=== PATIENT | male | born 1960 | race Caucasian/White ===

== ENCOUNTER 2019-01-01 11:44 | Emergency (ER) | payer MEDICAID, OTHER ==
[~2019-01-01] VITALS: Ht 185.4 cm; Wt 145.1 kg
[2019-01-01 12:43] LABS: Basophils # (auto) 0.1 uL; Basophils % (auto) 0.9 % (0.0-2.0); Eosinophils # (auto) 0.1 uL; Eosinophils % (auto) 0.7 % (0.0-7.0); Hematocrit 46.7 % (41.0-53.0); Hemoglobin 16.1 g/dL (13.5-17.5); Lymphocytes # (auto) 2.1 uL; Lymphocytes % (auto) 21.9 % (10.0-50.0); Mean Corpuscular Hemoglobin 29.6 pg (28.0-32.0); Mean Corpuscular Hgb Conc. 34.5 g/dL (32.0-36.0); Mean Corpuscular Volume 85.8 fL (80.0-100.0); Monocytes # (auto) 0.6 uL; Monocytes % (auto) 6.5 % (0.0-12.0); Neutrophils # (auto) 6.6 uL; Nucleated Red Blood Cells % 0.1 %; Platelet Count (auto) 176 10^3/uL (140-450); Red Blood Cells 5.44 10^6/uL (4.5-5.90); Red Cell Distribution Width 12.8 % (11.8-14.3); White Blood Cell 9.4 10^3/uL (4.4-10.8)
[2019-01-01 12:54] LABS: Albumin 3.4 g/dL (3.4-5.0); Calcium 8.9 mg/dL (8.5-10.1); Potassium 3.7 mmol/L (3.5-5.1)
[2019-01-01 12:59] LABS: BUN/Creatinine Ratio 18.2; Bilirubin, Total 1.1 mg/dL (0.2-1.0); Total Protein 7.5 g/dL (6.4-8.2)
[2019-01-01 15:00] VITALS: BP 119/75
== END 2019-01-01 15:38 | disposition home or self-care (01) ==
LOC: ER 11:44
DX: L03.116 Cellulitis of left lower limb (principal)
CPT/HCPCS: 36415; 80053; 85025; 87040; 93971

== ENCOUNTER 2019-01-05 07:14 | Inpatient (IN) | payer MEDICAID ==
[~2019-01-05] VITALS: Ht 185.4 cm; Wt 133.0 kg
[2019-01-05] MEDS ORDERED: SODIUM CHLORIDE 0.9% 1,000 ML IV ONE ×2 (07:55)
[2019-01-05] MEDS ORDERED: cefTRIAXone 1GM/50ML D5W 50 ML IV ONE (08:00)
[2019-01-05] MEDS ORDERED: PIPERACILLIN-TAZOB 3.375GM 100 ML IV ONE (08:00)
[2019-01-05] MEDS ORDERED: InsuLIN REG 1unit/0.01ml Soln (100units/ml) IV ONE (08:00)
[2019-01-05] MEDS ORDERED: CLINDAMYCIN 900MG IV 50 ML IV ONE (08:00)
[2019-01-05 08:11] LABS: Basophils # (auto) 0.1 uL; Basophils % (auto) 1.1 % (0.0-2.0); Eosinophils # (auto) 0.1 uL; Eosinophils % (auto) 1.5 % (0.0-7.0); Hematocrit 45.9 % (41.0-53.0); Hemoglobin 15.4 g/dL (13.5-17.5); Lymphocytes # (auto) 1.9 uL; Lymphocytes % (auto) 21.8 % (10.0-50.0); Mean Corpuscular Hemoglobin 29.1 pg (28.0-32.0); Mean Corpuscular Hgb Conc. 33.5 g/dL (32.0-36.0); Mean Corpuscular Volume 86.8 fL (80.0-100.0); Monocytes # (auto) 0.5 uL; Monocytes % (auto) 6.1 % (0.0-12.0); Neutrophils # (auto) 5.9 uL; Neutrophils % (auto) 69.5 % (37.0-80.0); Platelet Count (auto) 207 10^3/uL (140-450); Red Blood Cells 5.29 10^6/uL (4.5-5.90); Red Cell Distribution Width 12.8 % (11.8-14.3); White Blood Cell 8.5 10^3/uL (4.4-10.8)
[2019-01-05 08:23] LABS: Potassium 3.5 mmol/L (3.5-5.1)
[2019-01-05 08:24] LABS: Albumin 3.1 g/dL (3.4-5.0); BUN/Creatinine Ratio 20.2; Calcium 8.4 mg/dL (8.5-10.1)
[2019-01-05 08:25] LABS: INR 0.95 (0.9-1.15); Partial Thromboplastin Time 28.5 sec (23.64-32.05)
[2019-01-05 08:26] LABS: Bilirubin, Total 1.2 mg/dL (0.2-1.0); Total Protein 7.5 g/dL (6.4-8.2)
[2019-01-05 09:11] LABS: Urine WBC None Seen /hpf (0 - 3)
[2019-01-05 09:15] LABS: Urine Bacteria NONE SEEN /hpf (None Seen); Urine Blood Negative /uL (Negative); Urine Specific Gravity 1.036 (1.001-1.035)
[2019-01-05] MEDS ORDERED: IOHEXOL 350 MG/ML 100ML IJ ONE (10:29)
[2019-01-05] MEDS ORDERED: MORPHINE SULF INJ 2 MG/ML SYRINGE 1ML IV PRN ×2 (12:00)
[2019-01-05] MEDS ORDERED: ONDANSETRON HCL 4 MG/2 ML VIAL IV PRN (12:00)
[2019-01-05] MEDS ORDERED: HYDROcodone-ACET 5/325MG TAB PO PRN (12:00)
[2019-01-05] MEDS ORDERED: NITROGLYCERIN 0.4 MG SL TAB SL PRN (12:00)
[2019-01-05] MEDS ORDERED: DEXTROSE (50%) 50ML SYRG IV PRN (12:00)
[2019-01-05] MEDS ORDERED: ACETAMINOPHEN 500 MG TAB PO PRN (12:00)
[2019-01-05] MEDS ORDERED: CLINDAMYCIN 300MG IV 50 ML IV SCH (14:00)
[2019-01-05] MEDS: CLINDAMYCIN 300MG IV 50 ML IV SCH ×2 (16:30→23:54)
[2019-01-05 17:00] VITALS: BP 105/47
[2019-01-05] MEDS: InsuLIN REG 1unit/0.01ml Soln (100units/ml) SC SCH ×2 (18:13→23:53)
[2019-01-05] MEDS: ACCU-CHEK COMFORT CURVE STRIP VI SCH ×2 (18:13→23:54)
[2019-01-05 22:00] VITALS: BP 101/62
[2019-01-06 05:00] VITALS: BP_SYST 115; BP_SYST 122; BP_DIAS 69; BP_DIAS 75
[2019-01-06 06:26] LABS: Basophils # (auto) 0.1 uL; Basophils % (auto) 0.8 % (0.0-2.0); Eosinophils # (auto) 0.1 uL; Eosinophils % (auto) 2.1 % (0.0-7.0); Hematocrit 42.1 % (41.0-53.0); Hemoglobin 14.6 g/dL (13.5-17.5); Lymphocytes # (auto) 1.8 uL; Lymphocytes % (auto) 25.9 % (10.0-50.0); Mean Corpuscular Hemoglobin 29.8 pg (28.0-32.0); Mean Corpuscular Hgb Conc. 34.6 g/dL (32.0-36.0); Mean Corpuscular Volume 86.1 fL (80.0-100.0); Monocytes # (auto) 0.5 uL; Monocytes % (auto) 6.9 % (0.0-12.0); Neutrophils # (auto) 4.5 uL; Neutrophils % (auto) 64.3 % (37.0-80.0); Platelet Count (auto) 183 10^3/uL (140-450); Red Blood Cells 4.89 10^6/uL (4.5-5.90); Red Cell Distribution Width 12.9 % (11.8-14.3); White Blood Cell 7.1 10^3/uL (4.4-10.8)
[2019-01-06 06:27] LABS: Albumin 2.4 g/dL (3.4-5.0); Calcium 7.8 mg/dL (8.5-10.1); Potassium 3.9 mmol/L (3.5-5.1)
[2019-01-06 06:32] LABS: BUN/Creatinine Ratio 24.6; Bilirubin, Total 0.6 mg/dL (0.2-1.0); Total Protein 6.5 g/dL (6.4-8.2)
[2019-01-06] MEDS: InsuLIN REG 1unit/0.01ml Soln (100units/ml) SC SCH ×4 (06:38→21:45)
[2019-01-06] MEDS: ACCU-CHEK COMFORT CURVE STRIP VI SCH ×4 (06:38→21:39)
--- NOTE | 2019-01-06 08:00 | NUR ---
Opening Shift Note Assumed care of patient, awake and alert. No S/S of distress/SOB or pain. Instructed on POC and to call for assist PRN, will continue to monitor for changes Q1hr and PRN.
[2019-01-06 09:00] VITALS: BP 124/70
[2019-01-06] MEDS: CLINDAMYCIN 300MG IV 50 ML IV SCH ×2 (09:03→16:59)
[2019-01-06] MEDS: cefTRIAXone 1GM/50ML D5W 50 ML IV SCH (09:03)
[2019-01-06] MEDS: FAMOTIDINE 20 MG TAB PO SCH (09:39)
[2019-01-06 12:52] VITALS: BP 134/72
[2019-01-06 16:48] VITALS: BP 124/83
--- NOTE | 2019-01-06 19:15 | NUR ---
Opening Shift Note Assumed care of patient, awake and alert. No S/S of distress/SOB or pain. POC discussed and questions answered. Bed is locked in lowest position with side rails up x2 for safety. Call light is within reach and patient is encouraged to call if needs anything. Will continue to monitor for changes Q1hr and PRN.
[2019-01-06 22:27] VITALS: BP 109/67
[2019-01-07] MEDS: CLINDAMYCIN 300MG IV 50 ML IV SCH ×3 (00:20→17:50)
[2019-01-07 05:35] VITALS: BP 124/71
[2019-01-07] MEDS: ACCU-CHEK COMFORT CURVE STRIP VI SCH ×4 (06:29→22:35)
[2019-01-07] MEDS: InsuLIN REG 1unit/0.01ml Soln (100units/ml) SC SCH ×4 (06:38→22:40)
--- NOTE | 2019-01-07 08:10 | NUR ---
OPENING SHIFT NOTE ASSUMED CARE OF PATIENT. PATIENT AWAKE AND ALERT & ORIENTED X4. NO SOB OR SIGNS OF DISTRESS NOTED. INSTRUCTED ON POC AND TO CALL FOR ASSISTANCE PRN. BED IN LOWEST POSITION WITH SIDE RAILS UP X2. WILL CONTINUE TO MONITOR.
[2019-01-07 09:00] VITALS: BP 141/88
[2019-01-07] MEDS: FAMOTIDINE 20 MG TAB PO SCH (09:12)
--- NOTE | 2019-01-07 12:37 | NUR ---
Nutrition Assessment Notes please see attached link for complete assessment Est. Needs ABW [id number] kcal (20-23 kcal/kgBW), 108-118 gms pro (1.0-1.1 gms/kgBW). Will continue to monitor pertinent labs and reassess nutrient need prn Addendum: 01/07/19 at [address] Amended: Links added.
[2019-01-07 13:00] VITALS: BP 109/69
[2019-01-07] MEDS: cefTRIAXone 1GM/50ML D5W 50 ML IV SCH (13:09)
[2019-01-07] MEDS: INSULIN LANTUS (GLARGINE) 1 /0.01ml (100units/ml) SC SCH ×2 (13:10→22:40)
--- NOTE | 2019-01-07 13:20 | NUR ---
DR VIERA AT BEDSIDE.
[2019-01-07 16:58] VITALS: BP 134/89
[2019-01-07 22:00] VITALS: BP 119/71
[2019-01-08] MEDS: CLINDAMYCIN 300MG IV 50 ML IV SCH ×2 (00:28→08:08)
[2019-01-08 05:00] VITALS: BP 114/75
[2019-01-08] MEDS: ACCU-CHEK COMFORT CURVE STRIP VI SCH ×2 (06:31→13:21)
[2019-01-08] MEDS: InsuLIN REG 1unit/0.01ml Soln (100units/ml) SC SCH ×2 (06:36→11:30)
--- NOTE | 2019-01-08 08:53 | NUR ---
Opening Shift Note Assumed care of patient, awake and alert, oriented x 4 and verbally responsive. No S/S of distress/SOB or pain. Skin is warm and dry to touch, no s/s of hyperglycemia or hypoglycemia noted. Instructed on POC and to call for assist PRN, will continue to monitor for changes Q1hr and PRN.
[2019-01-08 09:00] VITALS: BP 113/67
[2019-01-08] MEDS: cefTRIAXone 1GM/50ML D5W 50 ML IV SCH (09:09)
[2019-01-08] MEDS: FAMOTIDINE 20 MG TAB PO SCH (09:55)
[2019-01-08] MEDS: INSULIN LANTUS (GLARGINE) 1 /0.01ml (100units/ml) SC SCH (09:55)
--- NOTE | 2019-01-08 11:45 | NUR ---
WOUND CARE NOTE: IN TO PROVIDE DRESSING CHANGE TO WOUND PER DR. VIERA ORDER. PATIENT TO BE DISCHARGED SHORTLY. DISCHARGE PHOTO TAKEN OF WOUND TO LEFT MEDIAL CALF PER PROTOCOL. PATIENT EDUCATED IN WOUND CARE AT THIS TIME. PATIENT VERBALIZED UNDERSTANDING. PATIENT TO FOLLOW UP WITH DR. VIERA FOR OUT PATIENT WOUND CARE. PATIENT TO FOLLOW UP FOR HIS NEWLY DIAGNOSED DIABETES MELLITUS WITH OUTPATIENT PAPER MACHINE TENDER. PATIENT VERBALIZED UNDERSTANDING ON HIS FOLLOW UP INSTRUCTIONS. WOUND CLEANSED, DRESSED PER MD ORDER. PATIENT TOLERATED DRESSING CHANGE WELL, NOTING NO PAIN BY PATIENT.
--- NOTE | 2019-01-08 12:08 | NUR ---
Wound nurse at bedside , dressing change.
--- NOTE | 2019-01-08 13:22 | NUR ---
Order placed for RN diabetic referral, patient notified.
--- NOTE | 2019-01-08 13:33 | NUR ---
Discharge instructions given as ordered. Encourage to follow up with PMD (DISCHARGE HOME. FOLLOW UP WITH DR CHARLA TORRE ON 01/15/19 @ 10:00AM, , [id number] [facility], [facility] [address], [place]. LIGHT ACTIVITY. DIABETIC DIET. SEE PODIATRY/DR SCOTT IN ONE WEEK. RX- TAKE DIRECTED. DIABETIC EDUCATION INFORMATION GIVEN FOR CLASSES.) as instructed. All questions and concerns addressed. Patient verbalized understanding. Medication reconciliation form completed and copy given to patient. IV removed with catheter intact, pressure dressing applied. Patient taken to vehicle via wheelchair with all personal belongings, accompanied by staff and family member. No distress noted at time of departure.
== END 2019-01-08 13:34 | disposition home or self-care (01) | DRG 383 ==
LOC: ER 07:14 → OVERFLOW 07:15 → ER 11:49 → OVERFLOW 12:52 → WEST WING 13:23
PROVIDERS: ADMIT Nurse Practitioner Acute Care; ATTEND Internal Medicine Nephrology
DX: L03.116 Cellulitis of left lower limb (principal); E44.1 Mild protein-calorie malnutrition; E66.01 Morbid (severe) obesity due to excess calories; M19.90 Unspecified osteoarthritis, unspecified site; E11.9 Type 2 diabetes mellitus without complications; Z68.38 Body mass index [BMI] 38.0-38.9, adult; Z80.1 Family history of malignant neoplasm of trachea, bronchus and lung; Z82.3 Family history of stroke
CPT/HCPCS: 36415; 71045; 71275; 73700; 80053; 80061; 81001; 82962; 83036; 83605; 84484; 85025; 85379; 85610; 85730; 87040; 87081; 93005; 93926; G0378; J0696; J1815; J2543; J3490

== ENCOUNTER 2019-09-01 21:31 | Inpatient (IN) | payer MEDICAID ==
[~2019-09-01] VITALS: Ht 185.4 cm; Wt 141.2 kg
[2019-09-01] MEDS ORDERED: ACCU-CHEK COMFORT CURVE STRIP VI ONE (22:15)
[2019-09-01 23:09] LABS: Hematocrit 48.8 % (41.0-53.0); Hemoglobin 16.8 g/dL (13.5-17.5); Mean Corpuscular Hemoglobin 29.5 pg (28.0-32.0); Mean Corpuscular Hgb Conc. 34.3 g/dL (32.0-36.0); Mean Corpuscular Volume 85.9 fL (80.0-100.0); Platelet Count (auto) 154 10^3/uL (140-450); Red Blood Cells 5.69 10^6/uL (4.5-5.90); Red Cell Distribution Width 13.7 % (11.8-14.3); White Blood Cell 20.7 10^3/uL (4.4-10.8)
[2019-09-01 23:14] LABS: Blast Cells 0; Eosinophils % (manual) 0 (0-7); Myelocytes % 0; Promyelocytes % 0; Reactive Lymphocytes 0
[2019-09-01 23:23] LABS: Band Neutrophils % (manual) 8; Basophils % (manual) 1 (0.0-2.0); Lymphocytes % (manual) 2 (10.0-50.0); Metamyelocytes % 1; Monocytes % (manual) 2 (0-12)
[2019-09-01 23:27] LABS: Chloride 98 mmol/L (98-107); Lactic Acid w/Reflex 2.5 mmol/L (0.4-2.0); Potassium 3.5 mmol/L (3.5-5.1); Sodium 131 mmol/L (136-145)
[2019-09-01 23:32] LABS: Alanine Aminotransferase 66 U/L (16-61); Anion Gap 7 (5-15); Aspartate Aminotransferase 57 U/L (15-37); BUN/Creatinine Ratio 12.4; Blood Urea Nitrogen 13 mg/dL (7-18); Carbon Dioxide 26 mmol/L (21-32); GFR African American 94 mL/min; GFR Non-African American 77 mL/min; Glucose 202 mg/dL (74-106); Total Protein 7.2 g/dL (6.4-8.2)
[2019-09-01 23:37] LABS: Alkaline Phosphatase 105 U/L (45-117); Bilirubin, Total 2.5 mg/dL (0.2-1.0)
[2019-09-02] MEDS ORDERED: VANCOMYCIN PER PHARMACY 1,000 MG IV SCH
[2019-09-02] MEDS ORDERED: VANCOMYCIN 1GM/250ML 250 ML IV ONE ×2 (00:15)
[2019-09-02] MEDS ORDERED: SODIUM CHLORIDE 0.9% 3,000 ML IV ONE (00:15)
[2019-09-02] MEDS: PIPERACILLIN-TAZOB 3.375GM 100 ML IV SCH ×2 (00:27→06:01)
[2019-09-02 00:37] LABS: INR 1.23 (0.9-1.15); Partial Thromboplastin Time 31.4 sec (23.64-32.05)
[2019-09-02 01:01] LABS: Urine Bacteria FEW /hpf (None Seen); Urine Blood Negative /uL (Negative); Urine Mucus FEW (None Seen); Urine Specific Gravity 1.016 (1.001-1.035); Urine WBC <1 /hpf (0 - 3)
[2019-09-02] MEDS ORDERED: ACETAMINOPHEN 650 MG RECT SUPP PR ONE (01:45)
[2019-09-02] MEDS ORDERED: IOHEXOL 350 MG/ML 100ML IJ ONE ×2 (02:36)
[2019-09-02] MEDS ORDERED: SODIUM CHLORIDE 0.9% 500 ML IV ONE (04:45)
[2019-09-02] MEDS ORDERED: HYDROcodone-ACET 5/325MG TAB PO PRN (04:45)
[2019-09-02] MEDS ORDERED: MORPHINE SULF INJ 2 MG/ML SYRINGE 1ML IV PRN (04:45)
[2019-09-02] MEDS ORDERED: ONDANSETRON HCL 4 MG/2 ML VIAL IV PRN (04:45)
[2019-09-02] MEDS ORDERED: NITROGLYCERIN 0.4 MG SL TAB SL PRN (04:45)
[2019-09-02] MEDS ORDERED: TEMAZEPAM 15 MG CAP PO PRN (04:45)
[2019-09-02] MEDS ORDERED: DEXTROSE (50%) 50ML SYRG IV PRN (04:45)
[2019-09-02] MEDS: ACCU-CHEK COMFORT CURVE STRIP VI SCH ×4 (05:48→23:51)
[2019-09-02] MEDS: InsuLIN REG 1unit/0.01ml Soln (100units/ml) SC SCH ×4 (05:58→23:51)
[2019-09-02] MEDS ORDERED: CLINDAMYCIN 600MG IV 50 ML IV SCH (06:00)
[2019-09-02] MEDS ORDERED: metroNIDAZOLE 500MG/100ML 100 ML IV SCH (06:00)
[2019-09-02] MEDS: SODIUM CHLORIDE 0.9% 1,000 ML IV SCH ×2 (06:12→16:31)
[2019-09-02] MEDS: ACETAMINOPHEN 325 MG TAB PO PRN ×2 (07:38→21:31)
[2019-09-02] MEDS ORDERED: cefTRIAXone 1GM/50ML D5W 50 ML IV SCH (09:00)
[2019-09-02 09:30] VITALS: BP 115/64
--- NOTE | 2019-09-02 09:30 | NUR ---
Telemetry admit from ER JACQUELYNCHASTITY admitted to Telemetry unit after SBAR received. Patient oriented to MIKEY gardner RN, unit, room, bed, and unit policies regarding patient care and visiting hours. Patient now on continuous telemetry monitoring, tele box # 8 and telemetry reading on arrival to unit is NSRv at 92 bpm. Patient placed on bedside oxygen 2L via nasal cannula, weighed by bedscale and encouraged to call if they need something. All questions and concerns addressed, patient verbalized understanding.
[2019-09-02] MEDS: PANTOPRAZOLE 40 MG TAB PO SCH (11:38)
[2019-09-02] MEDS: VANCOMYCIN 1GM/250ML 250 ML IV SCH ×2 (11:39→18:07)
[2019-09-02 12:00] VITALS: BP 115/77
--- NOTE | 2019-09-02 14:00 | NUR ---
physician rounding Dr. Ken at bedside. Updated her on patient status. New orders received, I will follow through.
[2019-09-02 14:04] VITALS: BP 115/77
[2019-09-02 14:46] VITALS: BP 136/74
[2019-09-02] MEDS ORDERED: PIPERACILLIN-TAZOB 3.375GM 100 ML IV SCH (15:00)
[2019-09-02 15:23] LABS: Alcohol, Urine < 3.0 mg/dL (0-10); Amphetamine Screen, Urine POSITIVE (NEGATIVE); Barbiturate Scree,Urine NEGATIVE (NEGATIVE); Benzodiazephine Screen, Urine NEGATIVE (NEGATIVE); Cannabinoid Screen, Urine NEGATIVE (NEGATIVE); Cocaine Screen, Urine NEGATIVE (NEGATIVE); Opiate Scree,Urine NEGATIVE (NEGATIVE); Phencyclidine Screen, Urine NEGATIVE (NEGATIVE)
--- NOTE | 2019-09-02 15:30 | NUR ---
Spoke with family Spoke with patients daughter, updated her on plan of care, she verbalized understanding.
[2019-09-02] MEDS: PIPERACILLIN-TAZO 4.5GM 100 ML IV SCH ×2 (15:46→21:31)
[2019-09-02 17:00] VITALS: BP 123/75
--- NOTE | 2019-09-02 17:50 | NUR ---
Cooling Measures applied. Patient currently has temp of 99.0 , cooling measures in place.
--- NOTE | 2019-09-02 18:50 | NUR ---
Temperature reassessment After cooling measures were implemented, patients temperature decreased to 97.3. No signs and symptoms of distress noted. I will continue to monitor q1hr and PRN.
--- NOTE | 2019-09-02 19:16 | NUR ---
end of shift note endorsed care to noc brian encarnacion. no s/s of distress noted at this time.
--- NOTE | 2019-09-02 19:31 | NUR ---
Opening Shift Note Assumed care of patient, awake and alert x 4. No S/S of distress/SOB. Bed is in lowest position and locked. Call light within reach. Board updated. Tele box number matches monitor and leads are in correct placement. NS infusing at 100 mls/hr. Instructed on POC and to call for assist PRN, will continue to monitor for changes Q1hr and PRN.
[2019-09-02 22:00] VITALS: BP 119/67
--- NOTE | 2019-09-03 00:12 | NUR ---
Temperature reassessment: 99.2 degrees. Will continue to assess.
[2019-09-03] MEDS: VANCOMYCIN 1GM/250ML 250 ML IV SCH ×2 (02:05→10:36)
--- NOTE | 2019-09-03 02:15 | NUR ---
Temp reassessment: 99.2. Will continue to monitor.
[2019-09-03] MEDS: SODIUM CHLORIDE 0.9% 1,000 ML IV SCH ×2 (04:44→13:30)
[2019-09-03] MEDS: ACCU-CHEK COMFORT CURVE STRIP VI SCH ×3 (05:23→18:16)
[2019-09-03] MEDS: PIPERACILLIN-TAZO 4.5GM 100 ML IV SCH (05:23)
[2019-09-03] MEDS: InsuLIN REG 1unit/0.01ml Soln (100units/ml) SC SCH ×3 (05:38→18:12)
[2019-09-03 05:46] VITALS: BP 128/62
[2019-09-03 06:22] LABS: Basophils # (auto) 0 10 ^3/uL (0-0.2); Basophils % (auto) 0.4 % (0.0-2.0); Eosinophils # (auto) 0 10 ^3/uL (0-0.8); Eosinophils % (auto) 0.2 % (0.0-7.0); Hematocrit 42.5 % (41.0-53.0); Hemoglobin 14.6 g/dL (13.5-17.5); Lymphocytes # (auto) 0.7 10 ^3/uL (0.4-5.4); Lymphocytes % (auto) 8.6 % (10.0-50.0); Mean Corpuscular Hemoglobin 29.4 pg (28.0-32.0); Mean Corpuscular Hgb Conc. 34.4 g/dL (32.0-36.0); Mean Corpuscular Volume 85.4 fL (80.0-100.0); Monocytes # (auto) 0.6 10 ^3/uL (0-1.3); Monocytes % (auto) 6.9 % (0.0-12.0); Neutrophils # (auto) 7.3 10 ^3/uL (1.6-8.6); Neutrophils % (auto) 83.9 % (37.0-80.0); Nucleated Red Blood Cells % 0.3 %; Platelet Count (auto) 114 10^3/uL (140-450); Red Blood Cells 4.98 10^6/uL (4.5-5.90); Red Cell Distribution Width 13.4 % (11.8-14.3); White Blood Cell 8.7 10^3/uL (4.4-10.8)
[2019-09-03 06:39] LABS: Albumin 2.5 g/dL (3.4-5.0); Calcium 7.8 mg/dL (8.5-10.1); Potassium 3.1 mmol/L (3.5-5.1)
[2019-09-03 06:44] LABS: BUN/Creatinine Ratio 11.8; Bilirubin, Total 2.7 mg/dL (0.2-1.0); Total Protein 6.3 g/dL (6.4-8.2)
[2019-09-03 06:54] LABS: Magnesium 2.2 mg/dL (1.6-2.6)
--- NOTE | 2019-09-03 07:30 | NUR ---
Opening Shift Note Assumed care of patient, awake and alert. No S/S of distress/SOB or pain. Instructed on POC and to call for assist PRN, will continue to monitor for changes Q1hr and PRN.
[2019-09-03 09:00] VITALS: BP 149/75
[2019-09-03 09:37] LABS: Hepatitis B Surface Antibody Negative
--- NOTE | 2019-09-03 09:49 | NUR ---
Patient's belongings: shoes, shorts, belt, slippers, underwear, wallet sent home with family member Eddie Trino.
[2019-09-03 10:08] LABS: Hepatitis A Total Antibody Negative
[2019-09-03] MEDS: PANTOPRAZOLE 40 MG TAB PO SCH (10:36)
[2019-09-03] MEDS: ENOXAPARIN SOD 40 MG/0.4 ML SYRINGE SC SCH ×2 (10:36→21:44)
[2019-09-03 11:06] LABS: Hepatitis B Core Total AB Negative; Hepatitis B Surface Antigen Negative (Negative); Hepatitis C Antibody Negative (Negative)
[2019-09-03 13:00] VITALS: BP 113/72
[2019-09-03] MEDS ORDERED: POTASSIUM CHL 20 Meq TABLET PO ONE (13:30)
[2019-09-03] MEDS ORDERED: cefTRIAXone 1GM/50ML D5W 50 ML IV ONE (13:30)
[2019-09-03] MEDS: CLINDAMYCIN HCL 150 MG CAP PO SCH ×2 (13:34→21:42)
[2019-09-03] MEDS: metroNIDAZOLE 500MG/100ML 100 ML IV SCH ×2 (14:57→21:44)
[2019-09-03 16:59] VITALS: BP 113/71
[2019-09-03 22:21] VITALS: BP 124/75
[2019-09-04] MEDS: ACCU-CHEK COMFORT CURVE STRIP VI SCH ×3 (01:03→12:00)
[2019-09-04] MEDS: InsuLIN REG 1unit/0.01ml Soln (100units/ml) SC SCH ×3 (01:08→12:31)
[2019-09-04 05:23] VITALS: BP 112/73
[2019-09-04] MEDS: CLINDAMYCIN HCL 150 MG CAP PO SCH ×2 (05:26→14:43)
[2019-09-04] MEDS: metroNIDAZOLE 500MG/100ML 100 ML IV SCH ×2 (05:26→14:43)
[2019-09-04] MEDS: SODIUM CHLORIDE 0.9% 1,000 ML IV SCH (06:10)
[2019-09-04 06:40] LABS: Basophils # (auto) 0 10 ^3/uL (0-0.2); Basophils % (auto) 0.6 % (0.0-2.0); Eosinophils # (auto) 0.1 10 ^3/uL (0-0.8); Eosinophils % (auto) 0.7 % (0.0-7.0); Hematocrit 41.4 % (41.0-53.0); Hemoglobin 14.2 g/dL (13.5-17.5); Lymphocytes % (auto) 13.6 % (10.0-50.0); Mean Corpuscular Hemoglobin 29.3 pg (28.0-32.0); Mean Corpuscular Hgb Conc. 34.2 g/dL (32.0-36.0); Mean Corpuscular Volume 85.5 fL (80.0-100.0); Monocytes # (auto) 0.6 10 ^3/uL (0-1.3); Monocytes % (auto) 8.5 % (0.0-12.0); Neutrophils # (auto) 5.6 10 ^3/uL (1.6-8.6); Neutrophils % (auto) 76.6 % (37.0-80.0); Nucleated Red Blood Cells % 0.1 %; Platelet Count (auto) 133 10^3/uL (140-450); Red Blood Cells 4.84 10^6/uL (4.5-5.90); Red Cell Distribution Width 13.4 % (11.8-14.3); White Blood Cell 7.3 10^3/uL (4.4-10.8)
[2019-09-04 07:11] LABS: Albumin 2.4 g/dL (3.4-5.0); BUN/Creatinine Ratio 19.3; Bilirubin, Total 1.4 mg/dL (0.2-1.0); Calcium 7.6 mg/dL (8.5-10.1); Total Protein 6.4 g/dL (6.4-8.2)
--- NOTE | 2019-09-04 07:27 | NUR ---
Report given to Austin Gee, patient is resting no distress.
[2019-09-04 09:00] VITALS: BP 125/75
[2019-09-04] MEDS ORDERED: cefTRIAXone 1GM/50ML D5W 50 ML IV SCH (09:00)
[2019-09-04] MEDS: PANTOPRAZOLE 40 MG TAB PO SCH (09:57)
[2019-09-04] MEDS: ENOXAPARIN SOD 40 MG/0.4 ML SYRINGE SC SCH (09:58)
--- NOTE | 2019-09-04 11:30 | NUR ---
Hospitalist at [address] MD Rodríguez at bedside, aware of patient status. New orders for potassium replacement received. Per MD, patient may be discharged, after 1400 dose of IV antibiotics is given to patient. Will carry out new orders and cont to monitor patient.
[2019-09-04] MEDS ORDERED: POTASSIUM EFFERVESENT TAB 25 MEQ PO ONE (11:45)
[2019-09-04] MEDS ORDERED: POTASSIUM CHL 20 Meq TABLET PO ONE (11:45)
[2019-09-04 13:00] VITALS: BP 117/83
[2019-09-04] MEDS ORDERED: METR500T PO (13:36)
[2019-09-04] MEDS ORDERED: LEVO500T21 PO (13:36)
[2019-09-04] MEDS ORDERED: AMOX500T86 PO (13:42)
[2019-09-04 16:04] VITALS: BP 117/83
--- NOTE | 2019-09-04 17:10 | NUR ---
Discharge instructions given as ordered. Encourage to follow up with PMD as instructed. All questions and concerns addressed. Patient verbalized understanding. Medication reconciliation form completed and copy given to patient. IV removed with catheter intact, pressure dressing applied. Telemetry unit returned to ICU. Patient ambulated to vehicle with all personal belongings. No distress noted at time of departure.
== END 2019-09-04 17:00 | disposition home or self-care (01) | DRG 720 ==
LOC: ER 21:31 → TELE 21:32 → TELE-EAST 09-02 09:13
PROVIDERS: ADMIT Nurse Practitioner; ATTEND Internal Medicine Nephrology
DX: A41.9 Sepsis, unspecified organism (principal); E66.01 Morbid (severe) obesity due to excess calories; I11.9 Hypertensive heart disease without heart failure; K76.0 Fatty (change of) liver, not elsewhere classified; A04.9 Bacterial intestinal infection, unspecified; L03.116 Cellulitis of left lower limb; E11.9 Type 2 diabetes mellitus without complications; E78.5 Hyperlipidemia, unspecified; E87.6 Hypokalemia; R74.0 Nonspecific elevation of levels of transaminase and lactic acid dehydrogenase [LDH]; F15.10 Other stimulant abuse, uncomplicated; I87.2 Venous insufficiency (chronic) (peripheral); K57.30 Diverticulosis of large intestine without perforation or abscess without bleeding; Z80.1 Family history of malignant neoplasm of trachea, bronchus and lung; Z91.19 Patient's noncompliance with other medical treatment and regimen; Z82.3 Family history of stroke; Z68.41 Body mass index [BMI] 40.0-44.9, adult
CPT/HCPCS: 36415; 36600; 70450; 71045; 71275; 74177; 76705; 80053; 80061; 80307; 81001; 82550; 82728; 82805; 82962; 83036; 83605; 83735; 83880; 84443; 84484; 85007; 85025; 85027; 85379; 85610; 85730; 86704; 86706; 86708; 86803; 86850; 86900; 86901; 87040; 87086; 87340; 93005; 93306; 93971; G0378; J0696; J1815; J2543; J3490

== ENCOUNTER 2019-09-05 06:28 | Inpatient (IN) | payer MEDICAID ==
[~2019-09-05] VITALS: Ht 185.4 cm; Wt 134.8 kg
[~2019-09-05 06:28] MED LIST: AMOX500T86 PO; LEVO500T21 PO; METR500T PO
[2019-09-05 08:06] LABS: Albumin 2.5 g/dL (3.4-5.0); BUN/Creatinine Ratio 24.6; Calcium 7.7 mg/dL (8.5-10.1); Potassium 3.3 mmol/L (3.5-5.1)
[2019-09-05 08:08] LABS: Bilirubin, Total 1.2 mg/dL (0.2-1.0); Total Protein 6.7 g/dL (6.4-8.2)
[2019-09-05] MEDS ORDERED: SODIUM CHLORIDE 0.9% 1,000 ML IV ONE (08:14)
[2019-09-05] MEDS ORDERED: SODIUM CHLORIDE 0.9% 1,000 ML IVB ONE (08:14)
[2019-09-05] MEDS ORDERED: cefTRIAXone 1GM/50ML D5W 50 ML IV ONE (08:15)
[2019-09-05 08:28] LABS: Basophils # (auto) 0 10 ^3/uL (0-0.2); Basophils % (auto) 0.5 % (0.0-2.0); Eosinophils # (auto) 0.1 10 ^3/uL (0-0.8); Eosinophils % (auto) 1.1 % (0.0-7.0); Hematocrit 42.7 % (41.0-53.0); Hemoglobin 14.9 g/dL (13.5-17.5); Lymphocytes # (auto) 1.1 10 ^3/uL (0.4-5.4); Lymphocytes % (auto) 14.8 % (10.0-50.0); Mean Corpuscular Hemoglobin 29.8 pg (28.0-32.0); Mean Corpuscular Hgb Conc. 34.9 g/dL (32.0-36.0); Mean Corpuscular Volume 85.3 fL (80.0-100.0); Monocytes # (auto) 0.8 10 ^3/uL (0-1.3); Monocytes % (auto) 11.1 % (0.0-12.0); Neutrophils # (auto) 5.5 10 ^3/uL (1.6-8.6); Neutrophils % (auto) 72.5 % (37.0-80.0); Nucleated Red Blood Cells % 0.2 %; Platelet Count (auto) 150 10^3/uL (140-450); Red Blood Cells 5.01 10^6/uL (4.5-5.90); Red Cell Distribution Width 13.1 % (11.8-14.3); White Blood Cell 7.6 10^3/uL (4.4-10.8)
[2019-09-05 09:26] LABS: Urine Bacteria NONE SEEN /hpf (None Seen); Urine Blood Negative /uL (Negative); Urine Mucus FEW (None Seen); Urine Specific Gravity 1.019 (1.001-1.035); Urine WBC 1 /hpf (0 - 3)
[2019-09-05] MEDS ORDERED: IOHEXOL 350 MG/ML 100ML IJ ONE (11:11)
[2019-09-05] MEDS ORDERED: POTASSIUM EFFERVESENT TAB 25 MEQ PO ONE (11:15)
[2019-09-05] MEDS ORDERED: LACTULOSE 20Gm/30ML SOLN PO PRN (12:00)
[2019-09-05] MEDS ORDERED: ACETAMINOPHEN 500 MG TAB PO PRN (12:00)
[2019-09-05] MEDS ORDERED: TEMAZEPAM 15 MG CAP PO PRN (12:00)
[2019-09-05] MEDS ORDERED: DEXTROSE (50%) 50ML SYRG IV PRN (12:00)
[2019-09-05] MEDS ORDERED: PROMETHAZINE HCL 25 MG/ML 1ML IV PRN (12:00)
[2019-09-05] MEDS ORDERED: levoFLOXacin 500MG 100 ML IV ONE (12:45)
[2019-09-05 12:50] VITALS: BP 124/76
[2019-09-05 13:00] VITALS: BP 124/76
[2019-09-05] MEDS: SODIUM CHLORIDE 0.9% 1,000 ML IV SCH (13:53)
[2019-09-05] MEDS: CLINDAMYCIN 600MG IV 50 ML IV SCH ×2 (15:17→22:54)
[2019-09-05] MEDS: InsuLIN REG 1unit/0.01ml Soln (100units/ml) SC SCH ×2 (16:51→21:34)
[2019-09-05] MEDS: ACCU-CHEK COMFORT CURVE STRIP VI SCH ×2 (16:52→21:26)
[2019-09-05 17:00] VITALS: BP 115/54
[2019-09-05] MEDS: traMADol HCL 50 MG TAB PO PRN (21:07)
[2019-09-05] MEDS: FAMOTIDINE 20 MG TAB PO SCH (21:24)
[2019-09-05 22:04] VITALS: BP 134/79
[2019-09-06] MEDS: SODIUM CHLORIDE 0.9% 1,000 ML IV SCH ×2 (00:32→08:26)
[2019-09-06 05:00] VITALS: BP 111/69
[2019-09-06] MEDS: CLINDAMYCIN 600MG IV 50 ML IV SCH ×3 (06:45→22:42)
[2019-09-06] MEDS: ACCU-CHEK COMFORT CURVE STRIP VI SCH ×4 (06:55→22:00)
[2019-09-06] MEDS: InsuLIN REG 1unit/0.01ml Soln (100units/ml) SC SCH ×4 (06:59→22:44)
[2019-09-06 08:41] VITALS: BP 120/79
[2019-09-06] MEDS: FAMOTIDINE 20 MG TAB PO SCH (10:00)
[2019-09-06] MEDS ORDERED: levoFLOXacin 500MG 100 ML IV SCH (10:00)
[2019-09-06] MEDS: ENOXAPARIN SOD 40 MG/0.4 ML SYRINGE SC SCH (10:16)
[2019-09-06 13:00] VITALS: BP_SYST 121; BP_SYST 146; BP_DIAS 64; BP_DIAS 73
[2019-09-06 17:00] VITALS: BP 123/74
[2019-09-06] MEDS: traMADol HCL 50 MG TAB PO PRN (17:18)
[2019-09-06 22:00] VITALS: BP 122/71
[2019-09-06] MEDS: CLOTRIMAZOLE 1 % CREAM 15GM TOP SCH (22:42)
[2019-09-07 05:00] VITALS: BP 126/74
[2019-09-07] MEDS: CLINDAMYCIN 600MG IV 50 ML IV SCH ×3 (06:04→22:27)
[2019-09-07] MEDS: ACCU-CHEK COMFORT CURVE STRIP VI SCH ×4 (06:23→22:27)
[2019-09-07] MEDS: InsuLIN REG 1unit/0.01ml Soln (100units/ml) SC SCH ×4 (06:24→22:27)
[2019-09-07] MEDS ORDERED: LIDOCAINE VISCOUS 2% 15ML UD MT ONE (08:45)
[2019-09-07] MEDS ORDERED: LIDOCAINE VISCOUS 2% 15ML UD MT PRN (08:45)
[2019-09-07 09:00] VITALS: BP 126/74
[2019-09-07] MEDS: levoFLOXacin 750MG 150 ML IV SCH (10:00)
[2019-09-07] MEDS: PANTOPRAZOLE 40 MG TAB PO SCH (10:38)
[2019-09-07] MEDS: CLOTRIMAZOLE 1 % CREAM 15GM TOP SCH ×2 (10:38→22:26)
[2019-09-07] MEDS: ENOXAPARIN SOD 40 MG/0.4 ML SYRINGE SC SCH (10:39)
[2019-09-07 13:00] VITALS: BP 110/73
[2019-09-07] MEDS ORDERED: metFORMIN HYDROCHLORIDE 500 MG TAB PO SCH (18:00)
[2019-09-07 22:00] VITALS: BP 123/69
[2019-09-08 05:00] VITALS: BP 106/58
[2019-09-08] MEDS: CLINDAMYCIN 600MG IV 50 ML IV SCH ×3 (06:13→22:20)
[2019-09-08] MEDS: ACCU-CHEK COMFORT CURVE STRIP VI SCH ×4 (06:13→22:20)
[2019-09-08] MEDS: InsuLIN REG 1unit/0.01ml Soln (100units/ml) SC SCH ×4 (06:14→22:22)
[2019-09-08 09:00] VITALS: BP 117/85
[2019-09-08] MEDS: levoFLOXacin 750MG 150 ML IV SCH (10:41)
[2019-09-08] MEDS: PANTOPRAZOLE 40 MG TAB PO SCH (10:42)
[2019-09-08] MEDS: ENOXAPARIN SOD 40 MG/0.4 ML SYRINGE SC SCH (10:43)
[2019-09-08] MEDS: CLOTRIMAZOLE 1 % CREAM 15GM TOP SCH ×2 (10:43→22:21)
[2019-09-08 13:00] VITALS: BP 111/76
[2019-09-08 16:51] VITALS: BP 122/66
[2019-09-08 16:52] VITALS: BP 126/66
[2019-09-08 21:37] VITALS: BP 106/65
[2019-09-08] MEDS: INSULIN LANTUS (GLARGINE) 1 /0.01ml (100units/ml) SC SCH (22:21)
[2019-09-09 04:47] VITALS: BP 127/73
[2019-09-09] MEDS: CLINDAMYCIN 600MG IV 50 ML IV SCH ×3 (06:19→21:59)
[2019-09-09] MEDS: InsuLIN REG 1unit/0.01ml Soln (100units/ml) SC SCH ×4 (06:33→22:13)
[2019-09-09] MEDS: ACCU-CHEK COMFORT CURVE STRIP VI SCH ×4 (06:33→22:00)
[2019-09-09 06:37] LABS: Basophils # (auto) 0.1 10 ^3/uL (0-0.2); Eosinophils # (auto) 0.1 10 ^3/uL (0-0.8); Hematocrit 45.2 % (41.0-53.0); Hemoglobin 15.3 g/dL (13.5-17.5); Lymphocytes # (auto) 1.7 10 ^3/uL (0.4-5.4); Lymphocytes % (auto) 21.5 % (10.0-50.0); Mean Corpuscular Hgb Conc. 33.9 g/dL (32.0-36.0); Mean Corpuscular Volume 85.5 fL (80.0-100.0); Monocytes # (auto) 0.8 10 ^3/uL (0-1.3); Monocytes % (auto) 9.8 % (0.0-12.0); Neutrophils # (auto) 5.1 10 ^3/uL (1.6-8.6); Neutrophils % (auto) 66.7 % (37.0-80.0); Nucleated Red Blood Cells % 0.1 %; Platelet Count (auto) 264 10^3/uL (140-450); Red Blood Cells 5.29 10^6/uL (4.5-5.90); Red Cell Distribution Width 13.7 % (11.8-14.3); White Blood Cell 7.7 10^3/uL (4.4-10.8)
[2019-09-09 07:02] LABS: BUN/Creatinine Ratio 24.1; Calcium 8.3 mg/dL (8.5-10.1); Potassium 3.8 mmol/L (3.5-5.1)
[2019-09-09 09:00] VITALS: BP 111/67
[2019-09-09] MEDS: PANTOPRAZOLE 40 MG TAB PO SCH (10:00)
[2019-09-09] MEDS: ENOXAPARIN SOD 40 MG/0.4 ML SYRINGE SC SCH (10:01)
[2019-09-09] MEDS: levoFLOXacin 750MG 150 ML IV SCH (10:03)
[2019-09-09] MEDS: CLOTRIMAZOLE 1 % CREAM 15GM TOP SCH ×2 (10:04→22:09)
[2019-09-09 13:00] VITALS: BP 115/76
[2019-09-09 17:00] VITALS: BP 113/69
[2019-09-09 21:45] VITALS: BP 118/79
[2019-09-09] MEDS: INSULIN LANTUS (GLARGINE) 1 /0.01ml (100units/ml) SC SCH (22:13)
[2019-09-10 04:38] VITALS: BP 123/87
[2019-09-10] MEDS: CLINDAMYCIN 600MG IV 50 ML IV SCH ×2 (06:13→14:00)
[2019-09-10] MEDS: ACCU-CHEK COMFORT CURVE STRIP VI SCH ×2 (06:14→11:53)
[2019-09-10] MEDS: InsuLIN REG 1unit/0.01ml Soln (100units/ml) SC SCH ×2 (06:15→11:53)
[2019-09-10 09:00] VITALS: BP 118/69
[2019-09-10] MEDS: levoFLOXacin 750MG 150 ML IV SCH (09:49)
[2019-09-10] MEDS: ENOXAPARIN SOD 40 MG/0.4 ML SYRINGE SC SCH (09:50)
[2019-09-10] MEDS: PANTOPRAZOLE 40 MG TAB PO SCH (09:50)
[2019-09-10] MEDS: CLOTRIMAZOLE 1 % CREAM 15GM TOP SCH (09:58)
[2019-09-10] MEDS ORDERED: METF-370 PO (12:14)
[2019-09-10] MEDS ORDERED: ATO40T PO (12:14)
[2019-09-10] MEDS ORDERED: LEVO500T21 PO (12:15)
[2019-09-10] MEDS ORDERED: AMOX500T86 PO (12:15)
[2019-09-10 12:39] VITALS: BP 128/81
[2019-09-10 12:47] VITALS: BP 128/81
== END 2019-09-10 13:47 | disposition home or self-care (01) | DRG 383 ==
LOC: ER 06:28 → OVERFLOW 06:29 → EAST 12:40
PROVIDERS: ADMIT Internal Medicine; ATTEND Internal Medicine Nephrology
DX: L03.116 Cellulitis of left lower limb (principal); E11.65 Type 2 diabetes mellitus with hyperglycemia; E66.01 Morbid (severe) obesity due to excess calories; F15.10 Other stimulant abuse, uncomplicated; I52 Other heart disorders in diseases classified elsewhere; E87.6 Hypokalemia; Z80.1 Family history of malignant neoplasm of trachea, bronchus and lung; Z82.3 Family history of stroke; Z91.19 Patient's noncompliance with other medical treatment and regimen; Z68.41 Body mass index [BMI] 40.0-44.9, adult
CPT/HCPCS: 36415; 71045; 71275; 73700; 80048; 80053; 81001; 82962; 83605; 83735; 84443; 85025; 85379; 85652; 87040; 87081; 93005; 93971; 96361; 96365; G0378; J0696; J1815; J1956; J3490

== ENCOUNTER 2021-02-04 10:05 | Emergency (ER) | payer MEDICAID ==
[~2021-02-04] VITALS: Ht 185.4 cm; Wt 145.1 kg
[~2021-02-04 10:05] MED LIST changes: +ATO40T PO; -LEVO500T21 PO; +LEVO500T31 PO; +METF-370 PO; -METR500T PO
[2021-02-04 10:54] VITALS: BP 153/94
== END 2021-02-04 12:59 | disposition home or self-care (01) ==
LOC: ER 10:05
DX: S86.911A Strain of unspecified muscle(s) and tendon(s) at lower leg level, right leg, initial encounter (principal); M54.31 Sciatica, right side; E11.9 Type 2 diabetes mellitus without complications; Z79.2 Long term (current) use of antibiotics; Z79.899 Other long term (current) drug therapy; X50.1XXA Overexertion from prolonged static or awkward postures, initial encounter; Y93.89 Activity, other specified; Y92.89 Other specified places as the place of occurrence of the external cause; Y99.8 Other external cause status
CPT/HCPCS: 93971

== ENCOUNTER 2021-10-20 14:56 | Emergency (ER) | payer MEDICAID ==
[~2021-10-20] VITALS: Ht 185.4 cm; Wt 282.0 kg
[2021-10-20 15:18] VITALS: BP 163/94
[2021-10-20] MEDS ORDERED: SODIUM CHLORIDE 0.9% 1,000 ML IV ONE ×2 (16:00→20:00)
[2021-10-20] MEDS ORDERED: ONDANSETRON HCL 4 MG/2 ML VIAL IV ONE (16:00)
[2021-10-20 17:11] LABS: Basophils # (auto) 0.1 10 ^3/uL (0-0.2); Basophils % (auto) 0.6 % (0.0-2.0); Eosinophils # (auto) 0.1 10 ^3/uL (0-0.8); Eosinophils % (auto) 0.6 % (0.0-7.0); Hematocrit 47.5 % (41.0-53.0); Lymphocytes # (auto) 1.7 10 ^3/uL (0.4-5.4); Lymphocytes % (auto) 16.6 % (10.0-50.0); Mean Corpuscular Hemoglobin 28.2 pg (28.0-32.0); Mean Corpuscular Hgb Conc. 33.6 g/dL (32.0-36.0); Monocytes # (auto) 0.5 10 ^3/uL (0-1.3); Monocytes % (auto) 4.8 % (0.0-12.0); Neutrophils # (auto) 8.1 10 ^3/uL (1.6-8.6); Neutrophils % (auto) 77.4 % (37.0-80.0); Nucleated Red Blood Cells % 0.2 %; Red Blood Cells 5.66 10^6/uL (4.5-5.90); Red Cell Distribution Width 12.7 % (11.8-14.3); White Blood Cell 10.4 10^3/uL (4.4-10.8)
[2021-10-20 17:29] LABS: Albumin 3.6 g/dL (3.4-5.0); Calcium 8.9 mg/dL (8.5-10.1); Potassium 3.1 mmol/L (3.5-5.1)
[2021-10-20 17:37] LABS: BUN/Creatinine Ratio 9.7; Total Protein 7.7 g/dL (6.4-8.2)
[2021-10-20] MEDS ORDERED: POTASSIUM CHL 20 Meq TABLET PO ONE (20:00)
== END 2021-10-20 22:46 | disposition left against medical advice (07) ==
LOC: ER 14:56
DX: E11.65 Type 2 diabetes mellitus with hyperglycemia (principal); R07.89 Other chest pain; Z79.2 Long term (current) use of antibiotics; Z79.899 Other long term (current) drug therapy; Z79.84 Long term (current) use of oral hypoglycemic drugs
CPT/HCPCS: 36415; 71045; 80053; 84484; 85025; 99284; J7030

== ENCOUNTER 2021-10-21 09:21 | Inpatient (IN) | payer MEDICAID ==
[~2021-10-21] VITALS: Ht 185.4 cm; Wt 124.9 kg
[2021-10-21] MEDS ORDERED: SODIUM CHLORIDE 0.9% 2,000 ML IV ONE (10:15)
[2021-10-21] MEDS ORDERED: SODIUM CHLORIDE 0.9% 1,000 ML IVB ONE (10:30)
[2021-10-21 10:53] LABS: Basophils # (auto) 0.1 10 ^3/uL (0-0.2); Eosinophils # (auto) 0.1 10 ^3/uL (0-0.8); Eosinophils % (auto) 0.8 % (0.0-7.0); Hematocrit 44.2 % (41.0-53.0); Hemoglobin 15.1 g/dL (13.5-17.5); Lymphocytes # (auto) 2.1 10 ^3/uL (0.4-5.4); Lymphocytes % (auto) 21.4 % (10.0-50.0); Mean Corpuscular Hemoglobin 28.2 pg (28.0-32.0); Mean Corpuscular Volume 82.9 fL (80.0-100.0); Monocytes # (auto) 0.6 10 ^3/uL (0-1.3); Monocytes % (auto) 5.8 % (0.0-12.0); Nucleated Red Blood Cells % 0.1 %; Red Blood Cells 5.33 10^6/uL (4.5-5.90); Red Cell Distribution Width 12.8 % (11.8-14.3); White Blood Cell 9.9 10^3/uL (4.4-10.8)
[2021-10-21 10:59] LABS: Magnesium 2.4 mg/dL (1.6-2.6)
[2021-10-21 11:02] LABS: Albumin 3.2 g/dL (3.4-5.0); Calcium 8.1 mg/dL (8.5-10.1); Potassium 3.4 mmol/L (3.5-5.1)
[2021-10-21 11:04] LABS: Urine Bacteria NONE SEEN /hpf (None Seen); Urine Blood 2+ /uL (Negative); Urine Specific Gravity 1.007 (1.001-1.035); Urine WBC 9 /hpf (0 - 3)
[2021-10-21 11:09] LABS: BUN/Creatinine Ratio 13.2
[2021-10-21 11:11] LABS: Bilirubin, Total 0.9 mg/dL (0.2-1.0); Total Protein 6.7 g/dL (6.4-8.2)
[2021-10-21] MEDS ORDERED: POTASSIUM EFFERVESENT TAB 25 MEQ PO ONE (12:15)
[2021-10-21] MEDS ORDERED: InsuLIN REG 1unit/0.01ml Soln (100units/ml) SC ONE (12:15)
[2021-10-21] MEDS ORDERED: SODIUM CHLORIDE 0.9% 1,000 ML IV ONE (12:15)
[2021-10-21] MEDS ORDERED: InsuLIN REG 1unit/0.01ml Soln (100units/ml) IV ONE (16:00)
[2021-10-21] MEDS ORDERED: DEXTROSE (50%) 50ML SYRG IV PRN (16:15)
[2021-10-21] MEDS: SODIUM CHLORIDE 0.9% 1,000 ML IV SCH (17:39)
[2021-10-21] MEDS: ACCU-CHEK COMFORT CURVE STRIP VI SCH (17:39)
[2021-10-21] MEDS: InsuLIN REG 1unit/0.01ml Soln (100units/ml) SC SCH (17:50)
[2021-10-21 21:38] VITALS: BP 142/74
[2021-10-21] MEDS: INSULIN LANTUS (GLARGINE) 1 /0.01ml (100units/ml) SC SCH (23:06)
[2021-10-22] MEDS: ACCU-CHEK COMFORT CURVE STRIP VI SCH ×4 (00:42→18:13)
[2021-10-22] MEDS: InsuLIN REG 1unit/0.01ml Soln (100units/ml) SC SCH ×4 (00:49→18:15)
[2021-10-22] MEDS: SODIUM CHLORIDE 0.9% 1,000 ML IV SCH ×3 (04:07→18:13)
[2021-10-22 05:00] VITALS: BP_SYST 125; BP_SYST 159; BP_DIAS 105; BP_DIAS 49
[2021-10-22 08:32] LABS: Basophils # (auto) 0.1 10 ^3/uL (0-0.2); Basophils % (auto) 0.5 % (0.0-2.0); Eosinophils # (auto) 0.1 10 ^3/uL (0-0.8); Eosinophils % (auto) 1.2 % (0.0-7.0); Hematocrit 47.3 % (41.0-53.0); Hemoglobin 16.3 g/dL (13.5-17.5); Lymphocytes # (auto) 1.7 10 ^3/uL (0.4-5.4); Lymphocytes % (auto) 16.9 % (10.0-50.0); Mean Corpuscular Hgb Conc. 34.5 g/dL (32.0-36.0); Mean Corpuscular Volume 84.1 fL (80.0-100.0); Monocytes # (auto) 0.5 10 ^3/uL (0-1.3); Monocytes % (auto) 4.8 % (0.0-12.0); Neutrophils # (auto) 7.6 10 ^3/uL (1.6-8.6); Neutrophils % (auto) 76.6 % (37.0-80.0); Nucleated Red Blood Cells % 0.3 %; Red Blood Cells 5.63 10^6/uL (4.5-5.90); Red Cell Distribution Width 12.8 % (11.8-14.3); White Blood Cell 9.9 10^3/uL (4.4-10.8)
[2021-10-22 08:44] LABS: Potassium 3.6 mmol/L (3.5-5.1)
[2021-10-22 09:00] VITALS: BP 132/90
[2021-10-22 09:05] LABS: Albumin 3.3 g/dL (3.4-5.0); BUN/Creatinine Ratio 13.2; Bilirubin, Total 0.7 mg/dL (0.2-1.0); Calcium 8.5 mg/dL (8.5-10.1); Total Protein 6.5 g/dL (6.4-8.2)
[2021-10-22] MEDS: ENOXAPARIN SOD 40 MG/0.4 ML SYRINGE SC SCH (10:41)
[2021-10-22 13:00] VITALS: BP 147/86
[2021-10-22] MEDS ORDERED: LANC-347 XX (14:09)
[2021-10-22] MEDS ORDERED: SYRI25MI4 XX (14:09)
[2021-10-22] MEDS ORDERED: BLOO1KIT60 XX (14:09)
[2021-10-22 17:00] VITALS: BP 147/83
[2021-10-22 22:00] VITALS: BP 149/81
[2021-10-22] MEDS: INSULIN LANTUS (GLARGINE) 1 /0.01ml (100units/ml) SC SCH (22:03)
[2021-10-23] MEDS: ACCU-CHEK COMFORT CURVE STRIP VI SCH ×4 (00:24→17:19)
[2021-10-23] MEDS: InsuLIN REG 1unit/0.01ml Soln (100units/ml) SC SCH ×4 (00:24→17:29)
[2021-10-23] MEDS: SODIUM CHLORIDE 0.9% 1,000 ML IV SCH ×3 (02:30→16:15)
[2021-10-23 04:55] LABS: Calcium 8.1 mg/dL (8.5-10.1); Potassium 3.3 mmol/L (3.5-5.1)
[2021-10-23 04:59] LABS: BUN/Creatinine Ratio 11.3
[2021-10-23 05:00] VITALS: BP 158/94
[2021-10-23 09:00] VITALS: BP 166/89
[2021-10-23] MEDS: ENOXAPARIN SOD 40 MG/0.4 ML SYRINGE SC SCH (10:01)
[2021-10-23] MEDS ORDERED: LISINOPRIL 20 MG TAB PO ONE (10:45)
[2021-10-23 12:50] VITALS: BP 169/97
[2021-10-23 17:00] VITALS: BP 161/98
[2021-10-23] MEDS ORDERED: METF-370 PO (17:46)
[2021-10-23] MEDS ORDERED: INSLANTI SC (17:46)
[2021-10-23] MEDS ORDERED: INSREGI SC (17:46)
[2021-10-23] MEDS ORDERED: LISI-285 PO (17:46)
[2021-10-23 17:55] VITALS: BP 169/88
[2021-10-24] MEDS ORDERED: LISINOPRIL 20 MG TAB PO SCH (10:00)
== END 2021-10-23 19:45 | disposition home or self-care (01) | DRG 420 ==
LOC: ER 09:21 → OVERFLOW 16:15 → WEST WING 21:08
PROVIDERS: ADMIT Registered Nurse; ATTEND Hospitalist
DX: E11.65 Type 2 diabetes mellitus with hyperglycemia (principal); E44.1 Mild protein-calorie malnutrition; E11.21 Type 2 diabetes mellitus with diabetic nephropathy; L03.116 Cellulitis of left lower limb; E66.01 Morbid (severe) obesity due to excess calories; E87.6 Hypokalemia; I10 Essential (primary) hypertension; Z91.14 Patient's other noncompliance with medication regimen; Z82.3 Family history of stroke; Z68.36 Body mass index [BMI] 36.0-36.9, adult
CPT/HCPCS: 36415; 71046; 80048; 80053; 80061; 81001; 82010; 82962; 83036; 83690; 83735; 84443; 85025; 93005; 93971; 96361; 96372; 96374; G0378; J1815

== ENCOUNTER 2021-11-22 08:22 | Inpatient (IN) | payer MEDICAID ==
[~2021-11-22] VITALS: Ht 185.4 cm; Wt 114.5 kg
[~2021-11-22 08:22] MED LIST changes: +BLOO1KIT60 XX; +INSLANTI SC; +INSREGI SC; +LANC-347 XX; +LISI-285 PO; +SYRI25MI4 XX
[2021-11-22] MEDS ORDERED: SODIUM CHLORIDE 0.9% 500 ML IV ONE (09:00)
[2021-11-22] MEDS ORDERED: SODIUM CHLORIDE 0.9% 1,000 ML IV ONE (09:00)
[2021-11-22 09:21] LABS: Urine Bacteria NONE SEEN /hpf (None Seen); Urine Blood 3+ /uL (Negative); Urine Mucus FEW (None Seen); Urine Specific Gravity 1.008 (1.001-1.035); Urine WBC 21 /hpf (0 - 3); Urine WBC Clumps PRESENT /hpf (None Seen)
[2021-11-22 09:33] LABS: Basophils # (auto) 0.1 10 ^3/uL (0-0.2); Basophils % (auto) 1.1 % (0.0-2.0); Eosinophils # (auto) 0.1 10 ^3/uL (0-0.8); Eosinophils % (auto) 1.2 % (0.0-7.0); Hematocrit 36.9 % (41.0-53.0); Hemoglobin 12.6 g/dL (13.5-17.5); Lymphocytes # (auto) 2.4 10 ^3/uL (0.4-5.4); Lymphocytes % (auto) 20.7 % (10.0-50.0); Mean Corpuscular Hemoglobin 28.3 pg (28.0-32.0); Mean Corpuscular Hgb Conc. 34.3 g/dL (32.0-36.0); Mean Corpuscular Volume 82.7 fL (80.0-100.0); Monocytes # (auto) 0.6 10 ^3/uL (0-1.3); Monocytes % (auto) 4.9 % (0.0-12.0); Neutrophils # (auto) 8.4 10 ^3/uL (1.6-8.6); Neutrophils % (auto) 72.1 % (37.0-80.0); Red Blood Cells 4.46 10^6/uL (4.5-5.90); Red Cell Distribution Width 13.6 % (11.8-14.3); White Blood Cell 11.6 10^3/uL (4.4-10.8)
[2021-11-22 09:53] LABS: Albumin 3.5 g/dL (3.4-5.0); Calcium 8.8 mg/dL (8.5-10.1); Potassium 4.5 mmol/L (3.5-5.1)
[2021-11-22 09:56] LABS: BUN/Creatinine Ratio 19.5; Bilirubin, Total 0.8 mg/dL (0.2-1.0); Total Protein 7.4 g/dL (6.4-8.2)
[2021-11-22 10:05] LABS: INR 0.97 (0.9-1.15); Partial Thromboplastin Time 25.6 sec (24.6-33.4)
[2021-11-22] MEDS ORDERED: cefTRIAXone 1GM/50ML D5W 50 ML IV ONE (11:15)
[2021-11-22] MEDS ORDERED: INSULIN LISPRO (HUMAN) 100 UNITS/ML ML SC ONE (11:15)
[2021-11-22] MEDS ORDERED: OLME40TA26 PO (13:26)
[2021-11-22] MEDS ORDERED: CIPR-173 PO (13:26)
[2021-11-22] MEDS ORDERED: ONDANSETRON HCL 4 MG/2 ML VIAL IV PRN (14:30)
[2021-11-22] MEDS ORDERED: DEXTROSE (50%) 50ML SYRG IV PRN (14:30)
[2021-11-22] MEDS ORDERED: DOCUSATE SOD 100 MG CAP PO PRN (14:30)
[2021-11-22] MEDS ORDERED: ACETAMINOPHEN 325 MG TAB PO PRN (14:30)
[2021-11-22] MEDS ORDERED: HYDROcodone-ACET 5/325MG TAB PO PRN (14:30)
[2021-11-22] MEDS ORDERED: MORPHINE SULFATE INJ 2 MG/ml SYRG IV PRN (14:30)
[2021-11-22] MEDS: SODIUM CHLORIDE 0.9% 1,000 ML IV SCH (14:39)
[2021-11-22] MEDS ORDERED: LIDOCAINE 2% JELLY 11ml (GLYDO) UR ONE (16:30)
[2021-11-22] MEDS: ACCU-CHEK COMFORT CURVE STRIP VI SCH ×2 (17:18→21:22)
[2021-11-22] MEDS: InsuLIN REG 1unit/0.01ml Soln (100units/ml) SC SCH ×2 (17:19→21:23)
[2021-11-22 20:40] VITALS: BP 151/101
[2021-11-22 21:50] VITALS: BP 151/101
[2021-11-22] MEDS ORDERED: LABETALOL HCL 5 MG/ML 4ML SYRINGE IV ONE (22:30)
[2021-11-23] MEDS: SODIUM CHLORIDE 0.9% 1,000 ML IV SCH ×2 (00:53→10:30)
[2021-11-23 04:54] VITALS: BP 145/102
[2021-11-23] MEDS: INSULIN LANTUS (GLARGINE) 1 /0.01ml (100units/ml) SC SCH (06:09)
[2021-11-23] MEDS: ACCU-CHEK COMFORT CURVE STRIP VI SCH ×3 (06:10→21:56)
[2021-11-23] MEDS: InsuLIN REG 1unit/0.01ml Soln (100units/ml) SC SCH ×3 (06:17→21:53)
[2021-11-23 06:49] LABS: Basophils # (auto) 0.1 10 ^3/uL (0-0.2); Basophils % (auto) 0.9 % (0.0-2.0); Eosinophils # (auto) 0.2 10 ^3/uL (0-0.8); Eosinophils % (auto) 1.3 % (0.0-7.0); Hemoglobin 14.2 g/dL (13.5-17.5); Lymphocytes % (auto) 15.1 % (10.0-50.0); Mean Corpuscular Hemoglobin 28.3 pg (28.0-32.0); Mean Corpuscular Hgb Conc. 33.8 g/dL (32.0-36.0); Mean Corpuscular Volume 83.7 fL (80.0-100.0); Monocytes # (auto) 0.7 10 ^3/uL (0-1.3); Monocytes % (auto) 5.4 % (0.0-12.0); Neutrophils # (auto) 10.2 10 ^3/uL (1.6-8.6); Neutrophils % (auto) 77.3 % (37.0-80.0); Nucleated Red Blood Cells % 0.1 %; Red Blood Cells 5.02 10^6/uL (4.5-5.90); Red Cell Distribution Width 13.6 % (11.8-14.3); White Blood Cell 13.2 10^3/uL (4.4-10.8)
[2021-11-23 07:02] LABS: Albumin 3.6 g/dL (3.4-5.0); Calcium 9.6 mg/dL (8.5-10.1); Potassium 4.4 mmol/L (3.5-5.1)
[2021-11-23 07:05] LABS: BUN/Creatinine Ratio 16.6; Bilirubin, Total 0.9 mg/dL (0.2-1.0)
[2021-11-23 09:00] VITALS: BP 139/99
[2021-11-23] MEDS: cefTRIAXone 1GM/50ML D5W 50 ML IV SCH ×2 (09:26→11:00)
[2021-11-23 12:38] VITALS: BP 140/101
[2021-11-23] MEDS ORDERED: ceFAZolin 1GM/50ML 100 ML IV ONE (15:45)
[2021-11-23] MEDS ORDERED: MIDAZOLAM HCL 2MG/2ML 2ml VIAL (1mg/ml) ONE (17:02)
[2021-11-23] MEDS ORDERED: fentaNYL CITRATE 5 ML ONE (17:02)
[2021-11-23] MEDS ORDERED: ONDANSETRON HCL 4 MG/2 ML VIAL IV PRN (17:15)
[2021-11-23] MEDS ORDERED: HYDROmorphone HCL 2 MG/ML VL/or syr IV PRN (17:15)
[2021-11-23] MEDS ORDERED: PROPOFOL 10 MG/ML 20 ML IV ONE ×2 (17:23→18:42)
[2021-11-23] MEDS ORDERED: ONDANSETRON HCL 4 MG/2 ML VIAL ONE (17:23)
[2021-11-23] MEDS ORDERED: LIDOCAINE 2% (LOCAL ANESTH.) PF 5ml SDV ONE (17:23)
[2021-11-23] MEDS ORDERED: SUGAMMADEX 200mg/2ml Vial (100MG/ML) IV ONE (18:30)
[2021-11-23] MEDS ORDERED: LABETALOL HCL 5 MG/ML ML 20ML VIAL IV ONE (18:39)
[2021-11-23] MEDS ORDERED: BELLADONNA ALKAL/OPIUM (16.2/30MG) RECT SUPP PR ONE (18:45)
[2021-11-23 21:43] VITALS: BP 146/104
[2021-11-24] MEDS: SODIUM CHLORIDE 0.9% 1,000 ML IV SCH ×2 (01:58→02:58)
[2021-11-24 04:36] VITALS: BP 147/80
[2021-11-24 05:29] LABS: Basophils # (auto) 0.1 10 ^3/uL (0-0.2); Basophils % (auto) 0.8 % (0.0-2.0); Eosinophils # (auto) 0.4 10 ^3/uL (0-0.8); Eosinophils % (auto) 2.5 % (0.0-7.0); Hematocrit 42.3 % (41.0-53.0); Hemoglobin 14.1 g/dL (13.5-17.5); Lymphocytes % (auto) 18.5 % (10.0-50.0); Mean Corpuscular Hemoglobin 28.2 pg (28.0-32.0); Mean Corpuscular Hgb Conc. 33.3 g/dL (32.0-36.0); Mean Corpuscular Volume 84.7 fL (80.0-100.0); Monocytes # (auto) 1.1 10 ^3/uL (0-1.3); Monocytes % (auto) 6.6 % (0.0-12.0); Neutrophils # (auto) 11.5 10 ^3/uL (1.6-8.6); Neutrophils % (auto) 71.6 % (37.0-80.0); Red Blood Cells 4.99 10^6/uL (4.5-5.90); Red Cell Distribution Width 13.6 % (11.8-14.3); White Blood Cell 16.1 10^3/uL (4.4-10.8)
[2021-11-24 05:40] LABS: BUN/Creatinine Ratio 17.5; Calcium 8.8 mg/dL (8.5-10.1); Potassium 3.9 mmol/L (3.5-5.1)
[2021-11-24] MEDS: INSULIN LANTUS (GLARGINE) 1 /0.01ml (100units/ml) SC SCH (06:45)
[2021-11-24] MEDS: InsuLIN REG 1unit/0.01ml Soln (100units/ml) SC SCH ×2 (06:45→12:19)
[2021-11-24] MEDS: ACCU-CHEK COMFORT CURVE STRIP VI SCH ×2 (06:46→12:17)
[2021-11-24 09:00] VITALS: BP 142/94
[2021-11-24] MEDS ORDERED: LISI20TA28 PO (12:20)
[2021-11-24] MEDS ORDERED: CIPR-173 PO (12:20)
[2021-11-24] MEDS ORDERED: METF-370 PO (12:20)
[2021-11-24] MEDS ORDERED: INSLANTI SC (12:20)
[2021-11-24] MEDS ORDERED: ATOR20TA50 PO (12:21)
[2021-11-24] MEDS ORDERED: AMLO-496 PO (12:22)
[2021-11-24 13:00] VITALS: BP 161/96
[2021-11-24] MEDS ORDERED: METO25TA93 PO (13:02)
[2021-11-24] MEDS ORDERED: cloNIDine HCL 0.1 MG TAB PO ONE (13:15)
[2021-11-24 15:11] VITALS: BP 148/92
[2021-11-24 16:00] VITALS: BP 159/90
== END 2021-11-24 16:00 | disposition home or self-care (01) | DRG 710 ==
LOC: ER 08:22 → OVERFLOW 14:26 → WEST WING 20:39
PROVIDERS: ADMIT Internal Medicine; ATTEND Internal Medicine Nephrology
PROC: 0TBB8ZX Excision of Bladder, Via Natural or Artificial Opening Endoscopic, Diagnostic (ICD-10-PCS; principal; 2021-11-23 17:22)
PROC: 0T5B8ZZ Destruction of Bladder, Via Natural or Artificial Opening Endoscopic (ICD-10-PCS; 2021-11-23 17:22)
DX: A41.9 Sepsis, unspecified organism (principal); N17.9 Acute kidney failure, unspecified; E44.1 Mild protein-calorie malnutrition; N13.6 Pyonephrosis; E11.22 Type 2 diabetes mellitus with diabetic chronic kidney disease; E11.65 Type 2 diabetes mellitus with hyperglycemia; E66.9 Obesity, unspecified; E87.6 Hypokalemia; E78.5 Hyperlipidemia, unspecified; N18.31 Chronic kidney disease, stage 3a; E11.21 Type 2 diabetes mellitus with diabetic nephropathy; Z20.822 Contact with and (suspected) exposure to COVID-19; I12.9 Hypertensive chronic kidney disease with stage 1 through stage 4 chronic kidney disease, or unspecified chronic kidney disease; M54.31 Sciatica, right side; Z68.33 Body mass index [BMI] 33.0-33.9, adult; Z80.1 Family history of malignant neoplasm of trachea, bronchus and lung; Z82.3 Family history of stroke; Z91.19 Patient's noncompliance with other medical treatment and regimen
CPT/HCPCS: 36415; 51702; 71045; 74176; 80048; 80053; 81001; 82962; 84154; 85025; 85610; 85730; 86850; 86900; 86901; 87086; 93005; 96361; 96365; 96372; G0378; J0690; J0696; J1815; J2001; J2250; J2405; J2704

== ENCOUNTER 2022-03-01 09:34 | Inpatient (IN) | payer MEDICAID ==
[~2022-03-01] VITALS: Ht 190.5 cm; Wt 129.9 kg
[~2022-03-01 09:34] MED LIST changes: +AMLO-496 PO; -AMOX500T86 PO; +ATOR20TA50 PO; +CIPR-173 PO; -LEVO500T31 PO; -LISI-285 PO; +LISI20TA28 PO; +METO25TA93 PO
[2022-03-01 10:00] LABS: Urine Bacteria FEW /hpf (None Seen); Urine Blood TRACE /uL (Negative); Urine Specific Gravity 1.005 (1.001-1.035); Urine WBC 4 /hpf (0 - 3)
[2022-03-01] MEDS ORDERED: amLODIPine BESYLATE 5 MG TAB PO ONE (10:00)
[2022-03-01 10:15] LABS: Basophils # (auto) 0.1 10 ^3/uL (0-0.2); Basophils % (auto) 0.9 % (0.0-2.0); Eosinophils # (auto) 0.1 10 ^3/uL (0-0.8); Eosinophils % (auto) 1.2 % (0.0-7.0); Hematocrit 26.6 % (41.0-53.0); Hemoglobin 9.1 g/dL (13.5-17.5); Lymphocytes # (auto) 1.2 10 ^3/uL (0.4-5.4); Lymphocytes % (auto) 12.8 % (10.0-50.0); Mean Corpuscular Hemoglobin 30.3 pg (28.0-32.0); Mean Corpuscular Hgb Conc. 34.3 g/dL (32.0-36.0); Mean Corpuscular Volume 88.4 fL (80.0-100.0); Monocytes # (auto) 0.6 10 ^3/uL (0-1.3); Monocytes % (auto) 6.1 % (0.0-12.0); Neutrophils # (auto) 7.5 10 ^3/uL (1.6-8.6); Red Blood Cells 3.01 10^6/uL (4.5-5.90); Red Cell Distribution Width 12.5 % (11.8-14.3); White Blood Cell 9.4 10^3/uL (4.4-10.8)
[2022-03-01 10:50] LABS: Albumin 3.4 g/dL (3.4-5.0); BUN/Creatinine Ratio 12.2; Bilirubin, Total 0.4 mg/dL (0.2-1.0); Calcium 8.6 mg/dL (8.5-10.1)
[2022-03-01 10:51] LABS: Potassium 6.2 mmol/L (3.5-5.1)
[2022-03-01] MEDS ORDERED: CALCIUM GLUC 1,000mg/50ml-NS 50 ML IV ONE ×2 (11:00→13:30)
[2022-03-01] MEDS ORDERED: SODIUM BICARBONATE 8.4 % INJ 50ML VIAL IV ONE (11:00)
[2022-03-01] MEDS ORDERED: cefTRIAXone 1GM/50ML D5W 50 ML IV ONE (11:00)
[2022-03-01] MEDS ORDERED: DEXTROSE (50%) 50ML SYRG IV ONE (11:00)
[2022-03-01] MEDS ORDERED: InsuLIN REG 1unit/0.01ml Soln (100units/ml) IV ONE (11:00)
[2022-03-01] MEDS ORDERED: MORPHINE SULFATE INJ 2 MG/ml SYRG IV PRN ×2 (12:45)
[2022-03-01] MEDS ORDERED: ONDANSETRON HCL 4 MG/2 ML VIAL IV PRN (12:45)
[2022-03-01] MEDS ORDERED: DEXTROSE (50%) 50ML SYRG IV PRN (12:45)
[2022-03-01] MEDS ORDERED: SODIUM ZIRCONIUM CYCL 10 GM PAK PO ONE (12:45)
[2022-03-01] MEDS ORDERED: SODIUM CHLORIDE 0.9% 1,000 ML IV SCH (12:45)
[2022-03-01] MEDS ORDERED: NITROGLYCERIN 0.4 MG SL TAB SL PRN (12:45)
[2022-03-01] MEDS ORDERED: DOCUSATE SOD 100 MG CAP PO PRN (12:45)
[2022-03-01] MEDS ORDERED: ALBUTEROL SULF 2.5 MG/0.5ML(0.5%) NEB SOLN NEB ONE (13:30)
[2022-03-01] MEDS ORDERED: TAMSULOSIN HYDROCHLORIDE 0.4 MG CAP PO ONE (13:30)
[2022-03-01] MEDS: SODIUM ZIRCONIUM CYCL 10 GM PAK PO SCH (14:00)
[2022-03-01 16:38] LABS: BUN/Creatinine Ratio 11.6; Calcium 8.7 mg/dL (8.5-10.1); Potassium 5.4 mmol/L (3.5-5.1)
[2022-03-01] MEDS: InsuLIN REG 1unit/0.01ml Soln (100units/ml) SC SCH (22:00)
[2022-03-01] MEDS: ACCU-CHEK COMFORT CURVE STRIP VI SCH (22:00)
[2022-03-02] MEDS: SODIUM BICARBONATE 50ML VIAL 150 ML in D5W 5% 1,000 ML IV SCH ×3 (00:45→12:15)
[2022-03-02] MEDS: ACCU-CHEK COMFORT CURVE STRIP VI SCH ×5 (01:01→22:35)
[2022-03-02] MEDS: SODIUM ZIRCONIUM CYCL 10 GM PAK PO SCH ×4 (01:09→18:48)
[2022-03-02] MEDS: InsuLIN REG 1unit/0.01ml Soln (100units/ml) SC SCH ×5 (01:11→22:35)
[2022-03-02 04:19] LABS: Basophils # (auto) 0.1 10 ^3/uL (0-0.2); Basophils % (auto) 0.7 % (0.0-2.0); Eosinophils # (auto) 0.1 10 ^3/uL (0-0.8); Hematocrit 25.8 % (41.0-53.0); Hemoglobin 8.7 g/dL (13.5-17.5); Lymphocytes # (auto) 1.1 10 ^3/uL (0.4-5.4); Lymphocytes % (auto) 14.8 % (10.0-50.0); Mean Corpuscular Hemoglobin 29.5 pg (28.0-32.0); Mean Corpuscular Hgb Conc. 33.6 g/dL (32.0-36.0); Mean Corpuscular Volume 87.9 fL (80.0-100.0); Monocytes # (auto) 0.5 10 ^3/uL (0-1.3); Neutrophils # (auto) 5.9 10 ^3/uL (1.6-8.6); Neutrophils % (auto) 77.5 % (37.0-80.0); Red Blood Cells 2.93 10^6/uL (4.5-5.90); Red Cell Distribution Width 12.4 % (11.8-14.3); White Blood Cell 7.6 10^3/uL (4.4-10.8)
[2022-03-02 04:27] LABS: BUN/Creatinine Ratio 12.5; Calcium 8.9 mg/dL (8.5-10.1); Potassium 4.9 mmol/L (3.5-5.1)
[2022-03-02 04:30] LABS: Bilirubin, Total 0.3 mg/dL (0.2-1.0); Total Protein 7.3 g/dL (6.4-8.2)
[2022-03-02] MEDS: cefTRIAXone 1GM/50ML D5W 50 ML IV SCH (09:00)
[2022-03-03] MEDS: SODIUM BICARBONATE 50ML VIAL 150 ML in D5W 5% 1,000 ML IV SCH (03:56)
[2022-03-03] MEDS: SODIUM ZIRCONIUM CYCL 10 GM PAK PO SCH (05:45)
[2022-03-03 06:44] LABS: Basophils # (auto) 0.1 10 ^3/uL (0-0.2); Basophils % (auto) 1.1 % (0.0-2.0); Eosinophils # (auto) 0.1 10 ^3/uL (0-0.8); Eosinophils % (auto) 1.2 % (0.0-7.0); Hematocrit 32.2 % (41.0-53.0); Hemoglobin 10.8 g/dL (13.5-17.5); Lymphocytes # (auto) 1.5 10 ^3/uL (0.4-5.4); Lymphocytes % (auto) 15.7 % (10.0-50.0); Mean Corpuscular Hemoglobin 29.5 pg (28.0-32.0); Mean Corpuscular Hgb Conc. 33.4 g/dL (32.0-36.0); Mean Corpuscular Volume 88.3 fL (80.0-100.0); Monocytes # (auto) 0.5 10 ^3/uL (0-1.3); Monocytes % (auto) 5.4 % (0.0-12.0); Neutrophils # (auto) 7.2 10 ^3/uL (1.6-8.6); Neutrophils % (auto) 76.6 % (37.0-80.0); Nucleated Red Blood Cells % 0.1 %; Red Blood Cells 3.65 10^6/uL (4.5-5.90); Red Cell Distribution Width 12.5 % (11.8-14.3); White Blood Cell 9.4 10^3/uL (4.4-10.8)
[2022-03-03 06:57] LABS: Calcium 8.6 mg/dL (8.5-10.1); Potassium 4.4 mmol/L (3.5-5.1)
[2022-03-03 06:59] LABS: BUN/Creatinine Ratio 12.4
[2022-03-03] MEDS: ACCU-CHEK COMFORT CURVE STRIP VI SCH ×4 (07:09→22:30)
[2022-03-03] MEDS: InsuLIN REG 1unit/0.01ml Soln (100units/ml) SC SCH ×4 (07:09→22:33)
[2022-03-03] MEDS: cefTRIAXone 1GM/50ML D5W 50 ML IV SCH (10:07)
[2022-03-03] MEDS: SOD CHL 0.45% 1,000 ML IV SCH ×3 (11:01→22:29)
[2022-03-03 22:00] VITALS: BP 142/97
[2022-03-04 05:00] VITALS: BP 128/84
[2022-03-04] MEDS: ACCU-CHEK COMFORT CURVE STRIP VI SCH ×4 (06:35→22:37)
[2022-03-04] MEDS: InsuLIN REG 1unit/0.01ml Soln (100units/ml) SC SCH ×4 (06:40→22:39)
[2022-03-04] MEDS: SOD CHL 0.45% 1,000 ML IV SCH ×3 (06:57→22:39)
[2022-03-04] MEDS ORDERED: INFLUENZA QUAD 2022-2023 0.5 ML SYRG IM ONE (07:15)
[2022-03-04] MEDS ORDERED: PNEUMOCOCCAL VACC POLYS 25 MCG/0.5 ML VIAL IM ONE (07:15)
[2022-03-04 08:59] LABS: BUN/Creatinine Ratio 11.6; Calcium 8.7 mg/dL (8.5-10.1)
[2022-03-04 09:00] VITALS: BP 130/75
[2022-03-04] MEDS: cefTRIAXone 1GM/50ML D5W 50 ML IV SCH (10:37)
[2022-03-04 13:00] VITALS: BP 123/54
[2022-03-04 17:00] VITALS: BP 133/65
[2022-03-04 22:00] VITALS: BP 137/88
[2022-03-05 05:00] VITALS: BP 107/66
[2022-03-05] MEDS: ACCU-CHEK COMFORT CURVE STRIP VI SCH ×4 (06:04→21:13)
[2022-03-05] MEDS: InsuLIN REG 1unit/0.01ml Soln (100units/ml) SC SCH ×4 (06:10→21:15)
[2022-03-05] MEDS ORDERED: FUROSEMIDE 40 MG/4 ML VIAL IV ONE (08:45)
[2022-03-05 09:00] VITALS: BP 139/86
[2022-03-05] MEDS: cefTRIAXone 1GM/50ML D5W 50 ML IV SCH (09:20)
[2022-03-05] MEDS: SOD CHL 0.45% 1,000 ML IV SCH ×2 (10:50→18:29)
[2022-03-05 13:00] VITALS: BP 150/70
[2022-03-05 16:24] VITALS: BP 145/90
[2022-03-05 20:00] VITALS: BP 139/66
[2022-03-05 22:00] VITALS: BP 119/68
[2022-03-06] MEDS: SOD CHL 0.45% 1,000 ML IV SCH ×3 (03:48→20:51)
[2022-03-06 05:19] VITALS: BP 119/71
[2022-03-06] MEDS: ACCU-CHEK COMFORT CURVE STRIP VI SCH ×4 (06:15→21:20)
[2022-03-06] MEDS: InsuLIN REG 1unit/0.01ml Soln (100units/ml) SC SCH ×4 (06:16→21:17)
[2022-03-06 08:38] VITALS: BP 129/69
[2022-03-06 08:47] LABS: BUN/Creatinine Ratio 12.3; Calcium 8.4 mg/dL (8.5-10.1); Potassium 3.8 mmol/L (3.5-5.1)
[2022-03-06] MEDS: cefTRIAXone 1GM/50ML D5W 50 ML IV SCH (09:17)
[2022-03-06 09:30] LABS: Protein, Urine 42.3 mg/dL (0.0-11.9)
[2022-03-06 09:46] LABS: Creatinine, Urine 19 mg/dL (30.0-125.0); Sodium Urine 29 mmol/L (40-220)
[2022-03-06 10:24] LABS: Basophils # (auto) 0.1 10 ^3/uL (0-0.2); Basophils % (auto) 0.7 % (0.0-2.0); Eosinophils # (auto) 0.3 10 ^3/uL (0-0.8); Eosinophils % (auto) 3.4 % (0.0-7.0); Hematocrit 30.1 % (41.0-53.0); Hemoglobin 10.1 g/dL (13.5-17.5); Lymphocytes # (auto) 1.9 10 ^3/uL (0.4-5.4); Lymphocytes % (auto) 18.1 % (10.0-50.0); Mean Corpuscular Hemoglobin 29.5 pg (28.0-32.0); Mean Corpuscular Hgb Conc. 33.6 g/dL (32.0-36.0); Mean Corpuscular Volume 87.8 fL (80.0-100.0); Monocytes # (auto) 0.5 10 ^3/uL (0-1.3); Monocytes % (auto) 5.2 % (0.0-12.0); Neutrophils # (auto) 7.4 10 ^3/uL (1.6-8.6); Neutrophils % (auto) 72.6 % (37.0-80.0); Nucleated Red Blood Cells % 0.2 %; Red Blood Cells 3.42 10^6/uL (4.5-5.90); Red Cell Distribution Width 12.5 % (11.8-14.3); White Blood Cell 10.2 10^3/uL (4.4-10.8)
[2022-03-06] MEDS ORDERED: FUROSEMIDE 40 MG/4 ML VIAL IV ONE (11:15)
[2022-03-06 12:39] VITALS: BP 142/61
[2022-03-06 16:42] VITALS: BP 132/91
[2022-03-06 23:49] VITALS: BP_SYST 110; BP_SYST 141; BP_DIAS 67; BP_DIAS 75
[2022-03-07] MEDS: SOD CHL 0.45% 1,000 ML IV SCH ×3 (03:45→19:15)
[2022-03-07 05:30] VITALS: BP 128/65
[2022-03-07] MEDS: ACCU-CHEK COMFORT CURVE STRIP VI SCH ×4 (06:24→22:00)
[2022-03-07] MEDS: InsuLIN REG 1unit/0.01ml Soln (100units/ml) SC SCH ×4 (06:27→22:01)
[2022-03-07] MEDS: cefTRIAXone 1GM/50ML D5W 50 ML IV SCH (09:42)
[2022-03-07 10:37] LABS: INR 1.03 (0.9-1.15); Partial Thromboplastin Time < 20.0 sec (24.6-33.4)
[2022-03-07] MEDS: CALCIUM ACETATE 667 MG CAP PO SCH ×2 (12:00→18:27)
[2022-03-07] MEDS ORDERED: PHENYLEPHRINE HCL 10 MG/ML VL IV ONE (12:13)
[2022-03-07 13:00] VITALS: BP 133/88
[2022-03-07] MEDS ORDERED: PROPOFOL 10 MG/ML 20 ML IV ONE (13:40)
[2022-03-07] MEDS ORDERED: MIDAZOLAM HCL 2MG/2ML 2ml VIAL (1mg/ml) ONE (13:40)
[2022-03-07] MEDS ORDERED: fentaNYL CITRATE 100 MCG/2 ML VL ONE (13:40)
[2022-03-07] MEDS ORDERED: DexAMETHasone SOD PHOS 10MG/1ML VIAL INJ ONE (13:40)
[2022-03-07] MEDS ORDERED: CIPROFLOXACIN 400MG/200ML 200 ML IV ONE (13:58)
[2022-03-07] MEDS ORDERED: IOHEXOL 300 MG/ML 100ML BOTTLE IJ ONE (14:06)
[2022-03-07 17:00] VITALS: BP 151/90
[2022-03-07 22:00] VITALS: BP 123/78
[2022-03-08] MEDS: SOD CHL 0.45% 1,000 ML IV SCH (02:45)
[2022-03-08 05:00] VITALS: BP 109/56
[2022-03-08] MEDS: InsuLIN REG 1unit/0.01ml Soln (100units/ml) SC SCH (06:37)
[2022-03-08] MEDS: ACCU-CHEK COMFORT CURVE STRIP VI SCH (06:38)
[2022-03-08 09:00] VITALS: BP 132/62
[2022-03-08 10:02] LABS: BUN/Creatinine Ratio 13.4; Calcium 8.4 mg/dL (8.5-10.1); Potassium 3.6 mmol/L (3.5-5.1)
[2022-03-08] MEDS ORDERED: HYDR-4902 PO (10:07)
[2022-03-08] MEDS ORDERED: CEFD300C2 PO (10:07)
[2022-03-08 10:44] VITALS: BP 129/69
== END 2022-03-08 12:14 | disposition home or self-care (01) | DRG 463 ==
LOC: ER 09:38 → TELE 12:39 → TELE-WESTW 03-03 18:46
PROVIDERS: ADMIT Nurse Practitioner Family; ATTEND Internal Medicine
PROC: BT141ZZ Fluoroscopy of Kidneys, Ureters and Bladder using Low Osmolar Contrast (ICD-10-PCS; 2022-03-07)
PROC: 0T788DZ Dilation of Bilateral Ureters with Intraluminal Device, Via Natural or Artificial Opening Endoscopic (ICD-10-PCS; principal; 2022-03-07 14:05)
DX: N13.6 Pyonephrosis (principal); N17.1 Acute kidney failure with acute cortical necrosis; D62 Acute posthemorrhagic anemia; E87.20 Acidosis, unspecified; D63.1 Anemia in chronic kidney disease; E11.21 Type 2 diabetes mellitus with diabetic nephropathy; E11.22 Type 2 diabetes mellitus with diabetic chronic kidney disease; N32.0 Bladder-neck obstruction; I16.1 Hypertensive emergency; E11.65 Type 2 diabetes mellitus with hyperglycemia; E78.5 Hyperlipidemia, unspecified; Z20.822 Contact with and (suspected) exposure to COVID-19; E87.5 Hyperkalemia; I12.9 Hypertensive chronic kidney disease with stage 1 through stage 4 chronic kidney disease, or unspecified chronic kidney disease; N18.32 Chronic kidney disease, stage 3b; M54.50 Low back pain, unspecified; R74.01 Elevation of levels of liver transaminase levels; N40.0 Benign prostatic hyperplasia without lower urinary tract symptoms; E66.01 Morbid (severe) obesity due to excess calories; Z68.33 Body mass index [BMI] 33.0-33.9, adult; Z80.1 Family history of malignant neoplasm of trachea, bronchus and lung; Z82.3 Family history of stroke
CPT/HCPCS: 36415; 71046; 72131; 74018; 74176; 76000; 76775; 78707; 80048; 80053; 81001; 82306; 82570; 82962; 83036; 83970; 84100; 84154; 84156; 84300; 84484; 85025; 85610; 85730; 86850; 86900; 86901; 87086; 87426; 93005; 94640; 96374; 96375; 99291; G0378; J0696; J1100; J1815; J2250; J2405; J2704

== ENCOUNTER 2022-03-31 15:29 | Emergency (ER) | payer MEDICAID ==
[~2022-03-31] VITALS: Ht 185.4 cm; Wt 127.9 kg
[~2022-03-31 15:29] MED LIST changes: +CEFD300C2 PO; -CIPR-173 PO; -LISI20TA28 PO
[2022-03-31 16:30] VITALS: BP 155/87
[2022-03-31 17:31] LABS: Urine Bacteria NONE SEEN /hpf (None Seen); Urine Blood Negative /uL (Negative); Urine Specific Gravity 1.006 (1.001-1.035); Urine WBC 25 /hpf (0 - 3)
== END 2022-03-31 21:31 | disposition left against medical advice (07) ==
LOC: ER 15:29
DX: R10.9 Unspecified abdominal pain (principal); E11.9 Type 2 diabetes mellitus without complications; E78.5 Hyperlipidemia, unspecified; I10 Essential (primary) hypertension; Z88.6 Allergy status to analgesic agent
CPT/HCPCS: 81001

== ENCOUNTER 2022-04-28 13:04 | Emergency (ER) | payer MEDICAID ==
[~2022-04-28] VITALS: Ht 185.4 cm; Wt 122.4 kg
[2022-04-28 13:39] LABS: Basophils # (auto) 0.1 10 ^3/uL (0-0.2); Basophils % (auto) 0.7 % (0.0-2.0); Eosinophils # (auto) 0.1 10 ^3/uL (0-0.8); Eosinophils % (auto) 0.6 % (0.0-7.0); Hemoglobin 9.5 g/dL (13.5-17.5); Lymphocytes # (auto) 1.5 10 ^3/uL (0.4-5.4); Lymphocytes % (auto) 8.6 % (10.0-50.0); Mean Corpuscular Hemoglobin 28.8 pg (28.0-32.0); Mean Corpuscular Hgb Conc. 32.8 g/dL (32.0-36.0); Monocytes % (auto) 5.6 % (0.0-12.0); Neutrophils # (auto) 15.2 10 ^3/uL (1.6-8.6); Neutrophils % (auto) 84.5 % (37.0-80.0); Nucleated Red Blood Cells % 0.1 %; Red Cell Distribution Width 12.8 % (11.8-14.3); White Blood Cell 17.9 10^3/uL (4.4-10.8)
[2022-04-28 15:04] LABS: Potassium 4.9 mmol/L (3.5-5.1); Sodium 132 mmol/L (136-145)
[2022-04-28 15:05] LABS: Anion Gap 18 (5-15); Chloride 105 mmol/L (98-107); Glucose 190 mg/dL (74-106)
[2022-04-28 15:06] LABS: Alkaline Phosphatase 124 U/L (45-117); Aspartate Aminotransferase 9 U/L (15-37); BUN/Creatinine Ratio 15.3; GFR African American 8 mL/min; GFR Non-African American 7 mL/min
[2022-04-28 15:09] LABS: Alanine Aminotransferase 15 U/L (16-61)
[2022-04-28 15:10] LABS: Albumin 3.2 g/dL (3.4-5.0); Bilirubin, Total 0.3 mg/dL (0.2-1.0); Total Protein 6.9 g/dL (6.4-8.2)
[2022-04-28 15:12] LABS: Blood Urea Nitrogen 132 mg/dL (7-18); Carbon Dioxide 9 mmol/L (21-32)
[2022-04-28] MEDS ORDERED: SODIUM CHLORIDE 0.9% 1,000 ML IV ONE ×2 (15:45)
[2022-04-28] MEDS ORDERED: InsuLIN R (HUMAN) 100 UNITS in SODIUM CHL 0.9% 99 ML IV SCH (15:45)
[2022-04-28] MEDS ORDERED: DEXTROSE (50%) 50ML SYRG IV PRN ×2 (15:45→21:30)
[2022-04-28] MEDS ORDERED: ACCU-CHEK COMFORT CURVE STRIP VI SCH ×2 (16:30→22:00)
[2022-04-28 19:58] LABS: Calcium 7.1 mg/dL (8.5-10.1); Potassium 4.6 mmol/L (3.5-5.1)
[2022-04-28 21:01] VITALS: BP 139/79
[2022-04-28] MEDS ORDERED: D5W/SOD CHLO 0.9% 1,000 ML IV ONE (21:30)
[2022-04-28] MEDS ORDERED: InsuLIN REG 1unit/0.01ml Soln (100units/ml) SC SCH (22:00)
== END 2022-04-28 21:29 | disposition home or self-care (01) ==
LOC: ER 13:04
DX: E11.10 Type 2 diabetes mellitus with ketoacidosis without coma (principal); N17.0 Acute kidney failure with tubular necrosis; I11.0 Hypertensive heart disease with heart failure; I50.9 Heart failure, unspecified; E78.5 Hyperlipidemia, unspecified; Z20.822 Contact with and (suspected) exposure to COVID-19
CPT/HCPCS: 36415; 36600; 71045; 80048; 80053; 82010; 82805; 82962; 83605; 83880; 84484; 85025; 85379; 87426; 87804; 93005; 96360; 96361; 99285; J1815; J7030

== ENCOUNTER 2022-05-07 18:39 | Inpatient (IN) | payer MEDICAID ==
[~2022-05-07] VITALS: Ht 185.4 cm; Wt 126.1 kg
[2022-05-07] MEDS ORDERED: VANCOMYCIN 1GM/250ML 250 ML IV ONE (19:30)
[2022-05-07] MEDS ORDERED: PIPERACILLIN-TAZOB 3.375GM 100 ML IV ONE (19:30)
[2022-05-07 19:52] LABS: Basophils # (auto) 0 10 ^3/uL (0-0.2); Eosinophils # (auto) 0.1 10 ^3/uL (0-0.8); Eosinophils % (auto) 0.5 % (0.0-7.0); Mean Corpuscular Volume 84.8 fL (80.0-100.0); Monocytes # (auto) 0.9 10 ^3/uL (0-1.3)
[2022-05-07 19:54] LABS: Basophils % (auto) 0.3 % (0.0-2.0); Hematocrit 27.2 % (41.0-53.0); Hemoglobin 9.3 g/dL (13.5-17.5); Lymphocytes % (auto) 6.6 % (10.0-50.0); Mean Corpuscular Hemoglobin 29.1 pg (28.0-32.0); Mean Corpuscular Hgb Conc. 34.3 g/dL (32.0-36.0); Monocytes % (auto) 5.9 % (0.0-12.0); Neutrophils % (auto) 86.7 % (37.0-80.0); Red Blood Cells 3.21 10^6/uL (4.5-5.90); Red Cell Distribution Width 12.6 % (11.8-14.3)
[2022-05-07 19:55] LABS: Albumin 2.9 g/dL (3.4-5.0); BUN/Creatinine Ratio 16.1; Calcium 6.7 mg/dL (8.5-10.1); Potassium 4.2 mmol/L (3.5-5.1)
[2022-05-07 19:58] LABS: Bilirubin, Total 0.3 mg/dL (0.2-1.0); Total Protein 6.8 g/dL (6.4-8.2)
[2022-05-07 20:26] LABS: INR 1.04 (0.9-1.15)
[2022-05-07 20:42] LABS: Blood Alcohol < 3.0 mg/dL (0-5); Lipase 490 U/L (73-393)
[2022-05-07] MEDS ORDERED: HEPARIN SODIUM (PORCINE) 5000 UNITS/ML 1ML VIAL IV ONE (22:30)
[2022-05-07] MEDS ORDERED: HEPARIN DRIP/D5W 100UNITS/ML 250 ML IV SCH (22:30)
[2022-05-07 22:43] LABS: Basophils # (auto) 0 10 ^3/uL (0-0.2); Basophils % (auto) 0.2 % (0.0-2.0); Eosinophils # (auto) 0.1 10 ^3/uL (0-0.8); Eosinophils % (auto) 0.5 % (0.0-7.0); Hematocrit 26.6 % (41.0-53.0); Hemoglobin 9.2 g/dL (13.5-17.5); Lymphocytes % (auto) 6.9 % (10.0-50.0); Mean Corpuscular Hemoglobin 29.3 pg (28.0-32.0); Mean Corpuscular Hgb Conc. 34.6 g/dL (32.0-36.0); Mean Corpuscular Volume 84.6 fL (80.0-100.0); Monocytes # (auto) 0.9 10 ^3/uL (0-1.3); Monocytes % (auto) 6.2 % (0.0-12.0); Neutrophils # (auto) 12.5 10 ^3/uL (1.6-8.6); Neutrophils % (auto) 86.2 % (37.0-80.0); Red Blood Cells 3.14 10^6/uL (4.5-5.90); Red Cell Distribution Width 12.5 % (11.8-14.3); White Blood Cell 14.5 10^3/uL (4.4-10.8)
[2022-05-07 22:59] LABS: INR 1.03 (0.9-1.15)
[2022-05-08] MEDS ORDERED: LACTATED RINGER'S 1,000 ML IV ONE (01:00)
[2022-05-08] MEDS ORDERED: MORPHINE SULFATE INJ 2 MG/ml SYRG IV PRN (07:00)
[2022-05-08] MEDS ORDERED: HYDROcodone-ACET 5/325MG TAB PO PRN (07:00)
[2022-05-08] MEDS ORDERED: DEXTROSE (50%) 50ML SYRG IV PRN (07:00)
[2022-05-08] MEDS ORDERED: ONDANSETRON HCL 4 MG/2 ML VIAL IV PRN (07:00)
[2022-05-08] MEDS ORDERED: NITROGLYCERIN 0.4 MG SL TAB SL PRN (07:00)
[2022-05-08] MEDS ORDERED: ACETAMINOPHEN 325 MG TAB PO PRN (07:00)
[2022-05-08] MEDS: cefTRIAXone 1GM/50ML D5W 50 ML IV SCH (09:40)
[2022-05-08] MEDS: amLODIPine BESYLATE 5 MG TAB PO SCH (10:32)
[2022-05-08] MEDS: SODIUM BICARBONATE 50ML VIAL 50 ML in SOD CHL 0.45% 1,000 ML IV SCH ×2 (10:32→19:45)
[2022-05-08] MEDS: METOPROLOL SUCCINATE XL 50 MG TAB PO SCH (10:33)
[2022-05-08] MEDS: PANTOPRAZOLE 40 MG TAB PO SCH (10:33)
[2022-05-08 11:11] LABS: INR 1.04 (0.9-1.15); Partial Thromboplastin Time 35.5 sec (24.6-33.4)
[2022-05-08] MEDS: InsuLIN REG 1unit/0.01ml Soln (100units/ml) SC SCH ×2 (12:26→18:00)
[2022-05-08] MEDS: ACCU-CHEK COMFORT CURVE STRIP VI SCH ×2 (12:27→18:20)
[2022-05-08 13:37] LABS: Urine Bacteria NONE SEEN /hpf (None Seen); Urine Blood 1+ /uL (Negative); Urine Specific Gravity 1.006 (1.001-1.035); Urine WBC 54 /hpf (0 - 3)
[2022-05-08 13:48] LABS: Alcohol, Urine < 3.0 mg/dL (0-10); Amphetamine Screen, Urine POSITIVE (NEGATIVE); Barbiturate Scree,Urine NEGATIVE (NEGATIVE); Benzodiazephine Screen, Urine NEGATIVE (NEGATIVE); Cannabinoid Screen, Urine NEGATIVE (NEGATIVE); Cocaine Screen, Urine NEGATIVE (NEGATIVE); Protein, Urine 35.4 mg/dL (0.0-11.9)
[2022-05-08 13:55] LABS: Opiate Scree,Urine NEGATIVE (NEGATIVE); Phencyclidine Screen, Urine NEGATIVE (NEGATIVE)
[2022-05-08] MEDS: CLINDAMYCIN 600MG IV 50 ML IV SCH ×2 (14:26→22:21)
[2022-05-08] MEDS ORDERED: HEPARIN DRIP/D5W 100UNITS/ML 250 ML IV SCH (16:00)
[2022-05-08 22:08] LABS: INR 1.04 (0.9-1.15); Partial Thromboplastin Time 37.6 sec (24.6-33.4)
[2022-05-08] MEDS: ATORVASTATIN 20 MG TAB PO SCH (22:22)
[2022-05-08] MEDS: HEPARIN DRIP/D5W 100UNITS/ML 250 ML IV SCH (22:36)
[2022-05-09] MEDS: HEPARIN DRIP/D5W 100UNITS/ML 250 ML IV SCH (00:39)
[2022-05-09] MEDS: InsuLIN REG 1unit/0.01ml Soln (100units/ml) SC SCH ×4 (01:40→18:55)
[2022-05-09 05:07] LABS: Basophils # (auto) 0 10 ^3/uL (0-0.2); Basophils % (auto) 0.3 % (0.0-2.0); Eosinophils # (auto) 0.1 10 ^3/uL (0-0.8); Eosinophils % (auto) 1.1 % (0.0-7.0); Hematocrit 21.8 % (41.0-53.0); Hemoglobin 7.3 g/dL (13.5-17.5); Lymphocytes # (auto) 1.2 10 ^3/uL (0.4-5.4); Lymphocytes % (auto) 10.8 % (10.0-50.0); Mean Corpuscular Hemoglobin 28.5 pg (28.0-32.0); Mean Corpuscular Hgb Conc. 33.7 g/dL (32.0-36.0); Mean Corpuscular Volume 84.8 fL (80.0-100.0); Monocytes # (auto) 0.6 10 ^3/uL (0-1.3); Neutrophils # (auto) 9.5 10 ^3/uL (1.6-8.6); Neutrophils % (auto) 82.8 % (37.0-80.0); Red Blood Cells 2.57 10^6/uL (4.5-5.90); Red Cell Distribution Width 12.4 % (11.8-14.3); White Blood Cell 11.5 10^3/uL (4.4-10.8)
[2022-05-09 05:21] LABS: INR 1.02 (0.9-1.15); Partial Thromboplastin Time 39.6 sec (24.6-33.4)
[2022-05-09 05:26] LABS: Potassium 3.3 mmol/L (3.5-5.1)
[2022-05-09 05:31] LABS: Albumin 2.2 g/dL (3.4-5.0); BUN/Creatinine Ratio 15.7; Calcium 6.3 mg/dL (8.5-10.1)
[2022-05-09 05:33] LABS: Bilirubin, Total 0.2 mg/dL (0.2-1.0)
[2022-05-09] MEDS: CLINDAMYCIN 600MG IV 50 ML IV SCH ×3 (06:00→22:19)
[2022-05-09] MEDS: ACCU-CHEK COMFORT CURVE STRIP VI SCH ×4 (06:00→18:48)
[2022-05-09] MEDS ORDERED: HEPARIN DRIP/D5W 100UNITS/ML 250 ML IV SCH ×2 (06:00→14:30)
[2022-05-09] MEDS: SODIUM BICARBONATE 50ML VIAL 50 ML in SOD CHL 0.45% 1,000 ML IV SCH ×3 (06:28→17:33)
[2022-05-09] MEDS: amLODIPine BESYLATE 5 MG TAB PO SCH (10:09)
[2022-05-09] MEDS: METOPROLOL SUCCINATE XL 50 MG TAB PO SCH (10:09)
[2022-05-09] MEDS: PANTOPRAZOLE 40 MG TAB PO SCH (10:12)
[2022-05-09] MEDS: cefTRIAXone 1GM/50ML D5W 50 ML IV SCH (10:12)
[2022-05-09 13:09] LABS: INR 0.99 (0.9-1.15); Partial Thromboplastin Time 40.7 sec (24.6-33.4)
[2022-05-09 22:00] VITALS: BP 104/66
[2022-05-09] MEDS: ATORVASTATIN 20 MG TAB PO SCH (22:19)
[2022-05-09 22:56] VITALS: BP 107/66
[2022-05-10] MEDS: ACCU-CHEK COMFORT CURVE STRIP VI SCH ×4 (00:15→17:17)
[2022-05-10] MEDS: InsuLIN REG 1unit/0.01ml Soln (100units/ml) SC SCH ×4 (00:37→17:30)
[2022-05-10 00:54] LABS: Urine Bacteria FEW /hpf (None Seen); Urine Blood 3+ /uL (Negative); Urine Hyaline Cast MOD /lpf (0 - 2); Urine Mucus FEW (None Seen); Urine Specific Gravity 1.011 (1.001-1.035); Urine WBC 467 /hpf (0 - 3); Urine WBC Clumps PRESENT /hpf (None Seen)
[2022-05-10] MEDS: SODIUM BICARBONATE 50ML VIAL 50 ML in SOD CHL 0.45% 1,000 ML IV SCH ×3 (02:43→15:24)
[2022-05-10 05:00] VITALS: BP 121/58
[2022-05-10] MEDS: CLINDAMYCIN 600MG IV 50 ML IV SCH ×3 (05:01→21:52)
[2022-05-10 08:00] VITALS: BP 126/75
[2022-05-10 09:00] VITALS: BP 126/75
[2022-05-10] MEDS: amLODIPine BESYLATE 5 MG TAB PO SCH (10:00)
[2022-05-10] MEDS: PANTOPRAZOLE 40 MG TAB PO SCH (10:00)
[2022-05-10] MEDS: METOPROLOL SUCCINATE XL 50 MG TAB PO SCH (10:00)
[2022-05-10] MEDS: cefTRIAXone 1GM/50ML D5W 50 ML IV SCH (10:18)
[2022-05-10 13:00] VITALS: BP 138/78
[2022-05-10 17:00] VITALS: BP 153/87
[2022-05-10 17:31] LABS: Calcium 6.3 mg/dL (8.5-10.1)
[2022-05-10] MEDS ORDERED: POTASSIUM EFFERVESENT TAB 25 MEQ PO ONE (17:45)
[2022-05-10] MEDS: ATORVASTATIN 20 MG TAB PO SCH (21:51)
[2022-05-10 22:00] VITALS: BP 132/78
[2022-05-11] MEDS: SODIUM BICARBONATE 50ML VIAL 50 ML in SOD CHL 0.45% 1,000 ML IV SCH ×3 (00:49→17:41)
[2022-05-11 04:53] VITALS: BP 115/73
[2022-05-11] MEDS: CLINDAMYCIN 600MG IV 50 ML IV SCH ×3 (05:19→22:17)
[2022-05-11] MEDS: ACCU-CHEK COMFORT CURVE STRIP VI SCH ×5 (05:35→23:53)
[2022-05-11] MEDS: InsuLIN REG 1unit/0.01ml Soln (100units/ml) SC SCH ×5 (05:36→23:54)
[2022-05-11 06:29] LABS: Potassium 3.3 mmol/L (3.5-5.1)
[2022-05-11 06:35] LABS: Albumin 2.1 g/dL (3.4-5.0); BUN/Creatinine Ratio 16.2; Calcium 6.2 mg/dL (8.5-10.1)
[2022-05-11 06:37] LABS: Bilirubin, Total 0.3 mg/dL (0.2-1.0); Total Protein 5.3 g/dL (6.4-8.2)
[2022-05-11 09:00] VITALS: BP 119/53
[2022-05-11] MEDS: amLODIPine BESYLATE 5 MG TAB PO SCH (09:20)
[2022-05-11] MEDS: METOPROLOL SUCCINATE XL 50 MG TAB PO SCH (09:21)
[2022-05-11] MEDS: cefTRIAXone 1GM/50ML D5W 50 ML IV SCH (09:21)
[2022-05-11] MEDS ORDERED: POTASSIUM EFFERVESENT TAB 25 MEQ PO ONE (12:30)
[2022-05-11 13:00] VITALS: BP 124/60
[2022-05-11 16:31] VITALS: BP 114/71
[2022-05-11 22:00] VITALS: BP 115/67
[2022-05-11] MEDS: ATORVASTATIN 20 MG TAB PO SCH (22:16)
[2022-05-11] MEDS: MUPIROCIN 2% OINT 15gm or 22gm FOR MRSA NARES TOP SCH (22:17)
[2022-05-12] MEDS: SODIUM BICARBONATE 50ML VIAL 50 ML in SOD CHL 0.45% 1,000 ML IV SCH ×3 (00:53→15:30)
[2022-05-12 05:00] VITALS: BP 102/58
[2022-05-12] MEDS: CLINDAMYCIN 600MG IV 50 ML IV SCH ×3 (05:15→22:07)
[2022-05-12] MEDS: InsuLIN REG 1unit/0.01ml Soln (100units/ml) SC SCH ×3 (05:29→18:14)
[2022-05-12] MEDS: ACCU-CHEK COMFORT CURVE STRIP VI SCH ×3 (05:29→18:05)
[2022-05-12 06:23] LABS: Albumin 2.1 g/dL (3.4-5.0); Potassium 3.4 mmol/L (3.5-5.1)
[2022-05-12 06:28] LABS: BUN/Creatinine Ratio 16.3; Bilirubin, Total 0.3 mg/dL (0.2-1.0); Total Protein 5.8 g/dL (6.4-8.2)
[2022-05-12 06:35] LABS: Calcium 5.8 mg/dL (8.5-10.1)
[2022-05-12 09:00] VITALS: BP 112/68
[2022-05-12] MEDS: cefTRIAXone 1GM/50ML D5W 50 ML IV SCH (09:55)
[2022-05-12] MEDS: amLODIPine BESYLATE 5 MG TAB PO SCH (09:56)
[2022-05-12] MEDS: METOPROLOL SUCCINATE XL 50 MG TAB PO SCH (09:56)
[2022-05-12] MEDS: MUPIROCIN 2% OINT 15gm or 22gm FOR MRSA NARES TOP SCH ×2 (09:58→21:27)
[2022-05-12] MEDS ORDERED: POTASSIUM EFFERVESENT TAB 25 MEQ PO ONE (10:45)
[2022-05-12 13:00] VITALS: BP 96/68
[2022-05-12 17:00] VITALS: BP 104/63
[2022-05-12] MEDS: ATORVASTATIN 20 MG TAB PO SCH (21:27)
[2022-05-12 22:00] VITALS: BP 104/64
[2022-05-13] MEDS: ACCU-CHEK COMFORT CURVE STRIP VI SCH ×3 (00:07→12:04)
[2022-05-13] MEDS: SODIUM BICARBONATE 50ML VIAL 50 ML in SOD CHL 0.45% 1,000 ML IV SCH ×3 (00:07→12:30)
[2022-05-13] MEDS: InsuLIN REG 1unit/0.01ml Soln (100units/ml) SC SCH ×3 (00:09→12:44)
[2022-05-13 05:00] VITALS: BP 99/62
[2022-05-13] MEDS: CLINDAMYCIN 600MG IV 50 ML IV SCH ×2 (05:28→14:34)
[2022-05-13 06:31] LABS: Albumin 2.1 g/dL (3.4-5.0); Potassium 3.2 mmol/L (3.5-5.1)
[2022-05-13 06:39] LABS: BUN/Creatinine Ratio 15.1; Bilirubin, Total 0.2 mg/dL (0.2-1.0); Total Protein 5.7 g/dL (6.4-8.2)
[2022-05-13 06:40] LABS: Calcium 5.8 mg/dL (8.5-10.1)
[2022-05-13 08:00] VITALS: BP 100/64
[2022-05-13 09:00] VITALS: BP 100/64
[2022-05-13] MEDS: amLODIPine BESYLATE 5 MG TAB PO SCH (10:21)
[2022-05-13] MEDS: METOPROLOL SUCCINATE XL 50 MG TAB PO SCH (10:21)
[2022-05-13] MEDS: cefTRIAXone 1GM/50ML D5W 50 ML IV SCH (10:21)
[2022-05-13] MEDS: MUPIROCIN 2% OINT 15gm or 22gm FOR MRSA NARES TOP SCH (10:22)
[2022-05-13] MEDS ORDERED: POTASSIUM CHL 20 Meq TABLET PO ONE (12:30)
[2022-05-13 13:00] VITALS: BP 90/54
[2022-05-13] MEDS ORDERED: CEPH-510 PO (13:27)
[2022-05-13 14:48] VITALS: BP 90/54
[2022-05-14] MEDS ORDERED: POTASSIUM EFFERVESENT TAB 25 MEQ PO SCH (10:00)
== END 2022-05-13 15:29 | disposition home or self-care (01) | DRG 133 ==
LOC: ER 18:39 → TELE 05-08 07:02 → TELE-WESTW 05-09 22:01
PROVIDERS: ADMIT Nurse Practitioner; ATTEND Internal Medicine
DX: J96.01 Acute respiratory failure with hypoxia (principal); N17.0 Acute kidney failure with tubular necrosis; U07.1 COVID-19; N13.6 Pyonephrosis; E87.20 Acidosis, unspecified; N13.8 Other obstructive and reflux uropathy; I50.9 Heart failure, unspecified; I13.0 Hypertensive heart and chronic kidney disease with heart failure and stage 1 through stage 4 chronic kidney disease, or unspecified chronic kidney disease; L03.113 Cellulitis of right upper limb; E11.22 Type 2 diabetes mellitus with diabetic chronic kidney disease; B95.1 Streptococcus, group B, as the cause of diseases classified elsewhere; E66.01 Morbid (severe) obesity due to excess calories; N32.0 Bladder-neck obstruction; R79.89 Other specified abnormal findings of blood chemistry; E11.65 Type 2 diabetes mellitus with hyperglycemia; E87.6 Hypokalemia; S51.801A Unspecified open wound of right forearm, initial encounter; X58.XXXA Exposure to other specified factors, initial encounter; D64.9 Anemia, unspecified; E78.5 Hyperlipidemia, unspecified; I48.91 Unspecified atrial fibrillation; N40.1 Benign prostatic hyperplasia with lower urinary tract symptoms; Z80.1 Family history of malignant neoplasm of trachea, bronchus and lung; Z79.4 Long term (current) use of insulin; Z82.3 Family history of stroke; Y93.89 Activity, other specified; Y92.89 Other specified places as the place of occurrence of the external cause; Y99.8 Other external cause status; N18.32 Chronic kidney disease, stage 3b
CPT/HCPCS: 36415; 36600; 71045; 73206; 76775; 76881; 78582; 80048; 80053; 80307; 80320; 81001; 82010; 82306; 82553; 82570; 82805; 82962; 83690; 83880; 83930; 83970; 84100; 84156; 84300; 84484; 85025; 85379; 85610; 85652; 85730; 86141; 87077; 87081; 87086; 87186; 87205; 87426; 93005; 96365; 96366; 96367; 96375; 99291; G0378; J0696; J1815; J2543; J3490

== ENCOUNTER 2022-07-07 15:33 | Inpatient (IN) | payer MEDICAID ==
[~2022-07-07] VITALS: Ht 182.9 cm; Wt 115.3 kg
[~2022-07-07 15:33] MED LIST changes: -CEFD300C2 PO; +CEPH-510 PO
[2022-07-07 17:10] LABS: Urine Amorphous Crystal FEW /hpf (None Seen); Urine Bacteria FEW /hpf (None Seen); Urine Blood 1+ /uL (Negative); Urine Specific Gravity 1.008 (1.001-1.035); Urine WBC 441 /hpf (0 - 3); Urine WBC Clumps PRESENT /hpf (None Seen)
[2022-07-07 17:12] LABS: Basophils # (auto) 0.1 10 ^3/uL (0-0.2); Basophils % (auto) 0.4 % (0.0-2.0); Eosinophils # (auto) 0 10 ^3/uL (0-0.8); Eosinophils % (auto) 0.2 % (0.0-7.0); Hematocrit 28.6 % (41.0-53.0); Hemoglobin 9.6 g/dL (13.5-17.5); Lymphocytes % (auto) 5.2 % (10.0-50.0); Mean Corpuscular Hemoglobin 27.9 pg (28.0-32.0); Mean Corpuscular Hgb Conc. 33.6 g/dL (32.0-36.0); Monocytes # (auto) 1.2 10 ^3/uL (0-1.3); Monocytes % (auto) 6.5 % (0.0-12.0); Neutrophils # (auto) 16.2 10 ^3/uL (1.6-8.6); Neutrophils % (auto) 87.7 % (37.0-80.0); Red Blood Cells 3.45 10^6/uL (4.5-5.90); Red Cell Distribution Width 13.9 % (11.8-14.3); White Blood Cell 18.4 10^3/uL (4.4-10.8)
[2022-07-07 17:21] LABS: INR 1.14 (0.9-1.15); Partial Thromboplastin Time 24.2 sec (24.6-33.4)
[2022-07-07 17:38] LABS: Albumin 2.2 g/dL (3.4-5.0); Potassium 3.9 mmol/L (3.5-5.1)
[2022-07-07 17:40] LABS: BUN/Creatinine Ratio 14.2 (10.0-20.0); Bilirubin, Total 0.5 mg/dL (0.2-1.0); Total Protein 6.3 g/dL (6.4-8.2)
[2022-07-07] MEDS ORDERED: cefTRIAXone 1GM/50ML D5W 50 ML IV ONE (17:45)
[2022-07-07] MEDS ORDERED: DEXTROSE (50%) 50ML SYRG IV PRN (21:15)
[2022-07-07] MEDS ORDERED: ACETAMINOPHEN 325 MG TAB PO PRN (21:15)
[2022-07-07] MEDS ORDERED: ONDANSETRON HCL 4 MG/2 ML VIAL IV PRN (21:15)
[2022-07-07] MEDS: HYDROcodone-ACET 5/325MG TAB PO PRN (22:23)
[2022-07-07] MEDS: ATORVASTATIN 20 MG TAB PO SCH (22:24)
[2022-07-07] MEDS: ACCU-CHEK COMFORT CURVE STRIP VI SCH (22:24)
[2022-07-07] MEDS: InsuLIN REG 1unit/0.01ml Soln (100units/ml) SC SCH (22:33)
[2022-07-07] MEDS ORDERED: MORPHINE SULFATE INJ 2 MG/ml SYRG IV PRN (23:45)
[2022-07-07] MEDS ORDERED: NITROGLYCERIN 0.4 MG SL TAB SL PRN (23:45)
[2022-07-08] MEDS: HYDROcodone-ACET 5/325MG TAB PO PRN ×3 (02:37→22:46)
[2022-07-08 06:09] LABS: Basophils # (auto) 0.1 10 ^3/uL (0-0.2); Basophils % (auto) 0.3 % (0.0-2.0); Eosinophils # (auto) 0 10 ^3/uL (0-0.8); Eosinophils % (auto) 0.1 % (0.0-7.0); Hemoglobin 9.8 g/dL (13.5-17.5); Lymphocytes # (auto) 1.1 10 ^3/uL (0.4-5.4); Lymphocytes % (auto) 5.8 % (10.0-50.0); Mean Corpuscular Hemoglobin 28.1 pg (28.0-32.0); Mean Corpuscular Hgb Conc. 33.9 g/dL (32.0-36.0); Mean Corpuscular Volume 83.1 fL (80.0-100.0); Monocytes # (auto) 1.1 10 ^3/uL (0-1.3); Monocytes % (auto) 5.9 % (0.0-12.0); Neutrophils # (auto) 16.9 10 ^3/uL (1.6-8.6); Neutrophils % (auto) 87.9 % (37.0-80.0); Nucleated Red Blood Cells % 0.2 %; Red Blood Cells 3.49 10^6/uL (4.5-5.90); Red Cell Distribution Width 13.7 % (11.8-14.3); White Blood Cell 19.2 10^3/uL (4.4-10.8)
[2022-07-08 06:34] LABS: Potassium 3.9 mmol/L (3.5-5.1)
[2022-07-08] MEDS: ACCU-CHEK COMFORT CURVE STRIP VI SCH ×4 (06:38→22:00)
[2022-07-08 06:40] LABS: Albumin 2.1 g/dL (3.4-5.0); BUN/Creatinine Ratio 15.3 (10.0-20.0); Bilirubin, Total 0.4 mg/dL (0.2-1.0); Calcium 8.4 mg/dL (8.5-10.1); Total Protein 6.3 g/dL (6.4-8.2)
[2022-07-08] MEDS: InsuLIN REG 1unit/0.01ml Soln (100units/ml) SC SCH ×4 (06:46→23:22)
[2022-07-08] MEDS ORDERED: POTASSIUM EFFERVESENT TAB 25 MEQ PO ONE (11:00)
[2022-07-08] MEDS: B-COMPLEX W/ C & FOLIC ACID(NEPHROVITE TAB) PO SCH (12:05)
[2022-07-08] MEDS: FAMOTIDINE (10MG/ML) 2ML VL IV SCH (12:05)
[2022-07-08] MEDS: LINEZOLID 600MG/300ML 300 ML IV SCH ×2 (12:06→22:45)
[2022-07-08] MEDS: ASPirin 81 mg TAB PO SCH (12:06)
[2022-07-08] MEDS: SODIUM BICARBONATE 50ML VIAL 100 ML in SOD CHL 0.45% 1,000 ML IV SCH (14:00)
[2022-07-08] MEDS: cefTRIAXone 1GM/50ML D5W 50 ML IV SCH (21:29)
[2022-07-08 22:32] VITALS: BP 109/77
[2022-07-08] MEDS ORDERED: SODIUM BICARBONATE 8.4 % INJ 50ML VIAL IV ONE ×2 (22:34→22:48)
[2022-07-08] MEDS: ATORVASTATIN 20 MG TAB PO SCH (22:45)
[2022-07-09] MEDS: SODIUM BICARBONATE 50ML VIAL 100 ML in SOD CHL 0.45% 1,000 ML IV SCH (00:51)
[2022-07-09 04:24] LABS: Protein, Urine 127.7 mg/dL (0.0-11.9)
[2022-07-09 05:00] VITALS: BP 95/62
[2022-07-09] MEDS: InsuLIN REG 1unit/0.01ml Soln (100units/ml) SC SCH ×4 (06:10→21:18)
[2022-07-09] MEDS: ACCU-CHEK COMFORT CURVE STRIP VI SCH ×4 (06:24→21:19)
[2022-07-09 06:28] LABS: Albumin 1.7 g/dL (3.4-5.0); Calcium 8.3 mg/dL (8.5-10.1); Potassium 3.7 mmol/L (3.5-5.1)
[2022-07-09 06:31] LABS: BUN/Creatinine Ratio 14.8 (10.0-20.0); Bilirubin, Total 0.4 mg/dL (0.2-1.0); Total Protein 6.6 g/dL (6.4-8.2)
[2022-07-09 06:33] LABS: Basophils # (auto) 0 10 ^3/uL (0-0.2); Basophils % (auto) 0.1 % (0.0-2.0); Eosinophils # (auto) 0 10 ^3/uL (0-0.8); Eosinophils % (auto) 0.1 % (0.0-7.0); Hematocrit 27.2 % (41.0-53.0); Hemoglobin 9.4 g/dL (13.5-17.5); Lymphocytes # (auto) 0.9 10 ^3/uL (0.4-5.4); Lymphocytes % (auto) 4.1 % (10.0-50.0); Mean Corpuscular Hemoglobin 28.9 pg (28.0-32.0); Mean Corpuscular Hgb Conc. 34.5 g/dL (32.0-36.0); Mean Corpuscular Volume 83.7 fL (80.0-100.0); Monocytes % (auto) 4.5 % (0.0-12.0); Neutrophils # (auto) 20.3 10 ^3/uL (1.6-8.6); Neutrophils % (auto) 91.2 % (37.0-80.0); Red Blood Cells 3.25 10^6/uL (4.5-5.90); Red Cell Distribution Width 13.9 % (11.8-14.3); White Blood Cell 22.2 10^3/uL (4.4-10.8)
[2022-07-09 09:00] VITALS: BP 115/58
[2022-07-09] MEDS: LINEZOLID 600MG/300ML 300 ML IV SCH (09:58)
[2022-07-09] MEDS: B-COMPLEX W/ C & FOLIC ACID(NEPHROVITE TAB) PO SCH (09:58)
[2022-07-09] MEDS: HYDROcodone-ACET 5/325MG TAB PO PRN ×2 (09:59→21:32)
[2022-07-09] MEDS: FAMOTIDINE (10MG/ML) 2ML VL IV SCH (09:59)
[2022-07-09] MEDS: ASPirin 81 mg TAB PO SCH (10:03)
[2022-07-09] MEDS ORDERED: SODIUM BICARBONATE 8.4 % INJ 50ML VIAL IV ONE (12:00)
[2022-07-09 13:00] VITALS: BP 102/64
[2022-07-09 16:52] VITALS: BP 107/71
[2022-07-09] MEDS: DAPTOmycin 500 MG in SODIUM CHL 0.9% 50 ML IV SCH (17:07)
[2022-07-09] MEDS: cefTRIAXone 1GM/50ML D5W 50 ML IV SCH (21:16)
[2022-07-09] MEDS: ATORVASTATIN 20 MG TAB PO SCH (21:17)
[2022-07-09] MEDS: SODIUM BICARBONATE 650 MG TAB PO SCH (21:17)
[2022-07-09 22:00] VITALS: BP 109/75
[2022-07-10 05:00] VITALS: BP 100/65
[2022-07-10] MEDS: ACCU-CHEK COMFORT CURVE STRIP VI SCH ×4 (06:39→21:07)
[2022-07-10] MEDS: InsuLIN REG 1unit/0.01ml Soln (100units/ml) SC SCH ×4 (06:39→21:07)
[2022-07-10] MEDS: SODIUM BICARBONATE 650 MG TAB PO SCH ×4 (06:41→21:05)
[2022-07-10 09:00] VITALS: BP 114/75
[2022-07-10] MEDS: HYDROcodone-ACET 5/325MG TAB PO PRN ×2 (10:12→22:04)
[2022-07-10] MEDS: ASPirin 81 mg TAB PO SCH (10:12)
[2022-07-10] MEDS: B-COMPLEX W/ C & FOLIC ACID(NEPHROVITE TAB) PO SCH (10:12)
[2022-07-10] MEDS: FAMOTIDINE (10MG/ML) 2ML VL IV SCH (10:12)
[2022-07-10] MEDS: DOCUSATE SOD 100 MG CAP PO PRN (10:20)
[2022-07-10 10:31] LABS: BUN/Creatinine Ratio 15.5 (10.0-20.0); Calcium 8.3 mg/dL (8.5-10.1); Potassium 3.9 mmol/L (3.5-5.1)
[2022-07-10 11:39] LABS: Basophils # (auto) 0 10 ^3/uL (0-0.2); Basophils % (auto) 0.1 % (0.0-2.0); Eosinophils # (auto) 0 10 ^3/uL (0-0.8); Eosinophils % (auto) 0.2 % (0.0-7.0); Hematocrit 30.7 % (41.0-53.0); Hemoglobin 9.9 g/dL (13.5-17.5); Mean Corpuscular Hemoglobin 28.1 pg (28.0-32.0); Mean Corpuscular Hgb Conc. 32.4 g/dL (32.0-36.0); Mean Corpuscular Volume 86.9 fL (80.0-100.0); Neutrophils # (auto) 22.9 10 ^3/uL (1.6-8.6); Neutrophils % (auto) 91.7 % (37.0-80.0); Red Blood Cells 3.53 10^6/uL (4.5-5.90)
[2022-07-10 13:00] VITALS: BP 113/72
[2022-07-10] MEDS ORDERED: FUROSEMIDE 40 MG/4 ML VIAL IV ONE (16:15)
[2022-07-10 17:00] VITALS: BP 115/76
[2022-07-10] MEDS: cefTRIAXone 1GM/50ML D5W 50 ML IV SCH (21:05)
[2022-07-10] MEDS: ATORVASTATIN 20 MG TAB PO SCH (21:05)
[2022-07-10 21:30] VITALS: BP 111/73
[2022-07-11 04:51] VITALS: BP 111/72
[2022-07-11 06:14] LABS: Basophils # (auto) 0.1 10 ^3/uL (0-0.2); Basophils % (auto) 0.5 % (0.0-2.0); Eosinophils # (auto) 0.1 10 ^3/uL (0-0.8); Eosinophils % (auto) 0.3 % (0.0-7.0); Hematocrit 27.5 % (41.0-53.0); Hemoglobin 9.1 g/dL (13.5-17.5); Lymphocytes # (auto) 1.1 10 ^3/uL (0.4-5.4); Lymphocytes % (auto) 5.5 % (10.0-50.0); Mean Corpuscular Hemoglobin 28.6 pg (28.0-32.0); Mean Corpuscular Hgb Conc. 32.9 g/dL (32.0-36.0); Mean Corpuscular Volume 86.8 fL (80.0-100.0); Monocytes # (auto) 1.1 10 ^3/uL (0-1.3); Monocytes % (auto) 5.8 % (0.0-12.0); Neutrophils # (auto) 17.3 10 ^3/uL (1.6-8.6); Neutrophils % (auto) 87.9 % (37.0-80.0); Red Blood Cells 3.17 10^6/uL (4.5-5.90); White Blood Cell 19.7 10^3/uL (4.4-10.8)
[2022-07-11] MEDS: SODIUM BICARBONATE 650 MG TAB PO SCH ×4 (06:24→22:11)
[2022-07-11] MEDS: ACCU-CHEK COMFORT CURVE STRIP VI SCH ×4 (06:25→22:18)
[2022-07-11] MEDS: InsuLIN REG 1unit/0.01ml Soln (100units/ml) SC SCH ×4 (06:25→22:00)
[2022-07-11 06:26] LABS: Calcium 8.4 mg/dL (8.5-10.1); Potassium 3.7 mmol/L (3.5-5.1)
[2022-07-11 06:29] LABS: BUN/Creatinine Ratio 17.5 (10.0-20.0)
[2022-07-11 09:00] VITALS: BP 110/72
[2022-07-11] MEDS ORDERED: FUROSEMIDE 40 MG/4 ML VIAL IV SCH (10:00)
[2022-07-11] MEDS: B-COMPLEX W/ C & FOLIC ACID(NEPHROVITE TAB) PO SCH (10:53)
[2022-07-11] MEDS: FAMOTIDINE (10MG/ML) 2ML VL IV SCH (10:53)
[2022-07-11] MEDS: ASPirin 81 mg TAB PO SCH (10:53)
[2022-07-11] MEDS: ceFAZolin 2 GM in D5W 5% 100 ML IV SCH ×2 (10:53→22:17)
[2022-07-11 13:00] VITALS: BP 110/73
[2022-07-11 15:30] VITALS: BP 116/74
[2022-07-11] MEDS: HYDROcodone-ACET 5/325MG TAB PO PRN (16:08)
[2022-07-11] MEDS: DAPTOmycin 500 MG in SODIUM CHL 0.9% 50 ML IV SCH (17:00)
[2022-07-11 22:00] VITALS: BP 121/79
[2022-07-11] MEDS: ATORVASTATIN 20 MG TAB PO SCH (22:14)
[2022-07-12] MEDS: HYDROcodone-ACET 5/325MG TAB PO PRN ×3 (04:13→20:35)
[2022-07-12 05:00] VITALS: BP 117/81
[2022-07-12] MEDS: SODIUM BICARBONATE 650 MG TAB PO SCH ×4 (06:14→21:44)
[2022-07-12] MEDS: ACCU-CHEK COMFORT CURVE STRIP VI SCH ×4 (06:17→21:32)
[2022-07-12] MEDS: InsuLIN REG 1unit/0.01ml Soln (100units/ml) SC SCH ×4 (06:18→22:00)
[2022-07-12 09:00] VITALS: BP 145/71
[2022-07-12] MEDS: FAMOTIDINE (10MG/ML) 2ML VL IV SCH (09:48)
[2022-07-12] MEDS: ceFAZolin 2 GM in D5W 5% 100 ML IV SCH ×2 (09:48→21:45)
[2022-07-12] MEDS: ASPirin 81 mg TAB PO SCH (09:48)
[2022-07-12] MEDS: B-COMPLEX W/ C & FOLIC ACID(NEPHROVITE TAB) PO SCH (09:48)
[2022-07-12 12:34] LABS: BUN/Creatinine Ratio 16.8 (10.0-20.0); Calcium 7.9 mg/dL (8.5-10.1)
[2022-07-12 13:00] VITALS: BP 128/75
[2022-07-12 17:00] VITALS: BP 119/76
[2022-07-12] MEDS: ATORVASTATIN 20 MG TAB PO SCH (21:44)
[2022-07-12] MEDS: DOCUSATE SOD 100 MG CAP PO PRN (21:44)
[2022-07-12 22:00] VITALS: BP 124/72
[2022-07-13 05:00] VITALS: BP 118/75
[2022-07-13] MEDS: SODIUM BICARBONATE 650 MG TAB PO SCH ×4 (06:43→21:35)
[2022-07-13] MEDS: InsuLIN REG 1unit/0.01ml Soln (100units/ml) SC SCH ×4 (06:43→21:55)
[2022-07-13] MEDS: ACCU-CHEK COMFORT CURVE STRIP VI SCH ×4 (06:43→21:55)
[2022-07-13 07:06] LABS: Basophils # (auto) 0.1 10 ^3/uL (0-0.2); Basophils % (auto) 0.3 % (0.0-2.0); Eosinophils # (auto) 0.1 10 ^3/uL (0-0.8); Eosinophils % (auto) 0.7 % (0.0-7.0); Hematocrit 28.5 % (41.0-53.0); Hemoglobin 9.3 g/dL (13.5-17.5); Lymphocytes # (auto) 1.2 10 ^3/uL (0.4-5.4); Mean Corpuscular Hgb Conc. 32.8 g/dL (32.0-36.0); Mean Corpuscular Volume 85.3 fL (80.0-100.0); Monocytes # (auto) 0.9 10 ^3/uL (0-1.3); Monocytes % (auto) 5.2 % (0.0-12.0); Neutrophils # (auto) 15.3 10 ^3/uL (1.6-8.6); Neutrophils % (auto) 86.8 % (37.0-80.0); Nucleated Red Blood Cells % 0.1 %; Red Blood Cells 3.34 10^6/uL (4.5-5.90); Red Cell Distribution Width 13.8 % (11.8-14.3); White Blood Cell 17.6 10^3/uL (4.4-10.8)
[2022-07-13 09:25] VITALS: BP 125/82
[2022-07-13] MEDS: B-COMPLEX W/ C & FOLIC ACID(NEPHROVITE TAB) PO SCH (12:07)
[2022-07-13] MEDS: ceFAZolin 2 GM in D5W 5% 100 ML IV SCH ×2 (12:08→21:37)
[2022-07-13] MEDS: FAMOTIDINE (10MG/ML) 2ML VL IV SCH (12:08)
[2022-07-13] MEDS: ASPirin 81 mg TAB PO SCH (12:08)
[2022-07-13 12:43] VITALS: BP 117/83
[2022-07-13] MEDS ORDERED: DAPTOmycin 500 MG in SODIUM CHL 0.9% 50 ML IV SCH ×2 (17:00→20:00)
[2022-07-13 17:32] VITALS: BP 137/76
[2022-07-13] MEDS: ATORVASTATIN 20 MG TAB PO SCH (21:35)
[2022-07-13 22:00] VITALS: BP 131/87
[2022-07-14] VITALS (7 sets, daily range): BP systolic 111–139; BP diastolic 73–88
[2022-07-14] MEDS: SODIUM BICARBONATE 650 MG TAB PO SCH ×4 (06:00→21:32)
[2022-07-14] MEDS: ACCU-CHEK COMFORT CURVE STRIP VI SCH ×4 (06:15→21:32)
[2022-07-14] MEDS: InsuLIN REG 1unit/0.01ml Soln (100units/ml) SC SCH ×5 (06:15→21:46)
[2022-07-14] MEDS: ceFAZolin 2 GM in D5W 5% 100 ML IV SCH ×2 (09:46→21:32)
[2022-07-14] MEDS: FAMOTIDINE (10MG/ML) 2ML VL IV SCH (09:50)
[2022-07-14] MEDS: B-COMPLEX W/ C & FOLIC ACID(NEPHROVITE TAB) PO SCH (09:51)
[2022-07-14] MEDS: ASPirin 81 mg TAB PO SCH (09:51)
[2022-07-14 10:56] LABS: Basophils # (auto) 0.1 10 ^3/uL (0-0.2); Eosinophils # (auto) 0.1 10 ^3/uL (0-0.8); Hemoglobin 9.6 g/dL (13.5-17.5); Monocytes % (auto) 5.2 % (0.0-12.0)
[2022-07-14 10:57] LABS: Basophils % (auto) 0.6 % (0.0-2.0); Eosinophils % (auto) 0.6 % (0.0-7.0); Lymphocytes # (auto) 1.3 10 ^3/uL (0.4-5.4); Lymphocytes % (auto) 6.6 % (10.0-50.0); Mean Corpuscular Hemoglobin 28.1 pg (28.0-32.0); Mean Corpuscular Hgb Conc. 32.9 g/dL (32.0-36.0); Mean Corpuscular Volume 85.3 fL (80.0-100.0); Neutrophils # (auto) 16.9 10 ^3/uL (1.6-8.6); White Blood Cell 19.5 10^3/uL (4.4-10.8)
[2022-07-14 11:13] LABS: BUN/Creatinine Ratio 17.7 (10.0-20.0); Calcium 8.5 mg/dL (8.5-10.1); Potassium 4.2 mmol/L (3.5-5.1)
[2022-07-14] MEDS ORDERED: POLYETHYLENE GLYCOL 17 GM PWDR PO PRN (14:45)
[2022-07-14] MEDS: ATORVASTATIN 20 MG TAB PO SCH (21:32)
[2022-07-14] MEDS: HYDROcodone-ACET 5/325MG TAB PO PRN (22:30)
[2022-07-15 05:00] VITALS: BP 138/78
[2022-07-15] MEDS: SODIUM BICARBONATE 650 MG TAB PO SCH (05:32)
[2022-07-15] MEDS: ACCU-CHEK COMFORT CURVE STRIP VI SCH ×2 (05:32→11:30)
[2022-07-15] MEDS: HYDROcodone-ACET 5/325MG TAB PO PRN (05:34)
[2022-07-15] MEDS: InsuLIN REG 1unit/0.01ml Soln (100units/ml) SC SCH ×2 (05:35→11:59)
[2022-07-15] MEDS: FAMOTIDINE (10MG/ML) 2ML VL IV SCH (08:05)
[2022-07-15] MEDS: B-COMPLEX W/ C & FOLIC ACID(NEPHROVITE TAB) PO SCH (08:05)
[2022-07-15] MEDS: ceFAZolin 2 GM in D5W 5% 100 ML IV SCH (08:05)
[2022-07-15] MEDS: ASPirin 81 mg TAB PO SCH (08:05)
[2022-07-15 09:00] VITALS: BP 122/74
[2022-07-15] MEDS ORDERED: SOD CHL 0.45% 1,000 ML IV SCH (11:30)
[2022-07-15 13:03] VITALS: BP 111/70
[2022-07-15] MEDS ORDERED: CEPH-510 PO (13:15)
[2022-07-15 15:06] VITALS: BP 115/76
== END 2022-07-15 16:10 | disposition home or self-care (01) | DRG 720 ==
LOC: EDBD 15:33 → ER 15:33 → TELE 23:45 → TELE-WESTW 07-08 21:52 → UNDODISIN 07-12 15:07
PROVIDERS: ADMIT Nurse Practitioner Family; ATTEND Internal Medicine
DX: A41.01 Sepsis due to Methicillin susceptible Staphylococcus aureus (principal); I50.23 Acute on chronic systolic (congestive) heart failure; N17.9 Acute kidney failure, unspecified; E88.09 Other disorders of plasma-protein metabolism, not elsewhere classified; D63.8 Anemia in other chronic diseases classified elsewhere; E87.1 Hypo-osmolality and hyponatremia; N13.8 Other obstructive and reflux uropathy; E11.22 Type 2 diabetes mellitus with diabetic chronic kidney disease; I13.0 Hypertensive heart and chronic kidney disease with heart failure and stage 1 through stage 4 chronic kidney disease, or unspecified chronic kidney disease; N39.0 Urinary tract infection, site not specified; R33.8 Other retention of urine; N39.498 Other specified urinary incontinence; I48.91 Unspecified atrial fibrillation; R65.20 Severe sepsis without septic shock; E11.65 Type 2 diabetes mellitus with hyperglycemia; N18.9 Chronic kidney disease, unspecified; N40.1 Benign prostatic hyperplasia with lower urinary tract symptoms; E78.5 Hyperlipidemia, unspecified; Z80.1 Family history of malignant neoplasm of trachea, bronchus and lung; Z82.3 Family history of stroke; Z87.440 Personal history of urinary (tract) infections
CPT/HCPCS: 36415; 71045; 76775; 78582; 80048; 80053; 81001; 82306; 82570; 82962; 83036; 83880; 83970; 84100; 84156; 84300; 84484; 85025; 85379; 85610; 85730; 87040; 87077; 87081; 87086; 87088; 87147; 87186; 93306; 93970; 96365; G0378; J0696; J1815; J3490

== ENCOUNTER 2022-08-24 14:47 | Inpatient (IN) | payer MEDICAID ==
[~2022-08-24] VITALS: Ht 182.9 cm; Wt 124.8 kg
[~2022-08-24 14:47] MED LIST changes: -AMLO-496 PO; +AMLO1TAB23 PO
[2022-08-24 16:51] LABS: Basophils # (auto) 0.1 10 ^3/uL (0-0.2); Eosinophils # (auto) 0 10 ^3/uL (0-0.8); Hematocrit 25.5 % (41.0-53.0); Neutrophils # (auto) 11.8 10 ^3/uL (1.6-8.6); White Blood Cell 14.2 10^3/uL (4.4-10.8)
[2022-08-24 16:52] LABS: Eosinophils % (auto) 0.2 % (0.0-7.0); Hemoglobin 8.1 g/dL (13.5-17.5); Lymphocytes # (auto) 1.4 10 ^3/uL (0.4-5.4); Mean Corpuscular Hemoglobin 27.3 pg (28.0-32.0); Mean Corpuscular Hgb Conc. 31.9 g/dL (32.0-36.0); Mean Corpuscular Volume 85.7 fL (80.0-100.0); Monocytes # (auto) 0.8 10 ^3/uL (0-1.3); Monocytes % (auto) 5.6 % (0.0-12.0); Neutrophils % (auto) 83.2 % (37.0-80.0); Nucleated Red Blood Cells % 0.1 %; Red Blood Cells 2.98 10^6/uL (4.5-5.90); Red Cell Distribution Width 14.9 % (11.8-14.3)
[2022-08-24 17:14] LABS: Albumin 2.7 g/dL (3.4-5.0); Calcium 8.2 mg/dL (8.5-10.1); Magnesium 2.5 mg/dL (1.6-2.6); Potassium 3.8 mmol/L (3.5-5.1)
[2022-08-24 17:17] LABS: BUN/Creatinine Ratio 15.4 (10.0-20.0); Bilirubin, Total 0.7 mg/dL (0.2-1.0); Total Protein 7.7 g/dL (6.4-8.2)
[2022-08-24] MEDS ORDERED: FUROSEMIDE 100 MG/10ML VIAL IV ONE (19:15)
[2022-08-24] MEDS ORDERED: dilTIAZem 25 MG/5 ML VIAL IV ONE ×2 (20:00→21:00)
[2022-08-24 20:56] LABS: Urine Bacteria FEW /hpf (None Seen); Urine Blood Negative /uL (Negative); Urine Hyaline Cast FEW /lpf (0 - 2); Urine Specific Gravity 1.009 (1.001-1.035); Urine WBC 113 /hpf (0 - 3); Urine WBC Clumps PRESENT /hpf (None Seen)
[2022-08-24] MEDS: dilTIAZem 125mg/125ml BAG KIT 100 ML IV SCH (23:00)
[2022-08-24] MEDS ORDERED: DEXTROSE (50%) 50ML SYRG IV PRN (23:15)
[2022-08-24] MEDS ORDERED: MORPHINE SULFATE INJ 2 MG/ml SYRG IV PRN (23:15)
[2022-08-24] MEDS ORDERED: DOCUSATE SOD 100 MG CAP PO PRN (23:15)
[2022-08-24] MEDS ORDERED: CARVEDILOL 3.125 MG TAB PO ONE (23:15)
[2022-08-24] MEDS ORDERED: ONDANSETRON HCL 4 MG/2 ML VIAL IV PRN (23:15)
[2022-08-24] MEDS ORDERED: cefTRIAXone 1GM/50ML D5W 50 ML IV ONE (23:15)
[2022-08-24] MEDS ORDERED: NITROGLYCERIN 0.4 MG SL TAB SL PRN (23:15)
[2022-08-24] MEDS ORDERED: IBUPROFEN 600 MG TAB PO PRN (23:15)
[2022-08-25] MEDS ORDERED: NITROGLYCERIN 0.4 MG SL TAB SL PRN (02:30)
[2022-08-25] MEDS: DOBUTamine 1000MCG/ML 250 ML IV SCH ×3 (05:26→19:23)
[2022-08-25] MEDS: SODIUM CHLOR 0.9% PF (SALINE LOCK) 10ML VIAL/SYR IV SCH ×3 (05:34→22:00)
[2022-08-25 06:07] LABS: Potassium 3.3 mmol/L (3.5-5.1)
[2022-08-25 06:13] LABS: Albumin 2.4 g/dL (3.4-5.0); BUN/Creatinine Ratio 16.4 (10.0-20.0); Bilirubin, Total 0.7 mg/dL (0.2-1.0); Calcium 8.1 mg/dL (8.5-10.1); Total Protein 7.3 g/dL (6.4-8.2)
[2022-08-25 06:16] LABS: Basophils # (auto) 0.1 10 ^3/uL (0-0.2); Eosinophils # (auto) 0 10 ^3/uL (0-0.8); Hemoglobin 7.4 g/dL (13.5-17.5); Lymphocytes # (auto) 1.4 10 ^3/uL (0.4-5.4); Monocytes # (auto) 0.7 10 ^3/uL (0-1.3); White Blood Cell 12.2 10^3/uL (4.4-10.8)
[2022-08-25 06:18] LABS: Basophils % (auto) 0.5 % (0.0-2.0); Eosinophils % (auto) 0.2 % (0.0-7.0); Hematocrit 22.1 % (41.0-53.0); Lymphocytes % (auto) 11.7 % (10.0-50.0); Mean Corpuscular Hemoglobin 28.1 pg (28.0-32.0); Mean Corpuscular Hgb Conc. 33.3 g/dL (32.0-36.0); Mean Corpuscular Volume 84.3 fL (80.0-100.0); Monocytes % (auto) 5.8 % (0.0-12.0); Neutrophils # (auto) 9.9 10 ^3/uL (1.6-8.6); Neutrophils % (auto) 81.8 % (37.0-80.0); Nucleated Red Blood Cells % 0.1 %; Red Blood Cells 2.62 10^6/uL (4.5-5.90); Red Cell Distribution Width 14.7 % (11.8-14.3)
[2022-08-25] MEDS: ACCU-CHEK COMFORT CURVE STRIP VI SCH ×4 (06:39→22:00)
[2022-08-25] MEDS: InsuLIN REG 1unit/0.01ml Soln (100units/ml) SC SCH ×4 (06:48→22:00)
[2022-08-25] MEDS: cefTRIAXone 1GM/50ML D5W 50 ML IV SCH (09:06)
[2022-08-25] MEDS: CARVEDILOL 12.5 MG TAB PO SCH ×2 (09:31→23:25)
[2022-08-25] MEDS: APIXABAN 5 MG TAB PO SCH ×2 (09:32→23:24)
[2022-08-25] MEDS: FAMOTIDINE (10MG/ML) 2ML VL IV SCH (09:32)
[2022-08-25] MEDS: FUROSEMIDE 40 MG/4 ML VIAL IV SCH (09:32)
[2022-08-25] MEDS: HYDROcodone-ACET 5/325MG TAB PO PRN (17:08)
[2022-08-25] MEDS: dilTIAZem 125mg/125ml BAG KIT 100 ML IV SCH (18:30)
[2022-08-25 21:35] LABS: Creatinine, Urine 74 mg/dL (30.0-125.0); Protein, Urine 62.6 mg/dL (0.0-11.9); Sodium Urine 12 mmol/L (40-220)
[2022-08-25 22:00] VITALS: BP 115/86
[2022-08-25 22:14] VITALS: BP 115/86
[2022-08-25] MEDS ORDERED: CHOL20002 PO (22:34)
[2022-08-25] MEDS ORDERED: FLUT50SP NAS (22:39)
[2022-08-25] MEDS ORDERED: ALBUTEROL SULF 2.5 MG/0.5ML(0.5%) NEB SOLN ONE (23:31)
[2022-08-25] MEDS: ALBUTEROL SULF 2.5 MG/0.5ML(0.5%) NEB SOLN NEB PRN (23:54)
[2022-08-26] VITALS (8 sets, daily range): BP systolic 100–130; BP diastolic 64–86
[2022-08-26] MEDS: InsuLIN REG 1unit/0.01ml Soln (100units/ml) SC SCH ×4 (05:49→22:00)
[2022-08-26] MEDS: SODIUM CHLOR 0.9% PF (SALINE LOCK) 10ML VIAL/SYR IV SCH ×3 (05:49→22:00)
[2022-08-26] MEDS: ACCU-CHEK COMFORT CURVE STRIP VI SCH ×4 (05:53→22:08)
[2022-08-26] MEDS: ALBUTEROL SULF 2.5 MG/0.5ML(0.5%) NEB SOLN NEB PRN ×2 (06:22→14:32)
[2022-08-26] MEDS: cefTRIAXone 1GM/50ML D5W 50 ML IV SCH (08:43)
[2022-08-26] MEDS: FAMOTIDINE (10MG/ML) 2ML VL IV SCH (10:27)
[2022-08-26] MEDS: APIXABAN 5 MG TAB PO SCH ×2 (10:27→21:53)
[2022-08-26] MEDS: CARVEDILOL 12.5 MG TAB PO SCH ×2 (10:28→21:53)
[2022-08-26] MEDS: FUROSEMIDE 40 MG/4 ML VIAL IV SCH ×2 (10:28→21:52)
[2022-08-26] MEDS ORDERED: FUROSEMIDE 40 MG/4 ML VIAL IV ONE (14:00)
[2022-08-26] MEDS: HYDROcodone-ACET 5/325MG TAB PO PRN (21:53)
[2022-08-27] VITALS (7 sets, daily range): BP systolic 87–120; BP diastolic 55–77
[2022-08-27] MEDS: SODIUM CHLOR 0.9% PF (SALINE LOCK) 10ML VIAL/SYR IV SCH ×3 (06:00→22:28)
[2022-08-27 06:14] LABS: Potassium 4.1 mmol/L (3.5-5.1)
[2022-08-27 06:22] LABS: Albumin 2.5 g/dL (3.4-5.0); BUN/Creatinine Ratio 17.3 (10.0-20.0); Bilirubin, Total 0.4 mg/dL (0.2-1.0); Calcium 7.9 mg/dL (8.5-10.1); Total Protein 7.4 g/dL (6.4-8.2)
[2022-08-27] MEDS: ACCU-CHEK COMFORT CURVE STRIP VI SCH ×4 (06:35→22:28)
[2022-08-27] MEDS: InsuLIN REG 1unit/0.01ml Soln (100units/ml) SC SCH ×4 (07:00→22:31)
[2022-08-27] MEDS ORDERED: ADENOSINE 102 MG in GIVE UN-DILUTED 0 ML IV STA (08:29)
[2022-08-27] MEDS: cefTRIAXone 1GM/50ML D5W 50 ML IV SCH (09:00)
[2022-08-27] MEDS: APIXABAN 5 MG TAB PO SCH ×2 (09:18→22:00)
[2022-08-27] MEDS: FUROSEMIDE 40 MG/4 ML VIAL IV SCH (09:19)
[2022-08-27] MEDS: CARVEDILOL 12.5 MG TAB PO SCH ×2 (09:20→22:25)
[2022-08-27] MEDS: AMIODARONE HCL 200 MG TAB PO SCH (09:23)
[2022-08-27] MEDS: FAMOTIDINE (10MG/ML) 2ML VL IV SCH (09:26)
[2022-08-27 10:13] LABS: Hepatitis B Surface Antibody Negative (Negative)
[2022-08-27 10:44] LABS: Hepatitis A Total Antibody Negative (Negative)
[2022-08-27 12:51] LABS: Hepatitis C Antibody Negative (Negative)
[2022-08-27] MEDS ORDERED: SODIUM BICARBONATE 650 MG TAB PO ONE (13:00)
[2022-08-27] MEDS: ALBUMIN 25% 100 ML IV SCH ×2 (14:07→20:58)
[2022-08-27 14:58] LABS: INR 1.4 (0.9-1.15); Partial Thromboplastin Time 34.2 sec (24.6-33.4)
[2022-08-27] MEDS ORDERED: GENTAMICIN SULFATE IR SCH (17:00)
[2022-08-27] MEDS ORDERED: STERILE WATER IR SCH (17:00)
[2022-08-27] MEDS: FUROSEMIDE INJECTION 100 MG in D5W 5% 100 ML IV SCH (17:09)
[2022-08-27] MEDS: SODIUM BICARBONATE 650 MG TAB PO SCH ×2 (18:12→22:25)
[2022-08-28] VITALS (11 sets, daily range): BP systolic 96–119; BP diastolic 61–78
[2022-08-28] MEDS: ALBUMIN 25% 100 ML IV SCH (04:32)
[2022-08-28 05:16] LABS: Alcohol, Urine < 3.0 mg/dL (0-10); Amphetamine Screen, Urine NEGATIVE (NEGATIVE); Barbiturate Scree,Urine NEGATIVE (NEGATIVE); Benzodiazephine Screen, Urine NEGATIVE (NEGATIVE); Cannabinoid Screen, Urine NEGATIVE (NEGATIVE); Cocaine Screen, Urine NEGATIVE (NEGATIVE); Opiate Scree,Urine NEGATIVE (NEGATIVE); Phencyclidine Screen, Urine NEGATIVE (NEGATIVE)
[2022-08-28] MEDS: SODIUM BICARBONATE 650 MG TAB PO SCH ×4 (06:00→21:19)
[2022-08-28 06:23] LABS: BUN/Creatinine Ratio 19.6 (10.0-20.0); Calcium 7.5 mg/dL (8.5-10.1)
[2022-08-28] MEDS: SODIUM CHLOR 0.9% PF (SALINE LOCK) 10ML VIAL/SYR IV SCH ×3 (06:24→21:23)
[2022-08-28] MEDS: ACCU-CHEK COMFORT CURVE STRIP VI SCH ×4 (06:27→22:37)
[2022-08-28] MEDS: InsuLIN REG 1unit/0.01ml Soln (100units/ml) SC SCH ×4 (07:03→22:37)
[2022-08-28] MEDS: APIXABAN 5 MG TAB PO SCH ×2 (08:16→21:19)
[2022-08-28] MEDS: cefTRIAXone 1GM/50ML D5W 50 ML IV SCH (08:30)
[2022-08-28] MEDS: FAMOTIDINE (10MG/ML) 2ML VL IV SCH (08:48)
[2022-08-28] MEDS: AMIODARONE HCL 200 MG TAB PO SCH (08:48)
[2022-08-28] MEDS: FUROSEMIDE INJECTION 100 MG in D5W 5% 100 ML IV SCH (09:00)
[2022-08-28] MEDS: CARVEDILOL 12.5 MG TAB PO SCH ×2 (09:00→21:05)
[2022-08-28] MEDS ORDERED: PATIENTS OWN MEDICATION IP SCH (10:00)
[2022-08-28] MEDS ORDERED: fentaNYL CITRATE 100 MCG/2 ML VL ONE (13:30)
[2022-08-28] MEDS ORDERED: MIDAZOLAM HCL 2MG/2ML 2ml VIAL (1mg/ml) ONE (13:30)
[2022-08-28] MEDS ORDERED: LIDOCAINE 2%HCL (LOCAL ANESTH.) INJ 20ML MDV ONE (13:38)
[2022-08-28] MEDS ORDERED: HEPARIN SODIUM (PORCINE) 5000 UNITS/ML 1ML VIAL ONE (13:42)
[2022-08-28] MEDS: MUPIROCIN 2% OINT 15gm or 22gm FOR MRSA NARES TOP SCH (21:19)
[2022-08-29] VITALS (7 sets, daily range): BP systolic 105–118; BP diastolic 61–76
[2022-08-29] MEDS: FUROSEMIDE INJECTION 100 MG in D5W 5% 100 ML IV SCH (05:02)
[2022-08-29 05:23] LABS: Basophils # (auto) 0.1 10 ^3/uL (0-0.2); Basophils % (auto) 0.8 % (0.0-2.0); Eosinophils # (auto) 0.1 10 ^3/uL (0-0.8); Eosinophils % (auto) 0.8 % (0.0-7.0); Hematocrit 26.2 % (41.0-53.0); Hemoglobin 8.5 g/dL (13.5-17.5); Lymphocytes # (auto) 1.4 10 ^3/uL (0.4-5.4); Lymphocytes % (auto) 11.1 % (10.0-50.0); Mean Corpuscular Hemoglobin 28.1 pg (28.0-32.0); Mean Corpuscular Hgb Conc. 32.6 g/dL (32.0-36.0); Mean Corpuscular Volume 86.1 fL (80.0-100.0); Monocytes % (auto) 7.9 % (0.0-12.0); Neutrophils # (auto) 9.9 10 ^3/uL (1.6-8.6); Neutrophils % (auto) 79.4 % (37.0-80.0); Nucleated Red Blood Cells % 0.2 %; Red Blood Cells 3.04 10^6/uL (4.5-5.90); Red Cell Distribution Width 15.3 % (11.8-14.3); White Blood Cell 12.4 10^3/uL (4.4-10.8)
[2022-08-29 05:44] LABS: BUN/Creatinine Ratio 19.9 (10.0-20.0); Calcium 7.6 mg/dL (8.5-10.1); Potassium 3.5 mmol/L (3.5-5.1)
[2022-08-29] MEDS: SODIUM CHLOR 0.9% PF (SALINE LOCK) 10ML VIAL/SYR IV SCH ×3 (06:28→21:36)
[2022-08-29] MEDS: SODIUM BICARBONATE 650 MG TAB PO SCH ×4 (06:28→21:24)
[2022-08-29] MEDS: ACCU-CHEK COMFORT CURVE STRIP VI SCH ×4 (06:28→21:36)
[2022-08-29] MEDS: InsuLIN REG 1unit/0.01ml Soln (100units/ml) SC SCH ×4 (06:49→21:35)
[2022-08-29] MEDS: APIXABAN 5 MG TAB PO SCH ×2 (09:05→21:25)
[2022-08-29] MEDS: cefTRIAXone 1GM/50ML D5W 50 ML IV SCH (09:05)
[2022-08-29] MEDS: AMIODARONE HCL 200 MG TAB PO SCH (09:07)
[2022-08-29] MEDS: CARVEDILOL 12.5 MG TAB PO SCH ×2 (09:20→21:25)
[2022-08-29] MEDS: MUPIROCIN 2% OINT 15gm or 22gm FOR MRSA NARES TOP SCH ×2 (09:20→21:36)
[2022-08-29] MEDS ORDERED: CEFEPIME 1GM/ 50ML 50 ML IV ONE (13:45)
[2022-08-29] MEDS ORDERED: LOPERAMIDE HCL 2 MG CAP/TAB PO PRN (16:45)
[2022-08-29] MEDS ORDERED: LOPERAMIDE HCL 2 MG CAP/TAB PO ONE (16:45)
[2022-08-30] MEDS ORDERED: FUROSEMIDE INJECTION 10 ML ONE (00:02)
[2022-08-30] MEDS: FUROSEMIDE INJECTION 100 MG in D5W 5% 100 ML IV SCH (00:08)
[2022-08-30 05:00] VITALS: BP 103/58
[2022-08-30 06:13] LABS: BUN/Creatinine Ratio 21.9 (10.0-20.0); Calcium 7.2 mg/dL (8.5-10.1)
[2022-08-30] MEDS: SODIUM CHLOR 0.9% PF (SALINE LOCK) 10ML VIAL/SYR IV SCH ×3 (06:25→22:00)
[2022-08-30] MEDS: SODIUM BICARBONATE 650 MG TAB PO SCH ×4 (06:27→22:42)
[2022-08-30] MEDS: InsuLIN REG 1unit/0.01ml Soln (100units/ml) SC SCH ×4 (06:28→22:38)
[2022-08-30] MEDS: ACCU-CHEK COMFORT CURVE STRIP VI SCH ×4 (06:29→22:00)
[2022-08-30] MEDS ORDERED: SODIUM CHL 0.9% 1000 ML BAG XX ONE (07:00)
[2022-08-30 08:00] VITALS: BP 110/77
[2022-08-30] MEDS ORDERED: POTASSIUM CHL 20 Meq TABLET PO ONE ×2 (08:15→14:00)
[2022-08-30 09:00] VITALS: BP 110/77
[2022-08-30] MEDS: CARVEDILOL 12.5 MG TAB PO SCH ×2 (10:00→22:44)
[2022-08-30] MEDS ORDERED: CEFEPIME 1GM/ 50ML 50 ML IV SCH (10:00)
[2022-08-30] MEDS: AMIODARONE HCL 200 MG TAB PO SCH (11:43)
[2022-08-30] MEDS: APIXABAN 5 MG TAB PO SCH ×2 (11:43→22:45)
[2022-08-30] MEDS: MUPIROCIN 2% OINT 15gm or 22gm FOR MRSA NARES TOP SCH ×2 (11:46→22:45)
[2022-08-30 12:30] VITALS: BP 93/45
[2022-08-30 17:15] VITALS: BP 98/71
[2022-08-30] MEDS ORDERED: EPOETIN ALFA-EPBX 4,000 UNIT/ML VIAL SC ONE (21:00)
[2022-08-30 22:00] VITALS: BP 103/67
[2022-08-31 05:00] VITALS: BP 102/73
[2022-08-31 05:54] LABS: % Iron Saturation 10.1 % (20-55)
[2022-08-31 05:56] LABS: Calcium 7.3 mg/dL (8.5-10.1); Potassium 3.4 mmol/L (3.5-5.1)
[2022-08-31] MEDS: SODIUM CHLOR 0.9% PF (SALINE LOCK) 10ML VIAL/SYR IV SCH ×2 (06:00→14:00)
[2022-08-31 06:02] LABS: Albumin 2.7 g/dL (3.4-5.0); BUN/Creatinine Ratio 20.6 (10.0-20.0); Bilirubin, Total 0.5 mg/dL (0.2-1.0); Total Protein 6.8 g/dL (6.4-8.2)
[2022-08-31 06:20] LABS: Basophils # (auto) 0.1 10 ^3/uL (0-0.2); Eosinophils # (auto) 0.1 10 ^3/uL (0-0.8); Hematocrit 23.6 % (41.0-53.0); Hemoglobin 7.8 g/dL (13.5-17.5); Lymphocytes # (auto) 1.5 10 ^3/uL (0.4-5.4); Monocytes # (auto) 1.2 10 ^3/uL (0-1.3); Nucleated Red Blood Cells % 0.1 %; White Blood Cell 14.6 10^3/uL (4.4-10.8)
[2022-08-31 06:22] LABS: Basophils % (auto) 0.5 % (0.0-2.0); Eosinophils % (auto) 0.7 % (0.0-7.0); Mean Corpuscular Hgb Conc. 32.9 g/dL (32.0-36.0); Mean Corpuscular Volume 85.1 fL (80.0-100.0); Monocytes % (auto) 8.1 % (0.0-12.0); Neutrophils # (auto) 11.7 10 ^3/uL (1.6-8.6); Neutrophils % (auto) 80.7 % (37.0-80.0); Red Blood Cells 2.77 10^6/uL (4.5-5.90); Red Cell Distribution Width 15.5 % (11.8-14.3)
[2022-08-31] MEDS: ACCU-CHEK COMFORT CURVE STRIP VI SCH ×3 (06:30→17:00)
[2022-08-31] MEDS: InsuLIN REG 1unit/0.01ml Soln (100units/ml) SC SCH ×3 (06:34→17:00)
[2022-08-31] MEDS: SODIUM BICARBONATE 650 MG TAB PO SCH ×3 (06:35→18:00)
[2022-08-31] MEDS: BUMETANIDE 1 MG TAB PO SCH ×2 (06:35→18:00)
[2022-08-31 09:00] VITALS: BP 111/77
[2022-08-31 09:53] VITALS: BP 103/71
[2022-08-31] MEDS: APIXABAN 5 MG TAB PO SCH (09:54)
[2022-08-31] MEDS: CARVEDILOL 12.5 MG TAB PO SCH (09:55)
[2022-08-31] MEDS: AMIODARONE HCL 200 MG TAB PO SCH (09:56)
[2022-08-31] MEDS: MUPIROCIN 2% OINT 15gm or 22gm FOR MRSA NARES TOP SCH (09:56)
[2022-08-31 13:00] VITALS: BP 94/66
[2022-08-31] MEDS ORDERED: AMIO200T33 PO (14:37)
[2022-08-31] MEDS ORDERED: CAR125T OR (14:37)
[2022-08-31] MEDS ORDERED: APIX5TAB PO (14:37)
[2022-08-31] MEDS ORDERED: BACDST PO (14:37)
[2022-08-31] MEDS ORDERED: BUMEX2MG PO (14:37)
[2022-08-31] MEDS ORDERED: BUME2TAB5 PO (14:39)
[2022-08-31] MEDS ORDERED: CEFEPIME 1GM/ 50ML 50 ML IV SCH (16:00)
[2022-08-31 16:19] VITALS: BP 94/59
== END 2022-08-31 18:05 | disposition home or self-care (01) | DRG 466 ==
LOC: EDBD 14:47 → ER 14:47 → TELE 23:08 → TELE-EAST 08-25 21:30
PROVIDERS: ADMIT Nurse Practitioner Family; ATTEND Internal Medicine Geriatric Medicine
PROC: 5A1D70Z Performance of Urinary Filtration, Intermittent, Less than 6 Hours Per Day (ICD-10-PCS; principal; 2022-08-25)
PROC: 0JH63XZ Insertion of Tunneled Vascular Access Device into Chest Subcutaneous Tissue and Fascia, Percutaneous Approach (ICD-10-PCS; 2022-08-28)
PROC: 02HV33Z Insertion of Infusion Device into Superior Vena Cava, Percutaneous Approach (ICD-10-PCS; 2022-08-28)
PROC: B5181ZA Fluoroscopy of Superior Vena Cava using Low Osmolar Contrast, Guidance (ICD-10-PCS; 2022-08-28)
PROC: B548ZZA Ultrasonography of Superior Vena Cava, Guidance (ICD-10-PCS; 2022-08-28)
DX: T83.511A Infection and inflammatory reaction due to indwelling urethral catheter, initial encounter (principal); N17.0 Acute kidney failure with tubular necrosis; I50.23 Acute on chronic systolic (congestive) heart failure; E87.20 Acidosis, unspecified; D63.1 Anemia in chronic kidney disease; I48.92 Unspecified atrial flutter; N13.8 Other obstructive and reflux uropathy; E11.22 Type 2 diabetes mellitus with diabetic chronic kidney disease; N18.5 Chronic kidney disease, stage 5; I13.2 Hypertensive heart and chronic kidney disease with heart failure and with stage 5 chronic kidney disease, or end stage renal disease; E11.65 Type 2 diabetes mellitus with hyperglycemia; E66.9 Obesity, unspecified; N39.0 Urinary tract infection, site not specified; N40.1 Benign prostatic hyperplasia with lower urinary tract symptoms; E78.5 Hyperlipidemia, unspecified; I48.91 Unspecified atrial fibrillation; Z79.01 Long term (current) use of anticoagulants; Z79.4 Long term (current) use of insulin; Z79.84 Long term (current) use of oral hypoglycemic drugs; Z79.899 Other long term (current) drug therapy; Z82.3 Family history of stroke; Z80.1 Family history of malignant neoplasm of trachea, bronchus and lung; Z85.118 Personal history of other malignant neoplasm of bronchus and lung; Z68.36 Body mass index [BMI] 36.0-36.9, adult
CPT/HCPCS: 36415; 36558; 36600; 71045; 76000; 76705; 76775; 76942; 77001; 78452; 80048; 80053; 80307; 81001; 82306; 82570; 82728; 82805; 82962; 83540; 83550; 83735; 83880; 83970; 84100; 84156; 84300; 84484; 85025; 85610; 85730; 86704; 86706; 86708; 86803; 87081; 87086; 87340; 90935; 93005; 93017; 94640; 96365; 96375; 97163; 99152; C1750; C1894; G0378; J0153; J0696; J1580; J1642; J1815; J2250; J3490; J7060; P9047

== ENCOUNTER 2022-09-11 22:35 | Inpatient (IN) | payer MEDICAID ==
[~2022-09-11] VITALS: Ht 182.9 cm; Wt 119.7 kg
[~2022-09-11 22:35] MED LIST changes: +AMIO200T33 PO; +APIX5TAB PO; +BACDST PO; +BUME2TAB5 PO; +CAR125T OR; -CEPH-510 PO; +CHOL20002 PO; +FLUT50SP NAS; -METO25TA93 PO
[2022-09-11 23:43] LABS: Basophils # (auto) 0.1 10 ^3/uL (0-0.2); Basophils % (auto) 0.8 % (0.0-2.0); Eosinophils # (auto) 0.1 10 ^3/uL (0-0.8); Eosinophils % (auto) 0.9 % (0.0-7.0); Hematocrit 26.8 % (41.0-53.0); Hemoglobin 8.6 g/dL (13.5-17.5); Mean Corpuscular Hemoglobin 27.9 pg (28.0-32.0); Mean Corpuscular Hgb Conc. 32.3 g/dL (32.0-36.0); Mean Corpuscular Volume 86.4 fL (80.0-100.0); Monocytes # (auto) 0.7 10 ^3/uL (0-1.3); Monocytes % (auto) 6.6 % (0.0-12.0); Neutrophils # (auto) 8.4 10 ^3/uL (1.6-8.6); Neutrophils % (auto) 81.7 % (37.0-80.0); Nucleated Red Blood Cells % 0.1 %; Red Cell Distribution Width 17.7 % (11.8-14.3); White Blood Cell 10.3 10^3/uL (4.4-10.8)
[2022-09-11 23:59] LABS: INR 1.14 (0.9-1.15); Partial Thromboplastin Time 29.2 sec (24.6-33.4)
[2022-09-12 00:05] LABS: Calcium 8.2 mg/dL (8.5-10.1); Potassium 3.9 mmol/L (3.5-5.1)
[2022-09-12 00:08] LABS: Albumin 2.9 g/dL (3.4-5.0); BUN/Creatinine Ratio 19.4 (10.0-20.0)
[2022-09-12 00:14] LABS: Bilirubin, Total 1.1 mg/dL (0.2-1.0); Total Protein 7.2 g/dL (6.4-8.2)
[2022-09-12] MEDS ORDERED: ALBUTEROL SULF 2.5 MG/0.5ML(0.5%) NEB SOLN NEB ONE ×2 (04:00→11:00)
[2022-09-12] MEDS ORDERED: FUROSEMIDE 20 MG/2 ML VIAL IV ONE (06:00)
[2022-09-12] MEDS ORDERED: NITROGLYCERIN 0.4 MG SL TAB SL PRN (07:00)
[2022-09-12] MEDS ORDERED: ACETAMINOPHEN 325 MG TAB PO PRN (07:00)
[2022-09-12] MEDS ORDERED: DEXTROSE (50%) 50ML SYRG IV PRN (07:00)
[2022-09-12] MEDS ORDERED: ONDANSETRON HCL 4 MG/2 ML VIAL IV PRN (07:00)
[2022-09-12] MEDS ORDERED: MORPHINE SULFATE INJ 2 MG/ml SYRG IV PRN (07:00)
[2022-09-12] MEDS: ACCU-CHEK COMFORT CURVE STRIP VI SCH ×2 (09:24→11:57)
[2022-09-12] MEDS: InsuLIN REG 1unit/0.01ml Soln (100units/ml) SC SCH ×2 (09:24→12:00)
[2022-09-12] MEDS: SEVELAMER 800 MG TAB PO SCH ×3 (09:27→18:00)
[2022-09-12] MEDS: APIXABAN 5 MG TAB PO SCH (09:27)
[2022-09-12] MEDS: PANTOPRAZOLE 40 MG TAB PO SCH (10:07)
[2022-09-12] MEDS: CARVEDILOL 12.5 MG TAB PO SCH (10:07)
[2022-09-12] MEDS: AMIODARONE HCL 200 MG TAB PO SCH (10:07)
[2022-09-12] MEDS ORDERED: IPRATROPIUM BROM 0.5 MG/2.5ML INH SOL NEB ONE (11:00)
[2022-09-12] MEDS ORDERED: FUROSEMIDE 40 MG/4 ML VIAL IV SCH (18:00)
[2022-09-12] MEDS: TAMSULOSIN HYDROCHLORIDE 0.4 MG CAP PO SCH (18:00)
[2022-09-12 23:05] VITALS: BP 118/73
[2022-09-13] VITALS (7 sets, daily range): BP systolic 93–148; BP diastolic 61–79
[2022-09-13] MEDS: CARVEDILOL 12.5 MG TAB PO SCH ×3 (00:30→22:33)
[2022-09-13] MEDS: APIXABAN 5 MG TAB PO SCH ×3 (00:30→22:33)
[2022-09-13] MEDS: ACCU-CHEK COMFORT CURVE STRIP VI SCH ×5 (00:33→22:35)
[2022-09-13] MEDS: InsuLIN REG 1unit/0.01ml Soln (100units/ml) SC SCH ×5 (01:17→22:40)
[2022-09-13] MEDS: FUROSEMIDE 40 MG/4 ML VIAL IV SCH ×2 (04:57→18:10)
[2022-09-13 06:42] LABS: Basophils # (auto) 0.1 10 ^3/uL (0-0.2); Basophils % (auto) 0.7 % (0.0-2.0); Eosinophils # (auto) 0.1 10 ^3/uL (0-0.8); Hemoglobin 7.9 g/dL (13.5-17.5); Lymphocytes # (auto) 0.7 10 ^3/uL (0.4-5.4); Monocytes # (auto) 0.6 10 ^3/uL (0-1.3)
[2022-09-13 06:44] LABS: Eosinophils % (auto) 0.8 % (0.0-7.0); Hematocrit 24.2 % (41.0-53.0); Mean Corpuscular Hemoglobin 27.9 pg (28.0-32.0); Mean Corpuscular Hgb Conc. 32.5 g/dL (32.0-36.0); Mean Corpuscular Volume 85.9 fL (80.0-100.0); Neutrophils # (auto) 6.2 10 ^3/uL (1.6-8.6); Neutrophils % (auto) 81.5 % (37.0-80.0); Red Blood Cells 2.81 10^6/uL (4.5-5.90); White Blood Cell 7.7 10^3/uL (4.4-10.8)
[2022-09-13 06:47] LABS: Potassium 3.9 mmol/L (3.5-5.1)
[2022-09-13 06:55] LABS: Albumin 2.7 g/dL (3.4-5.0); BUN/Creatinine Ratio 19.4 (10.0-20.0); Bilirubin, Total 0.8 mg/dL (0.2-1.0); Calcium 8.2 mg/dL (8.5-10.1); Total Protein 7.3 g/dL (6.4-8.2)
[2022-09-13] MEDS: SEVELAMER 800 MG TAB PO SCH ×3 (09:35→18:10)
[2022-09-13] MEDS: PANTOPRAZOLE 40 MG TAB PO SCH (09:38)
[2022-09-13] MEDS: AMIODARONE HCL 200 MG TAB PO SCH (09:39)
[2022-09-13] MEDS ORDERED: FURO40TA4 PO (09:46)
[2022-09-13] MEDS ORDERED: CARV12.544 PO (09:46)
[2022-09-13] MEDS ORDERED: TAMS0.4C36 PO (09:46)
[2022-09-13] MEDS ORDERED: AMIO200T13 PO (09:46)
[2022-09-13] MEDS ORDERED: SEVE800T10 PO (09:46)
[2022-09-13] MEDS ORDERED: SODIUM FERR GLUC 62.5MG/5ML 125 MG in SODIUM CHL 0.9% 100 ML IV ONE (17:15)
[2022-09-13] MEDS: TAMSULOSIN HYDROCHLORIDE 0.4 MG CAP PO SCH (18:10)
[2022-09-13] MEDS ORDERED: metOLazone 5 MG TAB PO ONE (20:30)
[2022-09-13] MEDS ORDERED: METOPROLOL TARTRATE 25 MG TAB PO ONE (20:45)
[2022-09-13] MEDS ORDERED: EPOETIN ALFA-EPBX 4,000 UNIT/ML VIAL SC ONE (21:00)
[2022-09-13] MEDS ORDERED: MELATONIN 5 MG TAB PO ONE (22:00)
[2022-09-13] MEDS ORDERED: AMIODARONE HCL 200 MG TAB PO ONE (23:30)
[2022-09-13] MEDS ORDERED: AMIODARONE 450mg/250ml AE 250 ML IV SCH (23:45)
[2022-09-13] MEDS ORDERED: METOPROLOL TARTRATE 1MG/1ML-5ML VIAL IV ONE (23:45)
[2022-09-14] VITALS (11 sets, daily range): BP systolic 84–120; BP diastolic 36–92
[2022-09-14] MEDS ORDERED: MIDODRINE HCL 10 MG TAB ONE (00:44)
[2022-09-14] MEDS ORDERED: dilTIAZem 25 MG/5 ML VIAL IV ONE (00:45)
[2022-09-14] MEDS ORDERED: MIDODRINE HCL 10 MG TAB PO ONE (00:45)
[2022-09-14] MEDS: FUROSEMIDE 40 MG/4 ML VIAL IV SCH ×2 (06:55→17:58)
[2022-09-14] MEDS: ACCU-CHEK COMFORT CURVE STRIP VI SCH ×4 (07:03→22:30)
[2022-09-14] MEDS: InsuLIN REG 1unit/0.01ml Soln (100units/ml) SC SCH ×4 (07:03→22:37)
[2022-09-14] MEDS ORDERED: AMIODARONE 450mg/250ml AE 250 ML IV SCH (09:15)
[2022-09-14 09:45] LABS: BUN/Creatinine Ratio 15.2 (10.0-20.0); Calcium 7.8 mg/dL (8.5-10.1); Potassium 3.7 mmol/L (3.5-5.1)
[2022-09-14] MEDS: SEVELAMER 800 MG TAB PO SCH ×3 (09:53→17:58)
[2022-09-14] MEDS: METOPROLOL SUCCINATE XL 50 MG TAB PO SCH (09:54)
[2022-09-14] MEDS: CARVEDILOL 12.5 MG TAB PO SCH ×2 (09:54→22:29)
[2022-09-14] MEDS: PANTOPRAZOLE 40 MG TAB PO SCH (09:54)
[2022-09-14] MEDS: APIXABAN 5 MG TAB PO SCH ×2 (09:54→22:28)
[2022-09-14] MEDS: metOLazone 5 MG TAB PO SCH (10:00)
[2022-09-14] MEDS: SODIUM FERR GLUC 62.5MG/5ML 125 MG in SODIUM CHL 0.9% 100 ML IV SCH (12:52)
[2022-09-14] MEDS: AMIODARONE 450mg/250ml AE 250 ML IV SCH (15:15)
[2022-09-14] MEDS: LORazepam 2MG/ML-1ML VIAL IV PRN (16:03)
[2022-09-14] MEDS: TAMSULOSIN HYDROCHLORIDE 0.4 MG CAP PO SCH (17:58)
[2022-09-15] MEDS: AMIODARONE 450mg/250ml AE 250 ML IV SCH ×2 (03:03→21:15)
[2022-09-15 05:00] VITALS: BP 92/65
[2022-09-15] MEDS: ACCU-CHEK COMFORT CURVE STRIP VI SCH ×4 (06:29→21:37)
[2022-09-15] MEDS: FUROSEMIDE 40 MG/4 ML VIAL IV SCH ×2 (06:29→17:21)
[2022-09-15] MEDS: InsuLIN REG 1unit/0.01ml Soln (100units/ml) SC SCH ×4 (06:31→21:40)
[2022-09-15 09:00] VITALS: BP 112/77
[2022-09-15] MEDS: METOPROLOL SUCCINATE XL 50 MG TAB PO SCH (10:00)
[2022-09-15] MEDS: CARVEDILOL 12.5 MG TAB PO SCH ×2 (10:00→21:37)
[2022-09-15] MEDS: SEVELAMER 800 MG TAB PO SCH ×3 (10:06→17:21)
[2022-09-15] MEDS: APIXABAN 5 MG TAB PO SCH ×2 (10:06→21:37)
[2022-09-15] MEDS: metOLazone 5 MG TAB PO SCH (10:06)
[2022-09-15] MEDS: PANTOPRAZOLE 40 MG TAB PO SCH (10:06)
[2022-09-15] MEDS: SODIUM FERR GLUC 62.5MG/5ML 125 MG in SODIUM CHL 0.9% 100 ML IV SCH (12:56)
[2022-09-15 13:00] VITALS: BP 125/85
[2022-09-15] MEDS ORDERED: MAGNESIUM SULFATE 1GM/100ML 100 ML IV ONE (13:00)
[2022-09-15 15:53] LABS: Magnesium 2.2 mg/dL (1.6-2.6)
[2022-09-15 17:00] VITALS: BP 114/56
[2022-09-15] MEDS: TAMSULOSIN HYDROCHLORIDE 0.4 MG CAP PO SCH (17:21)
[2022-09-15 19:00] VITALS: BP 112/56
[2022-09-15] MEDS: IPRATROPIUM BROM 0.5 MG/2.5ML INH SOL NEB SCH (19:01)
[2022-09-15] MEDS: ALBUTEROL SULF 2.5 MG/0.5ML(0.5%) NEB SOLN NEB SCH (19:01)
[2022-09-15 22:00] VITALS: BP 120/81
[2022-09-16] MEDS: IPRATROPIUM BROM 0.5 MG/2.5ML INH SOL NEB SCH ×5 (00:01→23:45)
[2022-09-16] MEDS: ALBUTEROL SULF 2.5 MG/0.5ML(0.5%) NEB SOLN NEB SCH ×5 (00:01→23:45)
[2022-09-16 05:00] VITALS: BP 121/84
[2022-09-16] MEDS: FUROSEMIDE 40 MG/4 ML VIAL IV SCH ×2 (06:00→17:28)
[2022-09-16] MEDS: ACCU-CHEK COMFORT CURVE STRIP VI SCH ×4 (06:02→21:30)
[2022-09-16 06:09] LABS: Basophils # (auto) 0 10 ^3/uL (0-0.2); Eosinophils # (auto) 0 10 ^3/uL (0-0.8); Eosinophils % (auto) 0.5 % (0.0-7.0); Hemoglobin 8.3 g/dL (13.5-17.5); Monocytes # (auto) 0.5 10 ^3/uL (0-1.3); Monocytes % (auto) 6.4 % (0.0-12.0); Nucleated Red Blood Cells % 0.1 %
[2022-09-16 06:11] LABS: Basophils % (auto) 0.4 % (0.0-2.0); Hematocrit 25.5 % (41.0-53.0); Lymphocytes # (auto) 1.2 10 ^3/uL (0.4-5.4); Lymphocytes % (auto) 14.4 % (10.0-50.0); Mean Corpuscular Hemoglobin 27.2 pg (28.0-32.0); Mean Corpuscular Hgb Conc. 32.6 g/dL (32.0-36.0); Mean Corpuscular Volume 83.6 fL (80.0-100.0); Neutrophils # (auto) 6.5 10 ^3/uL (1.6-8.6); Neutrophils % (auto) 78.3 % (37.0-80.0); Red Blood Cells 3.05 10^6/uL (4.5-5.90); White Blood Cell 8.4 10^3/uL (4.4-10.8)
[2022-09-16] MEDS: AMIODARONE 450mg/250ml AE 250 ML IV SCH (06:19)
[2022-09-16] MEDS: InsuLIN REG 1unit/0.01ml Soln (100units/ml) SC SCH ×4 (06:20→21:31)
[2022-09-16 06:43] LABS: Potassium 3.4 mmol/L (3.5-5.1)
[2022-09-16 06:50] LABS: BUN/Creatinine Ratio 20.4 (10.0-20.0); Bilirubin, Total 0.6 mg/dL (0.2-1.0); Calcium 8.3 mg/dL (8.5-10.1); Magnesium 2.4 mg/dL (1.6-2.6); Total Protein 7.7 g/dL (6.4-8.2)
[2022-09-16] MEDS ORDERED: PIPERACILLIN-TAZOB 2.25GM 0.75 GM in D5W 5% 50 ML IV SCH (08:15)
[2022-09-16] MEDS: SEVELAMER 800 MG TAB PO SCH ×3 (08:32→18:22)
[2022-09-16] MEDS ORDERED: PIPERACILLIN-TAZOB 2.25GM 0.75 GM in D5W 5% 50 ML IV PRN (08:45)
[2022-09-16 09:00] VITALS: BP 120/60
[2022-09-16] MEDS: CARVEDILOL 12.5 MG TAB PO SCH ×2 (09:53→22:00)
[2022-09-16] MEDS: METOPROLOL SUCCINATE XL 50 MG TAB PO SCH (09:53)
[2022-09-16] MEDS: metOLazone 5 MG TAB PO SCH (09:54)
[2022-09-16] MEDS: APIXABAN 5 MG TAB PO SCH ×2 (10:00→23:09)
[2022-09-16] MEDS: PANTOPRAZOLE 40 MG TAB PO SCH (10:00)
[2022-09-16] MEDS: PIPERACILLIN-TAZOB 2.25GM 50 ML IV SCH ×2 (10:01→21:13)
[2022-09-16] MEDS: AMIODARONE HCL 200 MG TAB PO SCH ×2 (11:15→23:08)
[2022-09-16] MEDS: SODIUM FERR GLUC 62.5MG/5ML 125 MG in SODIUM CHL 0.9% 100 ML IV SCH (12:00)
[2022-09-16] MEDS: ACETYLCYSTEINE 20%(200MG/ML) SOL 4ML NEB SCH ×2 (13:18→23:46)
[2022-09-16] MEDS: TAMSULOSIN HYDROCHLORIDE 0.4 MG CAP PO SCH (18:22)
[2022-09-16] MEDS ORDERED: EPOETIN ALFA-EPBX 4,000 UNIT/ML VIAL SC ONE ×2 (21:00)
[2022-09-16 22:00] VITALS: BP 128/82
[2022-09-17] VITALS (9 sets, daily range): BP systolic 116–142; BP diastolic 62–95
[2022-09-17] MEDS: FUROSEMIDE 40 MG/4 ML VIAL IV SCH ×2 (06:00→17:54)
[2022-09-17] MEDS: InsuLIN REG 1unit/0.01ml Soln (100units/ml) SC SCH ×4 (06:29→21:24)
[2022-09-17] MEDS: ACCU-CHEK COMFORT CURVE STRIP VI SCH ×4 (06:29→21:40)
[2022-09-17] MEDS: ALBUTEROL SULF 2.5 MG/0.5ML(0.5%) NEB SOLN NEB SCH ×4 (06:33→22:43)
[2022-09-17] MEDS: IPRATROPIUM BROM 0.5 MG/2.5ML INH SOL NEB SCH ×4 (06:33→22:43)
[2022-09-17] MEDS: ACETYLCYSTEINE 20%(200MG/ML) SOL 4ML NEB SCH ×3 (06:33→22:43)
[2022-09-17] MEDS ORDERED: IODIXANOL 320MG/ML 100ML BTL IV ONE ×2 (07:42→08:11)
[2022-09-17] MEDS ORDERED: LIDOCAINE 2%HCL (LOCAL ANESTH.) INJ 20ML MDV ONE (07:42)
[2022-09-17] MEDS: SEVELAMER 800 MG TAB PO SCH ×3 (08:00→17:49)
[2022-09-17] MEDS ORDERED: VERAPAMIL 2.5MG/ML INJ 2ML VIAL IV ONE (08:04)
[2022-09-17] MEDS ORDERED: HEPARIN SODIUM (PORCINE) 5000 UNITS/ML 1ML VIAL ONE (08:04)
[2022-09-17] MEDS ORDERED: fentaNYL CITRATE 100 MCG/2 ML VL ONE (08:05)
[2022-09-17] MEDS ORDERED: MIDAZOLAM HCL 2MG/2ML 2ml VIAL (1mg/ml) ONE (08:05)
[2022-09-17] MEDS ORDERED: ATROPINE SULF 1 MG/10ml SYR ONE (08:16)
[2022-09-17] MEDS ORDERED: EPINEPHrine HCL 1 MG/10 ML SYRG ONE (08:16)
[2022-09-17] MEDS ORDERED: SODIUM CHL 0.9% 0 ML ONE (08:18)
[2022-09-17] MEDS ORDERED: ANGIOMAX 250 MG VIAL IV ONE (08:18)
[2022-09-17] MEDS: METOPROLOL SUCCINATE XL 50 MG TAB PO SCH (10:00)
[2022-09-17] MEDS: APIXABAN 5 MG TAB PO SCH ×2 (10:00→21:27)
[2022-09-17] MEDS: AMIODARONE HCL 200 MG TAB PO SCH ×2 (10:43→21:26)
[2022-09-17] MEDS: PIPERACILLIN-TAZOB 2.25GM 50 ML IV SCH ×2 (10:43→21:27)
[2022-09-17] MEDS: PANTOPRAZOLE 40 MG TAB PO SCH (10:44)
[2022-09-17] MEDS: CARVEDILOL 12.5 MG TAB PO SCH ×2 (10:46→21:36)
[2022-09-17] MEDS: metOLazone 5 MG TAB PO SCH (11:48)
[2022-09-17] MEDS: SODIUM FERR GLUC 62.5MG/5ML 125 MG in SODIUM CHL 0.9% 100 ML IV SCH (13:18)
[2022-09-17] MEDS: TAMSULOSIN HYDROCHLORIDE 0.4 MG CAP PO SCH (17:53)
[2022-09-17] MEDS ORDERED: AMIODARONE HCL 150 MG in D5W 5% 100 ML IV ONE ×2 (23:15→23:45)
[2022-09-17] MEDS ORDERED: AMIODARONE HCL (50 MG/ ML) 3 ML VIAL IV ONE (23:40)
[2022-09-18] VITALS (14 sets, daily range): BP systolic 89–128; BP diastolic 63–80
[2022-09-18] MEDS ORDERED: AMIODARONE BOLUS KIT 100 ML IV ONE (03:12)
[2022-09-18] MEDS ORDERED: AMIODARONE HCL 150 MG in D5W 5% 100 ML IV ONE (03:15)
[2022-09-18] MEDS ORDERED: AMIODARONE 450mg/250ml AE 250 ML IV SCH ×2 (03:15→09:15)
[2022-09-18] MEDS: ALBUTEROL SULF 2.5 MG/0.5ML(0.5%) NEB SOLN NEB SCH ×4 (06:00→23:33)
[2022-09-18] MEDS: ACETYLCYSTEINE 20%(200MG/ML) SOL 4ML NEB SCH ×3 (06:00→23:33)
[2022-09-18] MEDS: IPRATROPIUM BROM 0.5 MG/2.5ML INH SOL NEB SCH ×4 (06:00→23:33)
[2022-09-18] MEDS: InsuLIN REG 1unit/0.01ml Soln (100units/ml) SC SCH ×4 (06:57→23:00)
[2022-09-18] MEDS: ACCU-CHEK COMFORT CURVE STRIP VI SCH ×4 (06:58→22:51)
[2022-09-18] MEDS: FUROSEMIDE 40 MG/4 ML VIAL IV SCH ×2 (07:05→18:00)
[2022-09-18] MEDS: SEVELAMER 800 MG TAB PO SCH ×3 (09:17→18:00)
[2022-09-18] MEDS: PIPERACILLIN-TAZOB 2.25GM 50 ML IV SCH ×2 (09:19→22:51)
[2022-09-18] MEDS: APIXABAN 5 MG TAB PO SCH (09:27)
[2022-09-18] MEDS: CARVEDILOL 12.5 MG TAB PO SCH ×2 (09:28→22:00)
[2022-09-18] MEDS: METOPROLOL SUCCINATE XL 50 MG TAB PO SCH (09:28)
[2022-09-18] MEDS: AMIODARONE HCL 200 MG TAB PO SCH ×2 (09:28→22:51)
[2022-09-18] MEDS: LORazepam 2MG/ML-1ML VIAL IV PRN (09:30)
[2022-09-18] MEDS ORDERED: POTASSIUM CHL 20 Meq TABLET PO ONE (11:15)
[2022-09-18] MEDS: metOLazone 5 MG TAB PO SCH (11:37)
[2022-09-18] MEDS: SODIUM FERR GLUC 62.5MG/5ML 125 MG in SODIUM CHL 0.9% 100 ML IV SCH (13:15)
[2022-09-18 13:40] LABS: Alcohol, Urine < 3.0 mg/dL (0-10); Amphetamine Screen, Urine POSITIVE (NEGATIVE); Barbiturate Scree,Urine NEGATIVE (NEGATIVE); Benzodiazephine Screen, Urine NEGATIVE (NEGATIVE); Cannabinoid Screen, Urine NEGATIVE (NEGATIVE); Cocaine Screen, Urine NEGATIVE (NEGATIVE)
[2022-09-18 13:48] LABS: Opiate Scree,Urine NEGATIVE (NEGATIVE); Phencyclidine Screen, Urine NEGATIVE (NEGATIVE)
[2022-09-18] MEDS: TAMSULOSIN HYDROCHLORIDE 0.4 MG CAP PO SCH (18:00)
[2022-09-19] MEDS: LORazepam 2MG/ML-1ML VIAL IV PRN ×2 (00:15→18:17)
[2022-09-19 05:02] VITALS: BP 108/69
[2022-09-19] MEDS: FUROSEMIDE 40 MG/4 ML VIAL IV SCH ×2 (06:09→17:13)
[2022-09-19] MEDS: InsuLIN REG 1unit/0.01ml Soln (100units/ml) SC SCH ×4 (06:09→21:32)
[2022-09-19] MEDS: ACCU-CHEK COMFORT CURVE STRIP VI SCH ×4 (06:09→21:39)
[2022-09-19 06:46] LABS: Basophils # (auto) 0 10 ^3/uL (0-0.2); Basophils % (auto) 0.4 % (0.0-2.0); Eosinophils # (auto) 0 10 ^3/uL (0-0.8); Eosinophils % (auto) 0.5 % (0.0-7.0); Hematocrit 28.7 % (41.0-53.0); Hemoglobin 9.5 g/dL (13.5-17.5); Lymphocytes # (auto) 1.1 10 ^3/uL (0.4-5.4); Lymphocytes % (auto) 11.8 % (10.0-50.0); Mean Corpuscular Hemoglobin 28.3 pg (28.0-32.0); Mean Corpuscular Volume 85.9 fL (80.0-100.0); Monocytes # (auto) 0.7 10 ^3/uL (0-1.3); Monocytes % (auto) 7.2 % (0.0-12.0); Neutrophils # (auto) 7.4 10 ^3/uL (1.6-8.6); Neutrophils % (auto) 80.1 % (37.0-80.0); Red Blood Cells 3.34 10^6/uL (4.5-5.90); Red Cell Distribution Width 17.7 % (11.8-14.3); White Blood Cell 9.2 10^3/uL (4.4-10.8)
[2022-09-19 06:52] LABS: Albumin 2.5 g/dL (3.4-5.0); Calcium 8.1 mg/dL (8.5-10.1); Magnesium 2.2 mg/dL (1.6-2.6); Potassium 3.2 mmol/L (3.5-5.1)
[2022-09-19 06:55] LABS: BUN/Creatinine Ratio 15.4 (10.0-20.0); Bilirubin, Total 0.6 mg/dL (0.2-1.0); Total Protein 7.1 g/dL (6.4-8.2)
[2022-09-19] MEDS: ACETYLCYSTEINE 20%(200MG/ML) SOL 4ML NEB SCH ×3 (07:05→22:00)
[2022-09-19] MEDS: IPRATROPIUM BROM 0.5 MG/2.5ML INH SOL NEB SCH ×3 (07:05→19:28)
[2022-09-19] MEDS: ALBUTEROL SULF 2.5 MG/0.5ML(0.5%) NEB SOLN NEB SCH ×3 (07:05→19:28)
[2022-09-19 08:49] VITALS: BP 118/59
[2022-09-19 08:55] LABS: INR 1.23 (0.9-1.15); Partial Thromboplastin Time 28.1 SEC (24.5-34.5)
[2022-09-19] MEDS: AMIODARONE HCL 200 MG TAB PO SCH ×2 (09:14→21:39)
[2022-09-19] MEDS: metOLazone 5 MG TAB PO SCH (09:14)
[2022-09-19] MEDS: PIPERACILLIN-TAZOB 2.25GM 50 ML IV SCH ×2 (09:14→23:46)
[2022-09-19] MEDS: SEVELAMER 800 MG TAB PO SCH ×3 (09:15→17:13)
[2022-09-19] MEDS ORDERED: POTASSIUM CHL 20 Meq TABLET PO ONE (10:00)
[2022-09-19] MEDS: METOPROLOL SUCCINATE XL 50 MG TAB PO SCH (10:00)
[2022-09-19] MEDS: CARVEDILOL 12.5 MG TAB PO SCH ×2 (10:00→21:39)
[2022-09-19] MEDS ORDERED: ALBUMIN 25% 50 ML IV ONE (12:15)
[2022-09-19 13:00] VITALS: BP 99/60
[2022-09-19] MEDS: SODIUM FERR GLUC 62.5MG/5ML 125 MG in SODIUM CHL 0.9% 100 ML IV SCH (13:15)
[2022-09-19 16:56] VITALS: BP 122/84
[2022-09-19] MEDS: TAMSULOSIN HYDROCHLORIDE 0.4 MG CAP PO SCH (17:13)
[2022-09-19] MEDS: POTASSIUM CHL 20MEQ/100ML 100 ML IV SCH ×2 (19:03→21:39)
[2022-09-19] MEDS ORDERED: SODIUM CHLORIDE 0.9% 1,000 ML IV ONE (21:00)
[2022-09-19 21:44] VITALS: BP 107/78
[2022-09-20] MEDS: LORazepam 2MG/ML-1ML VIAL IV PRN (01:08)
[2022-09-20 05:00] VITALS: BP 108/68
[2022-09-20] MEDS: ACETYLCYSTEINE 20%(200MG/ML) SOL 4ML NEB SCH ×3 (06:00→18:37)
[2022-09-20] MEDS: ALBUTEROL SULF 2.5 MG/0.5ML(0.5%) NEB SOLN NEB SCH ×5 (06:00→18:36)
[2022-09-20] MEDS: IPRATROPIUM BROM 0.5 MG/2.5ML INH SOL NEB SCH ×5 (06:00→18:36)
[2022-09-20] MEDS: ACCU-CHEK COMFORT CURVE STRIP VI SCH ×4 (06:13→21:44)
[2022-09-20] MEDS: InsuLIN REG 1unit/0.01ml Soln (100units/ml) SC SCH ×4 (06:14→21:44)
[2022-09-20 06:18] LABS: Basophils # (auto) 0.1 10 ^3/uL (0-0.2); Basophils % (auto) 0.5 % (0.0-2.0); Eosinophils # (auto) 0.1 10 ^3/uL (0-0.8); Eosinophils % (auto) 1.1 % (0.0-7.0); Hematocrit 27.2 % (41.0-53.0); Hemoglobin 8.9 g/dL (13.5-17.5); Lymphocytes # (auto) 1.2 10 ^3/uL (0.4-5.4); Lymphocytes % (auto) 10.9 % (10.0-50.0); Mean Corpuscular Hemoglobin 27.9 pg (28.0-32.0); Mean Corpuscular Hgb Conc. 32.8 g/dL (32.0-36.0); Mean Corpuscular Volume 85.2 fL (80.0-100.0); Monocytes % (auto) 8.9 % (0.0-12.0); Neutrophils # (auto) 8.7 10 ^3/uL (1.6-8.6); Neutrophils % (auto) 78.6 % (37.0-80.0); Nucleated Red Blood Cells % 0.2 %; Red Blood Cells 3.19 10^6/uL (4.5-5.90); Red Cell Distribution Width 17.8 % (11.8-14.3); White Blood Cell 11.1 10^3/uL (4.4-10.8)
[2022-09-20 06:40] LABS: Potassium 3.3 mmol/L (3.5-5.1)
[2022-09-20 06:46] LABS: Albumin 2.6 g/dL (3.4-5.0); BUN/Creatinine Ratio 15.8 (10.0-20.0); Bilirubin, Total 0.6 mg/dL (0.2-1.0); Total Protein 7.3 g/dL (6.4-8.2)
[2022-09-20] MEDS: METOPROLOL SUCCINATE XL 50 MG TAB PO SCH (10:00)
[2022-09-20] MEDS: PIPERACILLIN-TAZOB 2.25GM 50 ML IV SCH ×2 (11:17→21:27)
[2022-09-20] MEDS: CARVEDILOL 12.5 MG TAB PO SCH ×2 (11:27→21:35)
[2022-09-20] MEDS: AMIODARONE HCL 200 MG TAB PO SCH ×2 (11:27→21:28)
[2022-09-20 12:45] VITALS: BP 87/59
[2022-09-20] MEDS: SODIUM FERR GLUC 62.5MG/5ML 125 MG in SODIUM CHL 0.9% 100 ML IV SCH (12:56)
[2022-09-20 13:30] VITALS: BP 87/53
[2022-09-20 14:00] VITALS: BP 93/65
[2022-09-20 16:42] VITALS: BP 119/73
[2022-09-20] MEDS: TAMSULOSIN HYDROCHLORIDE 0.4 MG CAP PO SCH (18:29)
[2022-09-20] MEDS ORDERED: MAGNESIUM SULFATE 1GM/100ML 100 ML IV ONE (20:15)
[2022-09-20] MEDS ORDERED: POTASSIUM CHL 20 Meq TABLET PO ONE (20:15)
[2022-09-20] MEDS ORDERED: POTASSIUM CHL 20MEQ/100ML 100 ML IV ONE (20:15)
[2022-09-20 22:00] VITALS: BP 108/76
[2022-09-21] MEDS: IPRATROPIUM BROM 0.5 MG/2.5ML INH SOL NEB SCH ×4 (00:01→18:10)
[2022-09-21] MEDS: ALBUTEROL SULF 2.5 MG/0.5ML(0.5%) NEB SOLN NEB SCH ×4 (00:01→18:10)
[2022-09-21 05:00] VITALS: BP 101/75
[2022-09-21 05:16] LABS: Basophils # (auto) 0.1 10 ^3/uL (0-0.2); Basophils % (auto) 0.6 % (0.0-2.0); Eosinophils # (auto) 0.1 10 ^3/uL (0-0.8); Eosinophils % (auto) 0.9 % (0.0-7.0); Hematocrit 26.4 % (41.0-53.0); Hemoglobin 8.6 g/dL (13.5-17.5); Lymphocytes # (auto) 1.3 10 ^3/uL (0.4-5.4); Lymphocytes % (auto) 12.1 % (10.0-50.0); Mean Corpuscular Hemoglobin 27.4 pg (28.0-32.0); Mean Corpuscular Hgb Conc. 32.5 g/dL (32.0-36.0); Mean Corpuscular Volume 84.3 fL (80.0-100.0); Monocytes % (auto) 9.4 % (0.0-12.0); Neutrophils # (auto) 8.2 10 ^3/uL (1.6-8.6); Red Blood Cells 3.13 10^6/uL (4.5-5.90); Red Cell Distribution Width 18.4 % (11.8-14.3); White Blood Cell 10.6 10^3/uL (4.4-10.8)
[2022-09-21 05:26] LABS: Potassium 3.9 mmol/L (3.5-5.1)
[2022-09-21 05:28] LABS: BUN/Creatinine Ratio 16.7 (10.0-20.0)
[2022-09-21 05:29] LABS: Magnesium 2.4 mg/dL (1.6-2.6)
[2022-09-21] MEDS: ACCU-CHEK COMFORT CURVE STRIP VI SCH ×4 (06:06→22:00)
[2022-09-21] MEDS: InsuLIN REG 1unit/0.01ml Soln (100units/ml) SC SCH ×4 (06:09→21:42)
[2022-09-21] MEDS: ACETYLCYSTEINE 20%(200MG/ML) SOL 4ML NEB SCH ×3 (06:35→18:11)
[2022-09-21] MEDS: MIDODRINE HCL 10 MG TAB PO SCH ×3 (07:45→17:06)
[2022-09-21] MEDS ORDERED: ALBUMIN 25% 100 ML IV ONE (07:45)
[2022-09-21 08:53] VITALS: BP 101/71
[2022-09-21] MEDS ORDERED: APIXABAN 2.5 MG TAB PO SCH (10:00)
[2022-09-21] MEDS ORDERED: SODIUM CHL 0.9% 1000 ML BAG XX ONE (12:45)
[2022-09-21 13:00] VITALS: BP 128/82
[2022-09-21] MEDS: APIXABAN 5 MG TAB PO SCH ×2 (15:10→21:44)
[2022-09-21] MEDS: SODIUM FERR GLUC 62.5MG/5ML 125 MG in SODIUM CHL 0.9% 100 ML IV SCH (15:10)
[2022-09-21] MEDS: AMIODARONE HCL 200 MG TAB PO SCH ×2 (15:10→21:44)
[2022-09-21] MEDS: CARVEDILOL 12.5 MG TAB PO SCH ×2 (15:11→22:00)
[2022-09-21] MEDS: PIPERACILLIN-TAZOB 2.25GM 50 ML IV SCH (16:42)
[2022-09-21 17:00] VITALS: BP 99/78
[2022-09-21] MEDS: TAMSULOSIN HYDROCHLORIDE 0.4 MG CAP PO SCH (17:05)
[2022-09-21] MEDS: LORazepam 2MG/ML-1ML VIAL IV PRN (18:14)
[2022-09-21] MEDS ORDERED: EPOETIN ALFA-EPBX 10,000 UNIT/1ML VIAL SC ONE (21:00)
[2022-09-21 22:00] VITALS: BP 88/62
[2022-09-22] VITALS (7 sets, daily range): BP systolic 86–114; BP diastolic 65–74
[2022-09-22] MEDS: PIPERACILLIN-TAZOB 2.25GM 50 ML IV SCH ×2 (04:56→15:46)
[2022-09-22] MEDS: MIDODRINE HCL 10 MG TAB PO SCH ×3 (05:50→17:05)
[2022-09-22] MEDS: IPRATROPIUM BROM 0.5 MG/2.5ML INH SOL NEB SCH ×4 (06:00→19:53)
[2022-09-22] MEDS: ALBUTEROL SULF 2.5 MG/0.5ML(0.5%) NEB SOLN NEB SCH ×4 (06:00→19:53)
[2022-09-22] MEDS: ACCU-CHEK COMFORT CURVE STRIP VI SCH ×3 (06:14→16:55)
[2022-09-22] MEDS: InsuLIN REG 1unit/0.01ml Soln (100units/ml) SC SCH ×4 (06:14→21:42)
[2022-09-22 06:24] LABS: Basophils # (auto) 0 10 ^3/uL (0-0.2); Basophils % (auto) 0.5 % (0.0-2.0); Calcium 7.9 mg/dL (8.5-10.1); Eosinophils # (auto) 0.1 10 ^3/uL (0-0.8); Eosinophils % (auto) 0.9 % (0.0-7.0); Hematocrit 26.2 % (41.0-53.0); Hemoglobin 8.5 g/dL (13.5-17.5); Lymphocytes # (auto) 1.3 10 ^3/uL (0.4-5.4); Mean Corpuscular Hemoglobin 28.8 pg (28.0-32.0); Mean Corpuscular Hgb Conc. 32.4 g/dL (32.0-36.0); Mean Corpuscular Volume 88.8 fL (80.0-100.0); Monocytes # (auto) 0.9 10 ^3/uL (0-1.3); Monocytes % (auto) 9.5 % (0.0-12.0); Neutrophils # (auto) 6.9 10 ^3/uL (1.6-8.6); Neutrophils % (auto) 75.1 % (37.0-80.0); Nucleated Red Blood Cells % 0.1 %; Potassium 3.7 mmol/L (3.5-5.1); Red Blood Cells 2.95 10^6/uL (4.5-5.90); Red Cell Distribution Width 17.8 % (11.8-14.3); White Blood Cell 9.2 10^3/uL (4.4-10.8)
[2022-09-22 06:27] LABS: Albumin 2.3 g/dL (3.4-5.0); BUN/Creatinine Ratio 13.1 (10.0-20.0)
[2022-09-22 06:29] LABS: Bilirubin, Total 0.5 mg/dL (0.2-1.0); Total Protein 7.3 g/dL (6.4-8.2)
[2022-09-22] MEDS: ACETYLCYSTEINE 20%(200MG/ML) SOL 4ML NEB SCH ×4 (06:30→22:00)
[2022-09-22] MEDS: APIXABAN 5 MG TAB PO SCH ×2 (09:00→21:53)
[2022-09-22] MEDS: AMIODARONE HCL 200 MG TAB PO SCH ×2 (09:01→21:54)
[2022-09-22] MEDS: CARVEDILOL 12.5 MG TAB PO SCH ×2 (09:09→21:56)
[2022-09-22] MEDS: DOCUSATE SOD 100 MG CAP PO PRN ×2 (11:34→11:35)
[2022-09-22] MEDS: LORazepam 2MG/ML-1ML VIAL IV PRN (14:11)
[2022-09-22] MEDS: TAMSULOSIN HYDROCHLORIDE 0.4 MG CAP PO SCH (17:05)
[2022-09-23] VITALS (7 sets, daily range): BP systolic 90–124; BP diastolic 60–80
[2022-09-23] MEDS: ALBUTEROL SULF 2.5 MG/0.5ML(0.5%) NEB SOLN NEB SCH ×4 (00:19→18:52)
[2022-09-23] MEDS: IPRATROPIUM BROM 0.5 MG/2.5ML INH SOL NEB SCH ×4 (00:19→18:52)
[2022-09-23] MEDS: PIPERACILLIN-TAZOB 2.25GM 50 ML IV SCH ×2 (03:00→17:17)
[2022-09-23] MEDS: MIDODRINE HCL 10 MG TAB PO SCH ×4 (05:51→17:17)
[2022-09-23] MEDS: InsuLIN REG 1unit/0.01ml Soln (100units/ml) SC SCH ×4 (06:18→21:57)
[2022-09-23 06:19] LABS: Potassium 3.7 mmol/L (3.5-5.1)
[2022-09-23 06:23] LABS: Albumin 2.4 g/dL (3.4-5.0); BUN/Creatinine Ratio 13.7 (10.0-20.0); Calcium 8.4 mg/dL (8.5-10.1); Magnesium 2.2 mg/dL (1.6-2.6)
[2022-09-23 06:27] LABS: Bilirubin, Total 0.5 mg/dL (0.2-1.0); Total Protein 7.3 g/dL (6.4-8.2)
[2022-09-23 06:33] LABS: Basophils # (auto) 0.1 10 ^3/uL (0-0.2); Basophils % (auto) 0.7 % (0.0-2.0); Eosinophils # (auto) 0 10 ^3/uL (0-0.8); Eosinophils % (auto) 0.5 % (0.0-7.0); Hematocrit 28.1 % (41.0-53.0); Hemoglobin 8.9 g/dL (13.5-17.5); Lymphocytes # (auto) 1.3 10 ^3/uL (0.4-5.4); Lymphocytes % (auto) 14.2 % (10.0-50.0); Mean Corpuscular Hemoglobin 27.1 pg (28.0-32.0); Mean Corpuscular Hgb Conc. 31.5 g/dL (32.0-36.0); Mean Corpuscular Volume 85.8 fL (80.0-100.0); Monocytes # (auto) 0.8 10 ^3/uL (0-1.3); Monocytes % (auto) 8.9 % (0.0-12.0); Neutrophils # (auto) 6.8 10 ^3/uL (1.6-8.6); Neutrophils % (auto) 75.7 % (37.0-80.0); Nucleated Red Blood Cells % 0.1 %; Red Blood Cells 3.28 10^6/uL (4.5-5.90); Red Cell Distribution Width 17.9 % (11.8-14.3)
[2022-09-23] MEDS: ACETYLCYSTEINE 20%(200MG/ML) SOL 4ML NEB SCH ×2 (07:05→13:35)
[2022-09-23] MEDS: AMIODARONE HCL 200 MG TAB PO SCH ×2 (10:18→22:02)
[2022-09-23] MEDS: CARVEDILOL 12.5 MG TAB PO SCH ×2 (10:18→22:00)
[2022-09-23] MEDS: DOCUSATE SOD 100 MG CAP PO PRN ×2 (10:18→22:07)
[2022-09-23] MEDS: APIXABAN 5 MG TAB PO SCH ×2 (10:19→22:01)
[2022-09-23] MEDS: ACCU-CHEK COMFORT CURVE STRIP VI SCH ×3 (12:15→22:00)
[2022-09-23] MEDS: TAMSULOSIN HYDROCHLORIDE 0.4 MG CAP PO SCH (17:17)
[2022-09-23] MEDS ORDERED: LACTULOSE 20Gm/30ML SOLN PO PRN (19:00)
[2022-09-24] MEDS: IPRATROPIUM BROM 0.5 MG/2.5ML INH SOL NEB SCH ×5 (00:27→23:00)
[2022-09-24] MEDS: ACETYLCYSTEINE 20%(200MG/ML) SOL 4ML NEB SCH ×4 (00:27→23:00)
[2022-09-24] MEDS: ALBUTEROL SULF 2.5 MG/0.5ML(0.5%) NEB SOLN NEB SCH ×5 (00:27→23:00)
[2022-09-24] MEDS: PIPERACILLIN-TAZOB 2.25GM 50 ML IV SCH ×2 (03:00→16:34)
[2022-09-24 05:00] VITALS: BP 111/67
[2022-09-24] MEDS: MIDODRINE HCL 10 MG TAB PO SCH ×3 (06:00→18:07)
[2022-09-24] MEDS: InsuLIN REG 1unit/0.01ml Soln (100units/ml) SC SCH ×4 (06:21→22:28)
[2022-09-24 06:35] LABS: Basophils # (auto) 0.1 10 ^3/uL (0-0.2); Eosinophils # (auto) 0.1 10 ^3/uL (0-0.8); Hemoglobin 8.1 g/dL (13.5-17.5); Lymphocytes # (auto) 1.6 10 ^3/uL (0.4-5.4); Lymphocytes % (auto) 18.1 % (10.0-50.0); Monocytes # (auto) 0.9 10 ^3/uL (0-1.3); Monocytes % (auto) 9.9 % (0.0-12.0); Neutrophils % (auto) 70.4 % (37.0-80.0)
[2022-09-24 06:39] LABS: Basophils % (auto) 0.7 % (0.0-2.0); Eosinophils % (auto) 0.9 % (0.0-7.0); Hematocrit 25.1 % (41.0-53.0); Mean Corpuscular Hemoglobin 27.5 pg (28.0-32.0); Mean Corpuscular Hgb Conc. 32.1 g/dL (32.0-36.0); Mean Corpuscular Volume 85.4 fL (80.0-100.0); Neutrophils # (auto) 6.2 10 ^3/uL (1.6-8.6); Nucleated Red Blood Cells % 0.1 %; Red Blood Cells 2.93 10^6/uL (4.5-5.90); Red Cell Distribution Width 18.1 % (11.8-14.3); White Blood Cell 8.8 10^3/uL (4.4-10.8)
[2022-09-24] MEDS: ACCU-CHEK COMFORT CURVE STRIP VI SCH ×4 (06:42→22:26)
[2022-09-24 06:56] LABS: Albumin 2.3 g/dL (3.4-5.0); Calcium 8.2 mg/dL (8.5-10.1); Magnesium 2.4 mg/dL (1.6-2.6); Potassium 3.5 mmol/L (3.5-5.1)
[2022-09-24 06:58] LABS: BUN/Creatinine Ratio 14.2 (10.0-20.0); Bilirubin, Total 0.4 mg/dL (0.2-1.0); Total Protein 7.4 g/dL (6.4-8.2)
[2022-09-24 09:00] VITALS: BP 90/69
[2022-09-24 09:11] LABS: INR 1.28 (0.9-1.15)
[2022-09-24] MEDS ORDERED: HEPARIN SODIUM (PORCINE) 5000 UNITS/ML 1ML VIAL ONE (09:16)
[2022-09-24] MEDS ORDERED: fentaNYL CITRATE 100 MCG/2 ML VL ONE (09:16)
[2022-09-24] MEDS ORDERED: LIDOCAINE 2%HCL (LOCAL ANESTH.) INJ 20ML MDV ONE (09:17)
[2022-09-24] MEDS: APIXABAN 5 MG TAB PO SCH ×2 (10:00→22:33)
[2022-09-24] MEDS: CARVEDILOL 12.5 MG TAB PO SCH ×2 (10:00→22:36)
[2022-09-24] MEDS ORDERED: ceFAZolin 1GM/50ML 50 ML IV ONE (10:01)
[2022-09-24] MEDS: AMIODARONE HCL 200 MG TAB PO SCH ×2 (12:12→22:33)
[2022-09-24 13:00] VITALS: BP 94/61
[2022-09-24] MEDS ORDERED: LACTULOSE 20Gm/30ML SOLN PO PRN (15:45)
[2022-09-24] MEDS ORDERED: FLEET ENEMA(ADULT) 135 ML PR ONE (16:15)
[2022-09-24 17:00] VITALS: BP 113/72
[2022-09-24] MEDS: TAMSULOSIN HYDROCHLORIDE 0.4 MG CAP PO SCH (18:07)
[2022-09-24 22:07] VITALS: BP 104/67
[2022-09-25] VITALS (7 sets, daily range): BP systolic 71–104; BP diastolic 54–68
[2022-09-25] MEDS: ACETYLCYSTEINE 20%(200MG/ML) SOL 4ML NEB SCH ×3 (00:18→13:10)
[2022-09-25] MEDS: PIPERACILLIN-TAZOB 2.25GM 50 ML IV SCH ×2 (03:56→17:00)
[2022-09-25] MEDS: MIDODRINE HCL 10 MG TAB PO SCH ×3 (05:09→17:50)
[2022-09-25 05:52] LABS: Basophils # (auto) 0.1 10 ^3/uL (0-0.2); Eosinophils # (auto) 0.1 10 ^3/uL (0-0.8); Hemoglobin 8.4 g/dL (13.5-17.5); Monocytes # (auto) 0.9 10 ^3/uL (0-1.3); Nucleated Red Blood Cells % 0.1 %
[2022-09-25 05:56] LABS: Basophils % (auto) 0.8 % (0.0-2.0); Eosinophils % (auto) 0.8 % (0.0-7.0); Hematocrit 25.6 % (41.0-53.0); Lymphocytes # (auto) 1.2 10 ^3/uL (0.4-5.4); Mean Corpuscular Hgb Conc. 32.7 g/dL (32.0-36.0); Mean Corpuscular Volume 85.7 fL (80.0-100.0); Monocytes % (auto) 9.6 % (0.0-12.0); Neutrophils # (auto) 7.2 10 ^3/uL (1.6-8.6); Neutrophils % (auto) 75.8 % (37.0-80.0); Red Blood Cells 2.99 10^6/uL (4.5-5.90); Red Cell Distribution Width 17.6 % (11.8-14.3); White Blood Cell 9.4 10^3/uL (4.4-10.8)
[2022-09-25] MEDS: InsuLIN REG 1unit/0.01ml Soln (100units/ml) SC SCH ×4 (06:08→22:33)
[2022-09-25] MEDS: ACCU-CHEK COMFORT CURVE STRIP VI SCH ×4 (06:08→22:25)
[2022-09-25] MEDS ORDERED: ALBUMIN 5% 250 ML IV ONE (06:15)
[2022-09-25 06:34] LABS: BUN/Creatinine Ratio 15.1 (10.0-20.0); Calcium 8.2 mg/dL (8.5-10.1); Potassium 3.6 mmol/L (3.5-5.1)
[2022-09-25] MEDS: ALBUTEROL SULF 2.5 MG/0.5ML(0.5%) NEB SOLN NEB SCH ×3 (07:08→18:49)
[2022-09-25] MEDS: IPRATROPIUM BROM 0.5 MG/2.5ML INH SOL NEB SCH ×3 (07:08→18:49)
[2022-09-25] MEDS: APIXABAN 5 MG TAB PO SCH ×2 (09:34→22:47)
[2022-09-25] MEDS: AMIODARONE HCL 200 MG TAB PO SCH ×2 (09:34→22:24)
[2022-09-25] MEDS: CARVEDILOL 12.5 MG TAB PO SCH ×2 (09:35→22:00)
[2022-09-25] MEDS ORDERED: AMOX500T86 PO (11:03)
[2022-09-25] MEDS: TAMSULOSIN HYDROCHLORIDE 0.4 MG CAP PO SCH (17:50)
[2022-09-25] MEDS ORDERED: APIXABAN 2.5 MG TAB ONE (21:39)
[2022-09-25] MEDS ORDERED: APIXABAN 2.5 MG TAB PO SCH (22:45)
[2022-09-26] MEDS: PIPERACILLIN-TAZOB 2.25GM 50 ML IV SCH (04:14)
[2022-09-26 05:00] VITALS: BP 100/75
[2022-09-26] MEDS: IPRATROPIUM BROM 0.5 MG/2.5ML INH SOL NEB SCH ×4 (06:00→19:05)
[2022-09-26] MEDS: ACETYLCYSTEINE 20%(200MG/ML) SOL 4ML NEB SCH ×2 (06:00→12:57)
[2022-09-26] MEDS: ALBUTEROL SULF 2.5 MG/0.5ML(0.5%) NEB SOLN NEB SCH ×4 (06:00→19:05)
[2022-09-26] MEDS: InsuLIN REG 1unit/0.01ml Soln (100units/ml) SC SCH ×2 (06:03→13:48)
[2022-09-26] MEDS: ACCU-CHEK COMFORT CURVE STRIP VI SCH ×2 (06:03→13:45)
[2022-09-26] MEDS: MIDODRINE HCL 10 MG TAB PO SCH ×2 (06:09→12:00)
[2022-09-26] MEDS ORDERED: SODIUM CHL 0.9% 1000 ML BAG XX ONE (06:15)
[2022-09-26] MEDS ORDERED: ALBUMIN 25% 100 ML IV ONE (06:15)
[2022-09-26 06:43] LABS: Potassium 3.4 mmol/L (3.5-5.1)
[2022-09-26 06:49] LABS: Basophils # (auto) 0.1 10 ^3/uL (0-0.2); Basophils % (auto) 0.7 % (0.0-2.0); Eosinophils # (auto) 0.1 10 ^3/uL (0-0.8); Hematocrit 22.4 % (41.0-53.0); Hemoglobin 7.4 g/dL (13.5-17.5); Lymphocytes # (auto) 1.3 10 ^3/uL (0.4-5.4); Monocytes # (auto) 0.7 10 ^3/uL (0-1.3); Monocytes % (auto) 7.5 % (0.0-12.0); Neutrophils # (auto) 6.9 10 ^3/uL (1.6-8.6)
[2022-09-26 06:52] LABS: Eosinophils % (auto) 1.1 % (0.0-7.0); Lymphocytes % (auto) 14.1 % (10.0-50.0); Mean Corpuscular Hemoglobin 29.2 pg (28.0-32.0); Mean Corpuscular Hgb Conc. 33.1 g/dL (32.0-36.0); Mean Corpuscular Volume 88.4 fL (80.0-100.0); Neutrophils % (auto) 76.6 % (37.0-80.0); Nucleated Red Blood Cells % 0.1 %; Red Blood Cells 2.54 10^6/uL (4.5-5.90); Red Cell Distribution Width 17.7 % (11.8-14.3)
[2022-09-26 06:56] LABS: Albumin 2.4 g/dL (3.4-5.0); BUN/Creatinine Ratio 15.7 (10.0-20.0); Bilirubin, Total 0.4 mg/dL (0.2-1.0); Total Protein 6.8 g/dL (6.4-8.2)
[2022-09-26] MEDS ORDERED: POTASSIUM CHL 20 Meq TABLET PO ONE (08:00)
[2022-09-26 09:00] VITALS: BP 101/69
[2022-09-26] MEDS: CARVEDILOL 12.5 MG TAB PO SCH (10:00)
[2022-09-26] MEDS: APIXABAN 5 MG TAB PO SCH (10:00)
[2022-09-26] MEDS: AMIODARONE HCL 200 MG TAB PO SCH (10:01)
[2022-09-26 13:00] VITALS: BP 111/70
[2022-09-26 14:17] VITALS: BP 100/61
[2022-09-26 17:19] VITALS: BP 109/69
[2022-09-26] MEDS ORDERED: EPOETIN ALFA-EPBX 10,000 UNIT/1ML VIAL SC ONE (21:00)
== END 2022-09-26 18:40 | disposition home or self-care (01) | DRG 192 ==
LOC: ER 22:35 → TELE 09-12 06:52 → TELE-WESTW 09-12 22:00
PROVIDERS: ADMIT Nurse Practitioner; ATTEND Internal Medicine Pulmonary Disease
PROC: 5A1D70Z Performance of Urinary Filtration, Intermittent, Less than 6 Hours Per Day (ICD-10-PCS; 2022-09-13)
PROC: 5A1D70Z Performance of Urinary Filtration, Intermittent, Less than 6 Hours Per Day (ICD-10-PCS; 2022-09-16)
PROC: 4A023N7 Measurement of Cardiac Sampling and Pressure, Left Heart, Percutaneous Approach (ICD-10-PCS; principal; 2022-09-17)
PROC: B211YZZ Fluoroscopy of Multiple Coronary Arteries using Other Contrast (ICD-10-PCS; 2022-09-17)
PROC: B215YZZ Fluoroscopy of Left Heart using Other Contrast (ICD-10-PCS; 2022-09-17)
PROC: 0W9B3ZZ Drainage of Left Pleural Cavity, Percutaneous Approach (ICD-10-PCS; 2022-09-19)
PROC: 5A1D70Z Performance of Urinary Filtration, Intermittent, Less than 6 Hours Per Day (ICD-10-PCS; 2022-09-21)
PROC: 0W9B3ZZ Drainage of Left Pleural Cavity, Percutaneous Approach (ICD-10-PCS; 2022-09-24)
PROC: 0JH63XZ Insertion of Tunneled Vascular Access Device into Chest Subcutaneous Tissue and Fascia, Percutaneous Approach (ICD-10-PCS; 2022-09-24)
PROC: 02HV33Z Insertion of Infusion Device into Superior Vena Cava, Percutaneous Approach (ICD-10-PCS; 2022-09-24)
PROC: B5181ZA Fluoroscopy of Superior Vena Cava using Low Osmolar Contrast, Guidance (ICD-10-PCS; 2022-09-24)
PROC: B548ZZA Ultrasonography of Superior Vena Cava, Guidance (ICD-10-PCS; 2022-09-24)
PROC: 5A1D70Z Performance of Urinary Filtration, Intermittent, Less than 6 Hours Per Day (ICD-10-PCS; 2022-09-26)
DX: I13.2 Hypertensive heart and chronic kidney disease with heart failure and with stage 5 chronic kidney disease, or end stage renal disease (principal); J96.21 Acute and chronic respiratory failure with hypoxia; J69.0 Pneumonitis due to inhalation of food and vomit; D68.69 Other thrombophilia; I42.0 Dilated cardiomyopathy; J91.8 Pleural effusion in other conditions classified elsewhere; N17.9 Acute kidney failure, unspecified; E44.0 Moderate protein-calorie malnutrition; N18.6 End stage renal disease; Z20.822 Contact with and (suspected) exposure to COVID-19; E11.22 Type 2 diabetes mellitus with diabetic chronic kidney disease; I50.43 Acute on chronic combined systolic (congestive) and diastolic (congestive) heart failure; E66.9 Obesity, unspecified; I25.5 Ischemic cardiomyopathy; E78.5 Hyperlipidemia, unspecified; F15.10 Other stimulant abuse, uncomplicated; I48.91 Unspecified atrial fibrillation; I20.0 Unstable angina; N40.0 Benign prostatic hyperplasia without lower urinary tract symptoms; K59.00 Constipation, unspecified; Z99.2 Dependence on renal dialysis; Z68.34 Body mass index [BMI] 34.0-34.9, adult; Z79.01 Long term (current) use of anticoagulants; Z80.1 Family history of malignant neoplasm of trachea, bronchus and lung; Z82.3 Family history of stroke
CPT/HCPCS: 36415; 36558; 36600; 70450; 71045; 71250; 73562; 76000; 76536; 76604; 76937; 76942; 77001; 80048; 80053; 80061; 80307; 82805; 82962; 83036; 83735; 83880; 83986; 84443; 84484; 85025; 85610; 85730; 87070; 87081; 87205; 87340; 87426; 89051; 90935; 93005; 93458; 94640; 97110; 97116; 97163; 97530; 99152; C1894; G0378; J0690; J1642; J1815; J2250; J2543; J3480; J7060; P9047; Q9967

== ENCOUNTER → 2022-12-03 | Outpatient (CLI) | payer MEDICAID ==
[~2022-12-03] MED LIST changes: +AMIO200T13 PO; -AMIO200T33 PO; +AMOX500T86 PO; -BACDST PO; -CAR125T OR; +CARV12.544 PO; +DIGO0.12 PO; +FURO40TA4 PO; +METO-289 PO; +PROP1TAB53 PO; +SEVE800T10 PO; +TAMS0.4C36 PO
[2022-12-03 10:00] VITALS: BP 99/63; PULSE 93; RESP 18; O2SAT 95
[2022-12-03 10:22] VITALS: BP 117/70; PULSE 95; RESP 18; O2SAT 95
== END | disposition home or self-care (01) ==
LOC: Rad HDHVI 09:53
PROVIDERS: ATTEND Internal Medicine Cardiovascular Disease
DX: Z01.818 Encounter for other preprocedural examination (principal); I48.20 Chronic atrial fibrillation, unspecified; I11.0 Hypertensive heart disease with heart failure; I50.43 Acute on chronic combined systolic (congestive) and diastolic (congestive) heart failure; J90 Pleural effusion, not elsewhere classified; R94.31 Abnormal electrocardiogram [ECG] [EKG]; I48.92 Unspecified atrial flutter
CPT/HCPCS: 71046; 93005; G0463

== ENCOUNTER 2022-12-06 07:01 | Day surgery (SDC) | payer MEDICAID ==
[2022-12-03 11:38] LABS: Basophils # (auto) 0.1 10 ^3/uL (0-0.2); Basophils % (auto) 1.1 % (0.0-2.0); Eosinophils # (auto) 0.2 10 ^3/uL (0-0.8); Eosinophils % (auto) 2.5 % (0.0-7.0); Hematocrit 36.6 % (41.0-53.0); Hemoglobin 11.7 g/dL (13.5-17.5); Lymphocytes # (auto) 1.5 10 ^3/uL (0.4-5.4); Lymphocytes % (auto) 17.5 % (10.0-50.0); Mean Corpuscular Hemoglobin 27.5 pg (28.0-32.0); Mean Corpuscular Hgb Conc. 31.9 g/dL (32.0-36.0); Mean Corpuscular Volume 86.4 fL (80.0-100.0); Monocytes # (auto) 0.8 10 ^3/uL (0-1.3); Monocytes % (auto) 9.7 % (0.0-12.0); Neutrophils # (auto) 5.9 10 ^3/uL (1.6-8.6); Neutrophils % (auto) 69.2 % (37.0-80.0); Nucleated Red Blood Cells % 0.1 %; Red Blood Cells 4.23 10^6/uL (4.5-5.90); Red Cell Distribution Width 17.9 % (11.8-14.3); White Blood Cell 8.6 10^3/uL (4.4-10.8)
[2022-12-03 11:56] LABS: INR 1.14 (0.9-1.15); Partial Thromboplastin Time 32.2 SEC (24.5-34.5); Prothrombin Time 11.9 sec (9.3-11.8)
[2022-12-03 12:02] LABS: Anion Gap 6.4 (5-15); Carbon Dioxide 27.6 mmol/L (20-30); Chloride 102 mmol/L (98-107); Potassium 3.9 mmol/L (3.5-5.1); Sodium 136 mmol/L (136-145)
[2022-12-03 12:03] LABS: Calcium 9.1 mg/dL (8.5-10.1)
[2022-12-03 12:08] LABS: BUN/Creatinine Ratio 9.6 (10.0-20.0); Blood Urea Nitrogen 25 mg/dL (9-23); Glucose 150 mg/dL (74-106)
[~2022-12-06] VITALS: Ht 185.4 cm; Wt 142.4 kg
[~2022-12-06 07:01] MED LIST changes: -AMIO200T13 PO; -AMLO1TAB23 PO; -AMOX500T86 PO; -ATOR20TA50 PO; -CARV12.544 PO; -CHOL20002 PO; -FURO40TA4 PO; -INSLANTI SC; -METF-370 PO; -SYRI25MI4 XX; -TAMS0.4C36 PO
[2022-12-06] MEDS ORDERED: VANCOMYCIN 1GM/250ML 250 ML IV ONE ×2 (08:30→09:31)
[2022-12-06] MEDS ORDERED: MIDAZOLAM HCL 2MG/2ML 2ml VIAL (1mg/ml) ONE ×2 (09:30→11:10)
[2022-12-06] MEDS ORDERED: fentaNYL CITRATE 100 MCG/2 ML VL ONE (09:30)
[2022-12-06] MEDS ORDERED: VANCOMYCIN HCL 1000 MG VL ONE (09:30)
[2022-12-06] MEDS ORDERED: LIDOCAINE 2%HCL (LOCAL ANESTH.) INJ 20ML MDV ONE ×2 (09:31→09:39)
[2022-12-06] MEDS ORDERED: IOHEXOL 350 MG/ML 100ML IJ ONE (09:31)
[2022-12-06] MEDS ORDERED: ONDANSETRON HCL 4 MG/2 ML VIAL ONE (09:50)
[2022-12-06] MEDS ORDERED: ANGIOMAX 250 MG VIAL IV ONE (10:02)
[2022-12-06] MEDS ORDERED: HYDROmorphone HCL 2 MG/ML VL/or syr ONE (10:15)
[2022-12-06] MEDS ORDERED: FUROSEMIDE 20 MG/2 ML VIAL ONE (11:02)
== END 2022-12-06 14:35 | disposition home or self-care (01) ==
LOC: CATH 07:01
PROVIDERS: ATTEND Internal Medicine Cardiovascular Disease
DX: I42.0 Dilated cardiomyopathy (principal); I12.0 Hypertensive chronic kidney disease with stage 5 chronic kidney disease or end stage renal disease; E11.22 Type 2 diabetes mellitus with diabetic chronic kidney disease; N18.6 End stage renal disease; I48.91 Unspecified atrial fibrillation; I48.92 Unspecified atrial flutter; Z99.2 Dependence on renal dialysis; J44.9 Chronic obstructive pulmonary disease, unspecified; Z80.1 Family history of malignant neoplasm of trachea, bronchus and lung; Z82.49 Family history of ischemic heart disease and other diseases of the circulatory system; Z79.899 Other long term (current) drug therapy; Z98.890 Other specified postprocedural states
CPT/HCPCS: 33249; 36415; 71045; 80048; 85025; 85610; 85730; 92960; C1721; C1730; C1769; C1887; C1895; C1898; J0583; J1170; J1940; J2250; J2405; J3010; J3370; Q9967; 99152; 99153

== ENCOUNTER 2022-12-11 09:02 | Inpatient (IN) | payer MEDICAID ==
[~2022-12-11] VITALS: Ht 185.4 cm; Wt 114.0 kg
[2022-12-11 10:10] LABS: Basophils # (auto) 0.1 10 ^3/uL (0-0.2); Basophils % (auto) 2.1 % (0.0-2.0); Eosinophils # (auto) 0.2 10 ^3/uL (0-0.8); Eosinophils % (auto) 3.6 % (0.0-7.0); Hematocrit 30.9 % (41.0-53.0); Hemoglobin 10.8 g/dL (13.5-17.5); Lymphocytes % (auto) 17.3 % (10.0-50.0); Mean Corpuscular Hemoglobin 31.5 pg (28.0-32.0); Mean Corpuscular Hgb Conc. 35.1 g/dL (32.0-36.0); Mean Corpuscular Volume 89.8 fL (80.0-100.0); Monocytes # (auto) 0.5 10 ^3/uL (0-1.3); Monocytes % (auto) 8.1 % (0.0-12.0); Neutrophils # (auto) 4.1 10 ^3/uL (1.6-8.6); Neutrophils % (auto) 68.9 % (37.0-80.0); Nucleated Red Blood Cells % 0.2 %; Red Blood Cells 3.44 10^6/uL (4.5-5.90); Red Cell Distribution Width 17.6 % (11.8-14.3)
[2022-12-11 10:25] VITALS: PULSE 80; RESP 17; O2SAT 94
[2022-12-11 10:26] LABS: Albumin 3.9 g/dL (3.2-4.8); Alkaline Phosphatase 107 U/L (46-116); Aspartate Aminotransferase 13 U/L (13-40); BUN/Creatinine Ratio 6.8 (10.0-20.0); Bilirubin, Total 1.3 mg/dL (0.2-1.0); Blood Urea Nitrogen 13 mg/dL (9-23); Calcium 8.9 mg/dL (8.5-10.1); Carbon Dioxide 30 mmol/L (20-30); Glucose 113 mg/dL (74-106); Total Protein 7.5 g/dL (5.7-8.2)
[2022-12-11 10:27] LABS: Alanine Aminotransferase < 9 U/L (7-40)
[2022-12-11] MEDS ORDERED: FUROSEMIDE 40 MG/4 ML VIAL IV ONE (10:30)
[2022-12-11 10:42] LABS: Anion Gap 6 (5-15); Chloride 101 mmol/L (98-107); Potassium 3.5 mmol/L (3.5-5.1); Sodium 137 mmol/L (136-145)
[2022-12-11] MEDS ORDERED: MORPHINE SULFATE INJ 2 MG/ml SYRG IV PRN (11:45)
[2022-12-11] MEDS ORDERED: ALBUTEROL SULF 2.5 MG/0.5ML(0.5%) NEB SOLN NEB PRN (11:45)
[2022-12-11] MEDS ORDERED: DEXTROSE (50%) 50ML SYRG IV PRN (11:45)
[2022-12-11] MEDS ORDERED: ACETAMINOPHEN 325 MG TAB PO PRN (11:45)
[2022-12-11] MEDS ORDERED: NITROGLYCERIN 0.4 MG SL TAB SL PRN (11:45)
[2022-12-11] MEDS: SEVELAMER 800 MG TAB PO SCH ×2 (12:00→18:14)
[2022-12-11 12:27] LABS: Triglycerides 132 mg/dL (< 150)
[2022-12-11 12:28] LABS: LDL Cholesterol 70 mg/dL (< 100)
[2022-12-11 12:29] LABS: Cholesterol 117 mg/dL (< 200); HDL Cholesterol 23 mg/dL (40-59)
[2022-12-11] MEDS ORDERED: SODIUM CHL 0.9% 1000 ML BAG XX ONE (12:30)
[2022-12-11 12:38] LABS: % Iron Saturation 34.8 % (20-55)
[2022-12-11] MEDS: IPRATROPIUM BROM 0.5 MG/2.5ML INH SOL NEB SCH ×4 (13:54→22:19)
[2022-12-11] MEDS: ALBUTEROL SULF 2.5 MG/0.5ML(0.5%) NEB SOLN NEB SCH ×4 (13:54→22:19)
[2022-12-11] MEDS ORDERED: PATIENTS OWN MEDICATION (Sevelamer Carbonate 2 TAB) PO SCH (14:00)
[2022-12-11 15:02] VITALS: BP 119/82; PULSE 120; RESP 20; TEMP 98.2; O2SAT 94
[2022-12-11] MEDS ORDERED: ALBUMIN 25% 50 ML IV ONE (16:00)
[2022-12-11] MEDS: ACCU-CHEK COMFORT CURVE STRIP VI SCH ×2 (17:00→22:00)
[2022-12-11] MEDS: InsuLIN REG 1unit/0.01ml Soln (100units/ml) SC SCH ×2 (17:00→22:00)
[2022-12-11] MEDS ORDERED: PATIENTS OWN MEDICATION (Atorvastatin Calcium (Lipitor) 1 TAB) PO SCH (18:00)
[2022-12-11] MEDS ORDERED: BUMETANIDE 1 MG TAB PO SCH (18:00)
[2022-12-11 18:30] VITALS: PULSE 87; RESP 18; O2SAT 95
[2022-12-11 20:00] VITALS: PULSE 90; RESP 14; O2SAT 95
[2022-12-11] MEDS: HEPARIN SODIUM (PORCINE) 5000 UNITS/ML 1ML VIAL SC SCH (22:00)
[2022-12-11] MEDS ORDERED: PATIENTS OWN MEDICATION (Bumetanide 1 TAB) PO SCH (22:00)
[2022-12-11] MEDS: ATORVASTATIN 20 MG TAB PO SCH (23:11)
[2022-12-11] MEDS: APIXABAN 5 MG TAB PO SCH (23:12)
[2022-12-12] VITALS (15 sets, daily range): BP systolic 96–137; BP diastolic 56–81; PULSE 58–100; RESP 16–20; TEMP 98–98.5; O2SAT 93–100
[2022-12-12] MEDS: ALBUTEROL SULF 2.5 MG/0.5ML(0.5%) NEB SOLN NEB SCH ×6 (02:00→22:00)
[2022-12-12] MEDS: IPRATROPIUM BROM 0.5 MG/2.5ML INH SOL NEB SCH ×6 (02:00→22:00)
[2022-12-12 05:31] LABS: Basophils # (auto) 0.1 10 ^3/uL (0-0.2); Basophils % (auto) 1.3 % (0.0-2.0); Eosinophils # (auto) 0.2 10 ^3/uL (0-0.8); Eosinophils % (auto) 2.9 % (0.0-7.0); Hemoglobin 12.2 g/dL (13.5-17.5); Lymphocytes # (auto) 1.1 10 ^3/uL (0.4-5.4); Lymphocytes % (auto) 17.3 % (10.0-50.0); Mean Corpuscular Hgb Conc. 34.7 g/dL (32.0-36.0); Mean Corpuscular Volume 89.2 fL (80.0-100.0); Monocytes # (auto) 0.5 10 ^3/uL (0-1.3); Monocytes % (auto) 8.1 % (0.0-12.0); Neutrophils # (auto) 4.4 10 ^3/uL (1.6-8.6); Neutrophils % (auto) 70.4 % (37.0-80.0); Nucleated Red Blood Cells % 0.1 %; Red Blood Cells 3.93 10^6/uL (4.5-5.90); Red Cell Distribution Width 17.8 % (11.8-14.3); White Blood Cell 6.3 10^3/uL (4.4-10.8)
[2022-12-12 05:45] LABS: Albumin 4.4 g/dL (3.2-4.8); Alkaline Phosphatase 105 U/L (46-116); Anion Gap 7 (5-15); Aspartate Aminotransferase < 8 U/L (13-40); Blood Urea Nitrogen 19 mg/dL (9-23); Carbon Dioxide 30 mmol/L (20-30); Chloride 100 mmol/L (98-107); Glucose 115 mg/dL (74-106); Potassium 3.1 mmol/L (3.5-5.1); Sodium 137 mmol/L (136-145)
[2022-12-12 05:46] LABS: Bilirubin, Total 1.2 mg/dL (0.2-1.0); Phosphorus 3.5 mg/dL (2.4-5.1); Total Protein 7.3 g/dL (5.7-8.2)
[2022-12-12 05:58] LABS: Alanine Aminotransferase < 9 U/L (7-40)
[2022-12-12] MEDS: ACCU-CHEK COMFORT CURVE STRIP VI SCH ×4 (06:01→21:36)
[2022-12-12] MEDS: InsuLIN REG 1unit/0.01ml Soln (100units/ml) SC SCH ×4 (06:01→21:35)
[2022-12-12] MEDS: SEVELAMER 800 MG TAB PO SCH ×3 (08:21→18:57)
[2022-12-12] MEDS: APIXABAN 5 MG TAB PO SCH ×2 (08:22→21:29)
[2022-12-12] MEDS: DIGOXIN 0.125 MG TAB PO SCH (10:00)
[2022-12-12] MEDS: HEPARIN SODIUM (PORCINE) 5000 UNITS/ML 1ML VIAL SC SCH ×2 (10:00→22:14)
[2022-12-12] MEDS: BUMETANIDE 2.5mg/10ml (0.25 mg/ml) INJ IV SCH (10:00)
[2022-12-12] MEDS: METOPROLOL SUCCINATE XL 50 MG TAB PO SCH (10:00)
[2022-12-12] MEDS ORDERED: PROPRANOLOL HCL 20 MG TAB PO SCH (10:00)
[2022-12-12] MEDS ORDERED: SODIUM CHL 0.9% 1000 ML BAG XX ONE (13:15)
[2022-12-12] MEDS ORDERED: ALBUMIN 25% 100 ML IV ONE (13:15)
[2022-12-12] MEDS ORDERED: BUMETANIDE 2.5mg/10ml (0.25 mg/ml) INJ IV ONE (20:00)
[2022-12-12] MEDS: ATORVASTATIN 20 MG TAB PO SCH (21:29)
[2022-12-13] VITALS (8 sets, daily range): BP systolic 101–113; BP diastolic 57–77; PULSE 89–106; RESP 16–20; TEMP 97.6–98.1; O2SAT 94–99
[2022-12-13] MEDS: IPRATROPIUM BROM 0.5 MG/2.5ML INH SOL NEB SCH ×3 (02:00→10:25)
[2022-12-13] MEDS: ALBUTEROL SULF 2.5 MG/0.5ML(0.5%) NEB SOLN NEB SCH ×3 (02:00→10:25)
[2022-12-13 06:12] LABS: Chloride 102 mmol/L (98-107); Potassium 3.3 mmol/L (3.5-5.1); Sodium 139 mmol/L (136-145)
[2022-12-13 06:13] LABS: Anion Gap 8 (5-15); Carbon Dioxide 29 mmol/L (20-30)
[2022-12-13 06:18] LABS: BUN/Creatinine Ratio 6.7 (10.0-20.0); Blood Urea Nitrogen 14 mg/dL (9-23); Glucose 117 mg/dL (74-106)
[2022-12-13] MEDS: InsuLIN REG 1unit/0.01ml Soln (100units/ml) SC SCH ×2 (06:18→12:30)
[2022-12-13] MEDS: ACCU-CHEK COMFORT CURVE STRIP VI SCH ×2 (06:19→12:23)
[2022-12-13] MEDS ORDERED: LACTULOSE 20Gm/30ML SOLN PO ONE (07:45)
[2022-12-13] MEDS: BUMETANIDE 2.5mg/10ml (0.25 mg/ml) INJ IV SCH (09:34)
[2022-12-13] MEDS: METOPROLOL SUCCINATE XL 50 MG TAB PO SCH (09:35)
[2022-12-13] MEDS: APIXABAN 5 MG TAB PO SCH (09:35)
[2022-12-13] MEDS: DIGOXIN 0.125 MG TAB PO SCH (09:35)
[2022-12-13] MEDS: SEVELAMER 800 MG TAB PO SCH ×2 (09:35→12:23)
[2022-12-13] MEDS: HEPARIN SODIUM (PORCINE) 5000 UNITS/ML 1ML VIAL SC SCH (09:36)
[2022-12-13 12:20] LABS: Hepatitis B Surface Antigen Negative (Negative)
[2022-12-13 12:42] LABS: Hepatitis A Ab IgM Negative; Hepatitis B Core IgM Negative; Hepatitis C Antibody Negative (Negative)
[2022-12-13 13:06] LABS: COVID19 ANTIGEN SOFIA FIA NEGATIVE (NEGATIVE)
== END 2022-12-13 14:19 | disposition home or self-care (01) | DRG 133 ==
LOC: ER 09:02 → TELE 11:34 → TELE-CENTR 22:45
PROVIDERS: ADMIT Nurse Practitioner Family; ATTEND Family Medicine
PROC: 5A1D70Z Performance of Urinary Filtration, Intermittent, Less than 6 Hours Per Day (ICD-10-PCS; principal; 2022-12-11)
PROC: 5A1D70Z Performance of Urinary Filtration, Intermittent, Less than 6 Hours Per Day (ICD-10-PCS; 2022-12-12)
DX: J96.01 Acute respiratory failure with hypoxia (principal); I50.43 Acute on chronic combined systolic (congestive) and diastolic (congestive) heart failure; N18.6 End stage renal disease; D63.1 Anemia in chronic kidney disease; E11.22 Type 2 diabetes mellitus with diabetic chronic kidney disease; I13.2 Hypertensive heart and chronic kidney disease with heart failure and with stage 5 chronic kidney disease, or end stage renal disease; N39.0 Urinary tract infection, site not specified; I48.91 Unspecified atrial fibrillation; I44.7 Left bundle-branch block, unspecified; I25.10 Atherosclerotic heart disease of native coronary artery without angina pectoris; E78.5 Hyperlipidemia, unspecified; Z20.822 Contact with and (suspected) exposure to COVID-19; E66.01 Morbid (severe) obesity due to excess calories; Z68.33 Body mass index [BMI] 33.0-33.9, adult; Z80.1 Family history of malignant neoplasm of trachea, bronchus and lung; Z82.3 Family history of stroke; Z91.199 Patient's noncompliance with other medical treatment and regimen due to unspecified reason; Z95.0 Presence of cardiac pacemaker; Z99.2 Dependence on renal dialysis; Z99.81 Dependence on supplemental oxygen; Z91.119 Patient's noncompliance with dietary regimen due to unspecified reason
CPT/HCPCS: 36415; 71045; 80048; 80053; 80061; 80074; 82962; 83540; 83550; 83880; 84100; 84443; 84484; 85025; 85379; 87081; 87340; 87426; 90935; 93005; 93970; 94640; 96374; G0378; J1815

== ENCOUNTER → 2024-03-12 | Outpatient (CLI) | payer MEDICAID ==
[~2024-03-12] MED LIST changes: -ATO40T PO; +ATOR-507 PO
== END | disposition home or self-care (01) ==
LOC: Rad HDHVI 10:46
PROVIDERS: ATTEND Internal Medicine Cardiovascular Disease
DX: Z01.818 Encounter for other preprocedural examination (principal); I10 Essential (primary) hypertension
CPT/HCPCS: 93306

== ENCOUNTER → 2024-03-31 | Outpatient (CLI) | payer MEDICAID ==
[~2024-03-31] VITALS: Ht 185.4 cm; Wt 117.0 kg
--- NOTE | 2024-04-03 14:27 | DVHSR ---
APPROVED REPORT Exam: Nuclear Stress Test Indication: Pre-Operative CV evaluation Ht: 6 ft 1 in Wt: 258 lbs BSA: 2.40 m2 HR: 84 bpm BP: 114/78 mmHg BMI: 34.03 Rhythm: NSR, SA, PVCs Medical History Medical History: Diabetes, Cardiomyopathy, CHF, Atrial Fibrillation, HTN, ESRD, Pacemaker, Hyperchole sterolemia Medications: Amiodarone, Bumetadine, Eliquis, Atorvastatin, Toprol XL, Digoxin, Multivitamin Allergies: No known drug allergies Stress Test Details Stress Test: Exercise stress testing was performed using a Paolo protocol. HR Resting HR: 84 bpmMax Heart Rate (APMHR): 159.391257 bpm Max HR Achieved: 144 bpmTarget HR (85% APMHR): 135.396494 bpm % of APMHR: 90.57 Recovery HR: 85 bpm HR response to stress: Accelerated HR response to stress BP Resting BP: 114/78 mmHg Max BP: 157/87 mmHg Recovery BP: 146/90 mmHg BP response to stress: Normal blood pressure response to stress. ECG Resting ECG: Sinus Rhythm with SA Stress ECG: Sinus Tachycardia Arrhythmia: VPC's, APC's Recovery ECG: Sinus Rhythm Clinical Reason for Termination: Dyspnea, Fatigue Stress Symptoms: Dyspnea Exercise duration: 3 min 2 sec Exercise capacity: 4.6 METs Dyspnea that subsided during recovery. Stress ECG Conclusion LESS THAN 10% LIKELIHODD FOR STRESS INDUCED ISCHEMIA NON ISCHEMIC ECG RESPONUSE NON ISCHEMIC CLINICAL RESPONSE EF >55% NM EXAM: Myocardial Perfusion REST/STRESS Imaging Protocol: Rest Tc-99m/Stress Tc-99m 1 day Resting Data Rest SPECT myocardial perfusion imaging was performed in supine position 30 minutes following the int ravenous injection of 11 mCi of Tc-99m Sestamibi. Time of rest injection: 0918 Time of rest imagin Administration Route: IV Administration Site: Left AC Exercise Stress At peak stress, the patient was injected intravenously with 31.2 mCi of Tc-99m Sestamibi. Time of stress injection: 1022 Time of stress imagin Administration Route: IV Administration Site: Left AC Heart Rate at time of stress injection: 136 bpm. Patient continued to exercise for 1 minute(s). Gated Stress SPECT was performed 15 minutes after stress injection. The images were gated to evaluate regional wall motion and calculate left ventricular ejection fracti on. Comments Cardiolite injection at 1 minute, 37 seconds into test. Study Data Post stress, the left ventricular ejection was 53%.. Nuclear Conclusion LESS THAN 10% LIKELIHODD FOR STRESS INDUCED ISCHEMIA NON ISCHEMIC ECG RESPONUSE NON ISCHEMIC CLINICAL RESPONSE EF >55%
== END | disposition home or self-care (01) ==
LOC: Rad HDHVI 08:50
PROVIDERS: ATTEND Internal Medicine Cardiovascular Disease
DX: Z01.810 Encounter for preprocedural cardiovascular examination (principal); I49.3 Ventricular premature depolarization; I49.1 Atrial premature depolarization; I13.2 Hypertensive heart and chronic kidney disease with heart failure and with stage 5 chronic kidney disease, or end stage renal disease; E11.22 Type 2 diabetes mellitus with diabetic chronic kidney disease; I50.43 Acute on chronic combined systolic (congestive) and diastolic (congestive) heart failure; N18.6 End stage renal disease; I42.1 Obstructive hypertrophic cardiomyopathy; E78.00 Pure hypercholesterolemia, unspecified; I42.9 Cardiomyopathy, unspecified; I48.91 Unspecified atrial fibrillation; Z95.0 Presence of cardiac pacemaker
CPT/HCPCS: 78452; 93017; 96374; A9500

== ENCOUNTER 2024-04-29 12:15 | Emergency (ER) | payer MEDICAID ==
[~2024-04-29] VITALS: Ht 185.4 cm; Wt 114.6 kg
[2024-04-29 12:30] VITALS: BP 145/90; PULSE 72; RESP 18; O2SAT 98
--- NOTE | 2024-04-29 12:39 | ED.PDOC ---
History of present illness HPI Comments 63 y/o M, with PMHX of ESRD and DM presents to the ED for CC of hyperglycemia. Patient states that he has been experiencing abnormally high blood sugar readings x2 days. Patient relays, that dialysis clinic called to inform him of a 700 blood sugar check on 04/27/24. Patient states, that he checked his blood sugar this morning (04/29/24) and received readings of 400 and 460. Patient comments on, receiving dialysis on M,W,F for which his complainant. Patient denies headache, dizziness, fatigue, dysuria, or hematuria. No other symptoms or modifiers at this time. Time Seen by MD: 12:30 Primary Care Provider: FABIOLA History of present illness: Nurses Notes, Medications, Allergies Allergies: Coded Allergies: NO KNOWN ALLERGIES (Unverified , 10/20/21) Home Meds Active Scripts Bumetanide (Bumetanide) 2 Mg Tab, 1 TAB PO BID, #60 TAB 5 Refills Prov:KYMBERLY LIZARRAGA MD 08/31/22 Apixaban Base (ELIQUIS) 5 Mg Tab, 5 MG PO BID, #60 TAB 5 Refills Prov:KYMBERLY LIZARRAGA MD 08/31/22 Insulin Regular (Human) (Novolin R) 100 Unit/Ml Inj, 0 UNITS SC TIDWM, #10 INJ TAKE INSULIN BASED ON YOUR SUGARS PER SLIDING SCALE MENTIONED WITH EACH MEAL Prov:PIOTR REGALADO MD 10/23/21 Blood Glucose Monitoring Suppl (D-Care Glucometer Kit/Glu W/Device) 1 Kit Kit, KIT XX [facility], #1 Prov:PIOTR REGALADO MD 10/22/21 Lancets (Freestyle Lancets) Lancets Mis, BOX XX [facility], #120 Prov:PIOTR REGALADO MD 10/22/21 Atorvastatin Calcium (Lipitor) 40 Mg Tab, 1 TAB PO QPM for 30 Days, #30 TAB 1 Refill Prov:BRANDO CLAUDIO MD 09/10/19 Reported Medications Propranolol HCl (Propranolol Hydrochloride) 20 Mg Tab, 20 MG PO DAILY for ARRHYTHMIA, TAB 12/03/22 Digoxin (Digoxin) 125 Mcg Tab, 125 MCG PO DAILY for ARRHYTHMIA, TAB 12/03/22 Metoprolol Succinate (Metoprolol Succinate Er) 50 Mg Tab, 50 MG PO DAILY for HTN for 30 Days, MG 12/03/22 Sevelamer Carbonate (Sevelamer Carbonate) 800 Mg Tab, 2 TAB PO TID for DIALYSIS 09/13/22 Fluticasone Propionate (Nasal) (Fluticasone Propionate) 50 Mcg/Act Spr, 1 SPRAY SUSAN DAILY 08/25/22 Information Source: Patient Mode of Arrival: Ambulatory Timing: Days Duration: Since onset Prehospital treatment: None [place]: None History of: Diabetes Modifying factors: Nothing Associated signs and symptoms: None Past Medical History PAST MEDICAL HISTORY: AFIB, Anemia, CHF, CKF, DM, ESRD, High Lipids, HTN, UTI'S Surgical History: Unknown Family History Family History: Reviewed,noncontributory to illness Social History Smoker: Non-Smoker Alcohol: Denies ETOH Use Drugs: Denies Drug Use Lives In: Home Constitutional: denies: chills, diaphoresis, fatigue, fever, malaise, sweats, weakness, others EENTM: denies: blurred vision, double vision, ear bleeding, ear discharge, ear drainage, ear pain, ear ringing, eye pain, eye redness, hearing loss, mouth pain, mouth swelling, nasal discharge, nose bleeding, nose congestion, nose pain, photophobia, tearing, throat pain, throat swelling, voice changes, others Respiratory: denies: cough, hemoptysis, orthopnea, SOB at rest, shortness of breath, SOB with excertion, stridor, wheezing, others Cardiovascular: denies: chest pain, dizzy spells, diaphoresis, Dyspnea on exertion, edema, irregular heart beat, left arm pain, lightheadedness, palpitations, PND, syncope, others Gastrointestinal: denies: abdomen distended, abdominal pain, blood streaked bowels, constipated, diarrhea, dysphagia, difficulty swallowing, hematemesis, melena, nausea, poor appetite, poor fluid intake, rectal bleeding, rectal pain, vomiting, others Genitourinary: denies: burning, dysuria, flank pain, frequency, hematuria, incontinence, penile discharge, penile sore, pain, testicle pain, testicle swelling, urgency, others Neurological: denies: dizziness, fainting, headache, left sided numbness, left sided weakness, numbness, paresthesia, pre-existing deficit, right sided numbness, right sided weakness, seizure, speech problems, tingling, tremors, weakness, others Musculoskeletal: denies: back pain, gout, joint pain, joint swelling, muscle pain, muscle stiffness, neck pain, others Integumetry: denies: bruises, change in color, change in hair/nails, dryness, laceration, lesions, lumps, rash, wounds, others Allergic/Immunocompromised: denies: Difficulty Healing, Frequent Infections, Hi ves, Itching, others Hematologic/Lymphatic: denies: anemia, blood clots, easy bleeding, easy bruising, swollen glands, others Endocrine: denies: excessive hunger, excessive sweating, excessive thirst, excessive urination, flushing, intolerance to cold, intolerance to heat, unexplained weight gain, unexplained weight loss, others Psychiatric: denies: anxiety, bipolar disorder, depression, hopeless, panic disorder, schizophrenia, sleepless, suicidal, others All Other Systems: Reviewed and Negative Physical Exam General Appearance: Moderate Distress HEENT: Normal ENT Inspection, Pharynx Normal, TMs Normal Neck: Full Range of Motion, Non-Tender, Normal, Normal Inspection Respiratory: Chest Non-Tender, Lungs Clear, No Accessory Muscle Use, No Respiratory Distress, Normal Breath Sounds Cardiovascular: No Edema, No JVD, No Murmur, No Gallop, Normal Peripheral Pulses, Regular Rate/Rhythm Breast Exam: Deferred Gastrointestinal: No Organomegaly, Non Tender, No Pulsatile Mass, Normal Bowel Sounds, Soft Genitalia: Deferred Pelvic: Deferred Rectal: Deferred Extremities: No calf tenderness, Normal capillary refill, Normal inspection, Normal range of motion, Non-tender, No pedal edema Musculoskeletal : Apperance: Normal Neurologic: Alert, financial investment adviser II-XII nml as Tested, No Motor Deficits, Normal Affect, Normal Mood, No Sensory Deficits Cerebellar Function: NOT DONE Reflexes: NOT DONE Skin: Dry, Normal Color, Warm Peripheral Pulses: 3+ Radial (R), 3+ Radial (L) Lymphatic: No Adenopathy Was a procedure done? Was a procedure done?: No Differential Diagnosis (DM) Differential Diagnosis: Dehydration, Electrolyte Abnormality, Hyperglycemia X-Ray, Labs, Meds, VS Vital Signs Date Time Temp Pulse Resp B/P (MAP) Pulse Ox O2 Delivery O2 Flow Rate FiO2 04/29/24 12:30 97.7 72 18 145/90 (108) 98 Lab Test 04/29/24 13:00 04/29/24 12:30 Range/Units White Blood Count 12.6 H 4.4-10.8 10^3/uL Red Blood Count 4.76 4.5-5.90 10^6/uL Hemoglobin 13.3 L 13.5-17.5 g/dL Hematocrit 39.3 L 41.0-53.0 % Mean Corpuscular Volume 82.6 80.0-100.0 fL Mean Corpuscular Hemoglobin 27.9 L 28.0-32.0 pg Mean Corpuscular Hemoglobin Concent 33.8 32.0-36.0 g/dL Red Cell Distribution Width 14.1 11.8-14.3 % Platelet Count 204 140-450 10^3/uL Mean Platelet Volume 9.3 6.9-10.8 fL Neutrophils (%) (Auto) 73.7 37.0-80.0 % Lymphocytes (%) (Auto) 16.5 10.0-50.0 % Monocytes (%) (Auto) 4.7 0.0-12.0 % Eosinophils (%) (Auto) 3.9 0.0-7.0 % Basophils (%) (Auto) 1.2 0.0-2.0 % Neutrophils # (Auto) 9.3 H 1.6-8.6 10 ^3/uL Lymphocytes # (Auto) 2.1 0.4-5.4 10 ^3/uL Monocytes # (Auto) 0.6 0-1.3 10 ^3/uL Eosinophils # (Auto) 0.5 0-0.8 10 ^3/uL Basophils # (Auto) 0.2 0-0.2 10 ^3/uL Nucleated Red Blood Cells 0.2 % Sodium Level 133 L 136-145 mmol/L Potassium Level 4.0 3.5-5.1 mmol/L Chloride Level 97 L 98-107 mmol/L Carbon Dioxide Level 26 20-31 mmol/L Anion Gap 10 5-15 Blood Urea Nitrogen 32 H 9-23 mg/dL Creatinine 3.05 H 0.700-1.30 mg/dL Glomerular Filtration Rate Calc 22 >90 mL/min BUN/Creatinine Ratio 10.5 10.0-20.0 Serum Glucose 411 *H 74-106 mg/dL Calcium Level 9.6 8.7-10.4 mg/dL POC Glucose 399 H 70-106 mg/dl Patient alert. States that he has been having high blood sugar. Vitals stable. Answering all questions. Abdomen is soft nontender. Establish intravenous access. Was given fluids. Was given insulin. Reviewed his history. Explained to the patient. Continue cardiac monitoring. Time of 1ST Reevaluation: 13:00 Reevaluation 1ST: Unchanged Patient Education/Counseling: Diagnosis, Treatment Family Education/Counseling: No Family Present Additional Information I reviewed the following notes from patient's past medical encounters: 12/11/22 DX:CHRONIC SYSTOLIC/DIASTOLIC HEART FAILURE The following tests were ordered, and results were reviewed by me: CBC, CMP I discussed treatment and results with medical personnel and: PATIENT Departure 1 Departure Time of Disposition: 12:52 Impression: Primary Impression: Uncontrolled diabetes mellitus Qualified Codes: E13.65 - Other specified diabetes mellitus with hyperglycemia Disposition: ADMITTED INPATIENT Admit to: Med Surg Condition: Guarded Critical Care Note Critical Care Time?: No Stability Stability form required: No Heart Score Heart Score: Heart Score Response (Comments) Value History N/A 0 EKG N/A 0 Age N/A 0 Risk Factors N/A 0 Troponin N/A 0 Total 0 I personally scribed for HALIMA DIAZ MD ([email or web address]) on 04/29/24 at 12:39. Electronically submitted by Tammy Moore ([email or web address]). I personally scribed for HALIMA DIAZ MD ([email or web address]) on 04/29/24 at 14:18. Electronically submitted by Tammy Moore ([email or web address]). HALIMA DIAZ MD Apr 29, 2024 12:39
[2024-04-29 13:36] LABS: Basophils # (auto) 0.2 10 ^3/uL (0-0.2); Basophils % (auto) 1.2 % (0.0-2.0); Eosinophils # (auto) 0.5 10 ^3/uL (0-0.8); Eosinophils % (auto) 3.9 % (0.0-7.0); Hematocrit 39.3 % (41.0-53.0); Hemoglobin 13.3 g/dL (13.5-17.5); Lymphocytes # (auto) 2.1 10 ^3/uL (0.4-5.4); Lymphocytes % (auto) 16.5 % (10.0-50.0); Mean Corpuscular Hemoglobin 27.9 pg (28.0-32.0); Mean Corpuscular Hgb Conc. 33.8 g/dL (32.0-36.0); Mean Corpuscular Volume 82.6 fL (80.0-100.0); Monocytes # (auto) 0.6 10 ^3/uL (0-1.3); Monocytes % (auto) 4.7 % (0.0-12.0); Neutrophils # (auto) 9.3 10 ^3/uL (1.6-8.6); Neutrophils % (auto) 73.7 % (37.0-80.0); Nucleated Red Blood Cells % 0.2 %; Platelet Count (auto) 204 10^3/uL (140-450); Red Blood Cells 4.76 10^6/uL (4.5-5.90); Red Cell Distribution Width 14.1 % (11.8-14.3); White Blood Cell 12.6 10^3/uL (4.4-10.8)
[2024-04-29 13:57] LABS: Anion Gap 10 (5-15); Calcium 9.6 mg/dL (8.7-10.4); Carbon Dioxide 26 mmol/L (20-31)
[2024-04-29 14:02] LABS: BUN/Creatinine Ratio 10.5 (10.0-20.0)
[2024-04-29 14:03] LABS: Blood Urea Nitrogen 32 mg/dL (9-23); Chloride 97 mmol/L (98-107); Sodium 133 mmol/L (136-145)
[2024-04-29 14:05] LABS: Glucose 411 mg/dL (74-106)
== END 2024-04-29 16:45 | disposition left against medical advice (07) ==
LOC: ER 12:15
DX: I13.2 Hypertensive heart and chronic kidney disease with heart failure and with stage 5 chronic kidney disease, or end stage renal disease (principal); E11.22 Type 2 diabetes mellitus with diabetic chronic kidney disease; N18.6 End stage renal disease; I50.9 Heart failure, unspecified; E11.65 Type 2 diabetes mellitus with hyperglycemia; I48.91 Unspecified atrial fibrillation; E78.5 Hyperlipidemia, unspecified
CPT/HCPCS: 36415; 80048; 82962; 85025

== ENCOUNTER 2025-02-20 06:51 | Inpatient (IN) | payer MEDICAID ==
[~2025-02-20] VITALS: Ht 175.3 cm; Wt 117.3 kg
--- NOTE | 2025-02-20 08:05 | ED.PDOC ---
History of Present Illness HPI Comments This is a 64 year-old male who presents to the ED via EMS with a chief complaint of general weakness and headache for X2 days. Patient states he is on dialysis, M W F, but has not gone the past X2 days. Patient has a PMHx of HTN and DM. Per EMS, patients blood glucose levels were 200 on scene. There are no further complaints or modifying factors at this time. Time Seen by MD: 07:35 Primary Care Provider: EDVIN Reviewed Notes: Oil Distributor Notes, Medications, Allergies Allergies: Coded Allergies: NO KNOWN ALLERGIES (Unverified , 10/20/21) Home Meds Active Scripts Bumetanide (Bumetanide) 2 Mg Tab, 1 TAB PO BID, #60 TAB 5 Refills Prov:KYMBERLY LIZARRAGA MD 08/31/22 Apixaban Base (ELIQUIS) 5 Mg Tab, 5 MG PO BID, #60 TAB 5 Refills Prov:KYMBERLY LIZARRAGA MD 08/31/22 Insulin Regular (Human) (Novolin R) 100 Unit/Ml Inj, 0 UNITS SC TIDWM, #10 INJ TAKE INSULIN BASED ON YOUR SUGARS PER SLIDING SCALE MENTIONED WITH EACH MEAL Prov:PIOTR REGALADO MD 10/23/21 Blood Glucose Monitoring Suppl (D-Care Glucometer Kit/Glu W/Device) 1 Kit Kit, KIT XX ACHS, #1 Prov:PIOTR REGALADO MD 10/22/21 Lancets (Freestyle Lancets) Lancets Mis, BOX XX [facility], #120 Prov:PIOTR REGALADO MD 10/22/21 Atorvastatin Calcium (Lipitor) 40 Mg Tab, 1 TAB PO QPM for 30 Days, #30 TAB 1 Refill Prov:BRANDO CLAUDIO MD 09/10/19 Reported Medications Propranolol HCl (Propranolol Hydrochloride) 20 Mg Tab, 20 MG PO DAILY for ARRHYTHMIA, TAB 12/03/22 Digoxin (Digoxin) 125 Mcg Tab, 125 MCG PO DAILY for ARRHYTHMIA, TAB 12/03/22 Metoprolol Succinate (Metoprolol Succinate Er) 50 Mg Tab, 50 MG PO DAILY for HTN for 30 Days, MG 12/03/22 Sevelamer Carbonate (Sevelamer Carbonate) 800 Mg Tab, 2 TAB PO TID for DIALYSIS 09/13/22 Fluticasone Propionate (Nasal) (Fluticasone Propionate) 50 Mcg/Act Spr, 1 SPRAY SUSAN DAILY 08/25/22 Information Source: Emergency Med Personnel Mode of Arrival: EMS Severity: Moderate Timing: Days Duration: Since onset Past Medical History PAST MEDICAL HISTORY: AFIB, Anemia, CHF, CKF, DM, ESRD, High Lipids, HTN, UTI'S Surgical History: Unknown Family History Family History: Reviewed,noncontributory to illness Social History Smoker: Non-Smoker Alcohol: Denies ETOH Use Drugs: Denies Drug Use Lives In: Home Constitutional: reports: weakness; denies: chills, diaphoresis, fatigue, fever, malaise, sweats, others EENTM: denies: blurred vision, double vision, ear bleeding, ear discharge, ear drainage, ear pain, ear ringing, eye pain, eye redness, hearing loss, mouth pain, mouth swelling, nasal discharge, nose bleeding, nose congestion, nose pain, photophobia, tearing, throat pain, throat swelling, voice changes, others Respiratory: denies: cough, hemoptysis, orthopnea, SOB at rest, shortness of breath, SOB with excertion, stridor, wheezing, others Cardiovascular: denies: chest pain, dizzy spells, diaphoresis, Dyspnea on exertion, edema, irregular heart beat, left arm pain, lightheadedness, palpitations, PND, syncope, others Gastrointestinal: denies: abdomen distended, abdominal pain, blood streaked bowels, constipated, diarrhea, dysphagia, difficulty swallowing, hematemesis, melena, nausea, poor appetite, poor fluid intake, rectal bleeding, rectal pain, vomiting, others Genitourinary: denies: burning, dysuria, flank pain, frequency, hematuria, incontinence, penile discharge, penile sore, pain, testicle pain, testicle swelling, urgency, others Neurological: reports: headache; denies: dizziness, fainting, left sided numbness, left sided weakness, numbness, paresthesia, pre-existing deficit, right sided numbness, right sided weakness, seizure, speech problems, tingling, tremors, weakness, others Musculoskeletal: denies: back pain, gout, joint pain, joint swelling, muscle pain, muscle stiffness, neck pain, others Integumetry: denies: bruises, change in color, change in hair/nails, dryness, laceration, lesions, lumps, rash, wounds, others Allergic/Immunocompromised: denies: Difficulty Healing, Frequent Infections, Hives, Itching, others Hematologic/Lymphatic: denies: anemia, blood clots, easy bleeding, easy bruising, swollen glands, others Endocrine: denies: excessive hunger, excessive sweating, excessive thirst, excessive urination, flushing, intolerance to cold, intolerance to heat, unexplained weight gain, unexplained weight loss, others Psychiatric: denies: anxiety, bipolar disorder, depression, hopeless, panic disorder, schizophrenia, sleepless, suicidal, others All Other Systems: Reviewed and Negative Physical Exam General Appearance: Moderate Distress HEENT: Normal ENT Inspection, Pharynx Normal, TMs Normal Neck: Full Range of Motion, Non-Tender, Normal, Normal Inspection Respiratory: Chest Non-Tender, Lungs Clear, No Accessory Muscle Use, No Respiratory Distress, Normal Breath Sounds Cardiovascular: No Edema, No JVD, No Murmur, No Gallop, Normal Peripheral Pulses, Regular Rate/Rhythm Breast Exam: Deferred Gastrointestinal: No Organomegaly, Non Tender, No Pulsatile Mass, Normal Bowel Sounds, Soft Genitalia: Deferred Pelvic: Deferred Rectal: Deferred Extremities: No calf tenderness, Normal capillary refill, Normal inspection, Normal range of motion, Non-tender, No pedal edema Musculoskeletal : Apperance: Normal Neurologic: Alert, suppression crew leader II-XII nml as Tested, No Motor Deficits, Normal Affect, Normal Mood, No Sensory Deficits Cerebellar Function: Normal Reflexes: Normal Skin: Dry, Normal Color, Warm Peripheral Pulses: 3+ Radial (R), 3+ Radial (L) Lymphatic: No Adenopathy Was a procedure done? Was a procedure done?: No Differential Dx Considerations may include: Anemia Electrolyte imbalance X-Ray, Labs, Meds, VS Vital Signs Date Time Temp Pulse Resp B/P (MAP) Pulse Ox O2 Delivery O2 Flow Rate FiO2 02/20/25 12:06 98.5 88 17 101/60 (74) 97 98.5 02/20/25 10:03 101 13 97 Room Air 02/20/25 10:03 98.8 101 13 106/63 (77) 97 98.8 02/20/25 09:33 98.9 101 15 138/89 100 98.9 Lab Test 02/20/25 09:03 Range/Units White Blood Count 4.8 4.4-10.8 10^3/uL Red Blood Count 5.24 4.5-5.90 10^6/uL Hemoglobin 14.7 13.5-17.5 g/dL Hematocrit 44.4 41.0-53.0 % Mean Corpuscular Volume 84.7 80.0-100.0 fL Mean Corpuscular Hemoglobin 28.0 28.0-32.0 pg Mean Corpuscular Hemoglobin Concent 33.0 32.0-36.0 g/dL Red Cell Distribution Width 14.5 H 11.8-14.3 % Platelet Count 106 L 140-450 10^3/uL Mean Platelet Volume 9.1 6.9-10.8 fL Neutrophils (%) (Auto) 81.5 H 37.0-80.0 % Lymphocytes (%) (Auto) 8.5 L 10.0-50.0 % Monocytes (%) (Auto) 8.7 0.0-12.0 % Eosinophils (%) (Auto) 0.2 0.0-7.0 % Basophils (%) (Auto) 1.1 0.0-2.0 % Neutrophils # (Auto) 3.9 1.6-8.6 10 ^3/uL Lymphocytes # (Auto) 0.4 0.4-5.4 10 ^3/uL Monocytes # (Auto) 0.4 0-1.3 10 ^3/uL Eosinophils # (Auto) 0 0-0.8 10 ^3/uL Basophils # (Auto) 0.1 0-0.2 10 ^3/uL Nucleated Red Blood Cells 0.3 % Sodium Level 135 L 136-145 mmol/L Potassium Level 4.4 3.5-5.1 mmol/L Chloride Level 102 98-107 mmol/L Carbon Dioxide Level 23 20-31 mmol/L Anion Gap 10 5-15 Blood Urea Nitrogen 38 H 9-23 mg/dL Creatinine 3.26 H 0.700-1.30 mg/dL Glomerular Filtration Rate Calc 21 >90 mL/min BUN/Creatinine Ratio 11.7 10.0-20.0 Serum Glucose 208 H 74-106 mg/dL Calcium Level 8.6 L 8.7-10.4 mg/dL Troponin I High Sensitivity 677 *H </=54 ng/L Patient alert. Came in because of generalized weakness. Hearing voices. Blood sugar elevated pain Cardiac marker elevated. BUN creatinine elevated. Denies chest pain. WBC within normal limits. Hemoglobin within normal limits. Nephrology consultation. Explained to the patient. Time of 1ST Reevaluation: 08:32 Reevaluation 1ST: Unchanged Patient Education/Counseling: Diagnosis, Treatment Family Education/Counseling: No Family Present SEPSIS Sepsis Screen Physician Orders Chest Portable (02/20/25 08:19) *Dr. Roland [facility] (02/20/25 08:19) Vital Signs Date Time Temp Pulse Resp B/P (MAP) Pulse Ox O2 Delivery O2 Flow Rate FiO2 02/20/25 12:06 98.5 88 17 101/60 (74) 97 98.5 02/20/25 10:03 101 13 97 Room Air 02/20/25 10:03 98.8 101 13 106/63 (77) 97 98.8 02/20/25 09:33 98.9 101 15 138/89 100 98.9 Laboratory Tests Test 02/20/25 09:03 White Blood Count 4.8 10^3/uL (4.4-10.8) Departure 1 Departure Time of Disposition: 12:18 Impression: Primary Impression: End stage chronic kidney disease Additional Impressions: Generalized weakness Uncontrolled diabetes mellitus Qualified Codes: E13.65 - Other specified diabetes mellitus with hyperglycemia Demand ischemia Disposition: ADMITTED INPATIENT Admit to: Med Surg Condition: Guarded Critical Care Note Critical Care Time?: Yes (90 min-critical care time only) Stability Stability form required: No Heart Score Heart Score: Heart Score Response (Comments) Value History N/A 0 EKG N/A 0 Age N/A 0 Risk Factors N/A 0 Troponin N/A 0 Total 0 I personally scribed for HALIMA DIAZ MD ([email or web address]) on 02/20/25 at 08:05. Electronically submitted by Yvonne Starr ([email or web address]). HALIMA DIAZ MD Feb 20, 2025 08:05
[2025-02-20 09:15] LABS: Hematocrit 44.4 % (41.0-53.0); Hemoglobin 14.7 g/dL (13.5-17.5); Mean Corpuscular Hemoglobin 28.0 pg (28.0-32.0); Mean Corpuscular Volume 84.7 fL (80.0-100.0); Nucleated Red Blood Cells % 0.3 %
--- NOTE | 2025-02-20 09:19 | DVH ---
CHEST RADIOGRAPH Indication: sob Technique: Single frontal view of the chest was obtained. Comparison: XY CHEST PORTABLE on DOS: 12/11/22 Findings: Right central venous catheter. Left chest wall pacemaker. Pulmonary vascular congestion. No significant pleural effusion. No pneumothorax. Stable cardiomediastinal silhouette. IMPRESSION: Pulmonary vascular congestion.
[2025-02-20 09:24] LABS: Chloride 102 mmol/L (98-107); Potassium 4.4 mmol/L (3.5-5.1)
[2025-02-20 09:25] LABS: Anion Gap 10 (5-15); Carbon Dioxide 23 mmol/L (20-31)
[2025-02-20 09:29] LABS: Calcium 8.6 mg/dL (8.7-10.4); Sodium 135 mmol/L (136-145)
[2025-02-20 09:31] LABS: BUN/Creatinine Ratio 11.7 (10.0-20.0)
[2025-02-20 09:45] LABS: Blood Urea Nitrogen 38 mg/dL (9-23); Glucose 208 mg/dL (74-106)
[2025-02-20] MEDS ORDERED: DOCUSATE SOD 100 MG CAP PO PRN (13:00)
[2025-02-20] MEDS ORDERED: ONDANSETRON HCL 4 MG/2 ML VIAL IV PRN (13:00)
[2025-02-20] MEDS ORDERED: NITROGLYCERIN 0.4 MG SL TAB SL PRN (13:00)
[2025-02-20] MEDS ORDERED: MORPHINE SULFATE INJ 2 MG/ml SYRG IV PRN (13:00)
[2025-02-20] MEDS ORDERED: DEXTROSE (50%) 50ML SYRG IV PRN (13:00)
--- NOTE | 2025-02-20 13:00 | DVHHP2 ---
History of Present Illness Reason for Visit: generalized weakness History of Present Illness 64-year-old male with past medical history of hypertension, diabetes, anemia, and end-stage renal disease on Saturday/Saturday/Saturday dialysis schedule, hyperlipidemia, and prior UTI, presents today with complaints of generalized weakness and frontal headache. Patient reports that dialysis was provided on Saturday instead of the usual Saturday due to the holiday schedule, but he missed his Saturday session. He states that ever since Thanksgiving dinner, he has not felt well, endorsing persistent fatigue, weakness, and being bedbound. He denies chest pain, shortness of breath, fever, vomiting, or any urinary symptoms i ncluding hematuria. He endorses a frontal headache, describing it as stabbing in nature but not consistent with a thunderclap-type headache. He does receive dialysis through Dr. Vilch[facility]. On evaluation, patient appeared weak. Labs from the ED show CBC unremarkable, but platelet count was low at 106. CMP showed sodium 135, potassium 3.26, BUN 38, creatinine 8.6, glucose 108. Chest X-ray demonstrated pulmonary vascular congestion with a pacemaker and permacath in the right chest wall. Given his presentation and recent missed dialysis, he will require dialysis in the hospital. Physical therapy will also be consulted to evaluate for deconditioning. He will be admitted for further medical management and dialysis. Past Medical History see HPI above Past Surgical History see HPI above Family History Reviewed, non-contributory to the management of this case. Past Social History The patient lives at home, denies smoking, alcohol or illicit drugs abuse. Review of Systems Constitutional: Yes: Weakness; No: Fever, Chills, Sweats, Malaise, Other Eyes: No: Pain, Vision change, Conjunctivae inflammation, Eyelid inflammation, Other, Redness ENT: No: Ear pain, Ear discharge, Nose pain, Nose discharge, Nose congestion, Mouth pain, Mouth swelling, Throat pain, Throat swelling, Other Respiratory: No: Cough, Dry, Shortness of breath, SOB with excertion, Wheezing, Hemoptysis, Pleuritic Pain, Sputum, Wheezing, Other Cardiovascular: No: Chest Pain, Palpitations, Orthopnea, Paroxysmal Noc. Dyspnea, Edema, Lt Headedness, Other Gastrointestinal: No: Nausea, Vomiting, Abdominal Pain, Diarrhea, Constipation, Melena, Hematochezia, Other Genitourinary: No Dysuria, No Frequency, No Incontinence, No Hematuria, No Retention, No Other Musculoskeletal: No: other, neck pain, shoulder pain, arm pain, back pain, hand pain, leg pain, foot pain Skin: No: Rash, Lesions, Jaundice, Bruising, Other Neurological: Weakness; No: Numbness, Incoordination, Change in speech, Co nfusion, Seizures, Other Allergies: Coded Allergies: NO KNOWN ALLERGIES (Unverified , 10/20/21) Exam Vital Signs Vital Signs Date Time Temp Pulse Resp B/P (MAP) Pulse Ox O2 Delivery O2 Flow Rate FiO2 02/20/25 12:06 98.5 88 17 101/60 (74) 97 98.5 02/20/25 10:03 Room Air General Appearance: Alert, Oriented X3, Cooperative, No acute distress HEENT: Atraumatic, PERRLA, EOMI, Mucous membr. moist/pink Respiratory: Clear to auscultation, Normal air movement Cardiovascular: Regular rate, Normal S1, Normal S2, No murmurs, Other (right chest wall permacath ) Abdominal: Normal bowel sounds, Soft, No tenderness, No hepatospenomegaly, No masses Extremities: No clubbing, No cyanosis, No edema, Normal pulses, No tenderness/swelling Skin: No rashes, No breakdown, No significant lesion Neuro: Normal gait, Normal speech, Strength at 5/5 X4 ext, Normal tone, Sensation intact, Cranial nerves 3-12 NL Psych/Mental Status: Mental status NL, Mood NL Labs/Xrays cxr pulmonary vascular congestion, pacemaker permacath I reviewed labs, imaging CT scan abdomen pelvis, EKG and all diagnostic studies on this patient from ED records and the medical chart Labs Test 02/20/25 09:03 Range/Units White Blood Count 4.8 4.4-10.8 10^3/uL Red Blood Count 5.24 4.5-5.90 10^6/uL Hemoglobin 14.7 13.5-17.5 g/dL Hematocrit 44.4 41.0-53.0 % Mean Corpuscular Volume 84.7 80.0-100.0 fL Mean Corpuscular Hemoglobin 28.0 28.0-32.0 pg Mean Corpuscular Hemoglobin Concent 33.0 32.0-36.0 g/dL Red Cell Distribution Width 14.5 H 11.8-14.3 % Platelet Count 106 L 140-450 10^3/uL Mean Platelet Volume 9.1 6.9-10.8 fL Neutrophils (%) (Auto) 81.5 H 37.0-80.0 % Lymphocytes (%) (Auto) 8.5 L 10.0-50.0 % Monocytes (%) (Auto) 8.7 0.0-12.0 % Eosinophils (%) (Auto) 0.2 0.0-7.0 % Basophils (%) (Auto) 1.1 0.0-2.0 % Neutrophils # (Auto) 3.9 1.6-8.6 10 ^3/uL Lymphocytes # (Auto) 0.4 0.4-5.4 10 ^3/uL Monocytes # (Auto) 0.4 0-1.3 10 ^3/uL Eosinophils # (Auto) 0 0-0.8 10 ^3/uL Basophils # (Auto) 0.1 0-0.2 10 ^3/uL Nucleated Red Blood Cells 0.3 % Sodium Level 135 L 136-145 mmol/L Potassium Level 4.4 3.5-5.1 mmol/L Chloride Level 102 98-107 mmol/L Carbon Dioxide Level 23 20-31 mmol/L Anion Gap 10 5-15 Blood Urea Nitrogen 38 H 9-23 mg/dL Creatinine 3.26 H 0.700-1.30 mg/dL Glomerular Filtration Rate Calc 21 >90 mL/min BUN/Creatinine Ratio 11.7 10.0-20.0 Serum Glucose 208 H 74-106 mg/dL Calcium Level 8.6 L 8.7-10.4 mg/dL Troponin I High Sensitivity 677 *H </=54 ng/L SEPSIS Sepsis Screen Date sepsis recognized/suspect: Feb 20, 2025 Time Sepsis recognized/suspect: 719 Recent Procedure: No On Antibiotic Therapy: No Respiratory Rate >20: No Heart Rate >90: No Temp<36 C (96.8 F) or >38.3 C: No SBP <90 or MAP <65 mmHG: No New Acute Mental Status Change: No Is the patient on CPAP, BIPAP,: No Physician Orders Chest Portable (02/20/25 08:19) *Dr. Roland [facility] (02/20/25 08:19) Vital Signs Date Time Temp Pulse Resp B/P (MAP) Pulse Ox O2 Delivery O2 Flow Rate FiO2 02/20/25 12:06 98.5 88 17 101/60 (74) 97 98.5 02/20/25 12:00 88 02/20/25 10:03 101 13 97 Room Air 02/20/25 10:03 98.8 101 13 106/63 (77) 97 98.8 02/20/25 09:33 98.9 101 15 138/89 100 98.9 Laboratory Tests Test 02/20/25 09:03 White Blood Count 4.8 10^3/uL (4.4-10.8) Assessment/Plan Assessment/Plan 64-year-old male with ESRD, missed dialysis, generalized weakness, and frontal headache. Admitted for evaluation and management of volume overload and missed dialysis session. acute Volume overload / missed dialysis (ESRD on MWF schedule) End-stage renal disease Admit to medicine for inpatient dialysis Coordinate with nephrology (Dr. [facility]) Monitor electrolytes closely Daily weights strict I/Os acute Generalized weakness PT consult for mobility and strength assessment fall precautions ordered ua cxr no infection acute Frontal headache ordered Ct scan brain fu results Monitor symptoms Reassess after dialysis acute Thrombocytopenia unspecified No active bleeding noted Monitor platelet trend hold heparin if plt count less than 1000,000 acute Pulmonary vascular congestion Likely secondary to fluid overload Treat with dialysis and volume removal Monitor O2 saturation chronic problems Hypertension Essential hypertension Continue antihypertensives as tolerated Type 2 Diabetes Mellitus Sliding scale insulin Hyperlipidemia Continue statin if on home regimen End-stage renal disease on dialysis Anemia FEN / PPx Fluids: Monitor intake/output Electrolytes: Daily labs (BMP), especially K, Na, BUN/Cr Nutrition: Regular renal diet; DVT Prophylaxis: SCDs heparin GI Prophylaxis: protonix Disposition Admit to medicine service Coordinate with nephrology for dialysis session PT consult for weakness and mobility Reassess headache and mental status post-dialysis Plan discussed with: Patient Date of Service: Feb 20, 2025 Billing Provider: TERESA LEON DNP Common Visit Codes: [id number] INP/OBS CARE (HIGH) TERESA LEON DNP Feb 20, 2025 13:00
--- NOTE | 2025-02-20 13:52 | DVH ---
CT HEAD WITHOUT CONTRAST Indication: acute headache EXAM DATE: 02/20/2025 01:24 PM COMPARISON: CT HEAD WITHOUT CONTRAST on DOS: 09/24/22, CT HEAD WITHOUT CONTRAST on DOS: 09/18/22, CT HEAD WITHOUT CONTRAST on DOS: 09/14/22 TECHNIQUE: CT of the head without intravenous contrast. RADIATION DOSE: CTDIvol: 56.0 mGy, DLP: 897.71 mGy*cm FINDINGS: There is no intracranial hemorrhage. There is no extra-axial fluid, mass, mass effect or midline shift. The ventricles are midline and normal in size. Basilar cisterns are patent. Mild periventricular and subcortical white matter chronic microvascular ischemic changes. Mild global cerebral volume loss Mastoids well pneumatized. Mucosal thickening of the ethmoids, bilateral maxillary sinuses.. Imaged portion of the orbits are unremarkable. IMPRESSION: No intracranial hemorrhage or mass effect. Mild chronic microvascular ischemic changes. Mild global cerebral volume loss.
[2025-02-20 14:13] LABS: Magnesium 2.1 mg/dL (1.6-2.6)
[2025-02-20] MEDS ORDERED: SEVELAMER 800 MG TAB PO SCH (18:00)
[2025-02-20] MEDS: ACCU-CHEK COMFORT CURVE STRIP VI SCH (18:23)
[2025-02-20] MEDS: BUMETANIDE 1mg/4ml VIAL (0.25mg/ml) IV SCH (18:28)
[2025-02-20] MEDS: InsuLIN REG 1unit/0.01ml Soln (100units/ml) SC SCH (18:28)
[2025-02-20] MEDS: SEVELAMER 800 MG TAB PO ONE (18:41)
[2025-02-20 18:45] VITALS: RESP 16; O2SAT 97
[2025-02-20] MEDS ORDERED: AMIO200T33 PO (18:46)
[2025-02-20 18:49] VITALS: BP 116/75; PULSE 97; RESP 16; TEMP 98.2; O2SAT 97
[2025-02-20 20:00] VITALS: PULSE 95; RESP 18; O2SAT 95
[2025-02-20 21:00] VITALS: BP 138/67; PULSE 95; RESP 16; TEMP 97.9; O2SAT 97
[2025-02-20] MEDS: APIXABAN 5 MG TAB PO SCH (22:13)
[2025-02-20] MEDS: ATORVASTATIN 20 MG TAB PO SCH (22:13)
[2025-02-21 01:00] VITALS: BP 135/56; PULSE 95; RESP 16; TEMP 98.4; O2SAT 98
[2025-02-21 05:00] VITALS: BP 85/52; PULSE 81; RESP 16; TEMP 98.1; O2SAT 96
[2025-02-21 06:00] VITALS: BP 121/75; PULSE 80; RESP 18; TEMP 98.1; O2SAT 96
[2025-02-21 06:31] LABS: Hematocrit 40.7 % (41.0-53.0); Hemoglobin 13.5 g/dL (13.5-17.5); Mean Corpuscular Hemoglobin 28.0 pg (28.0-32.0); Mean Corpuscular Volume 84.5 fL (80.0-100.0); Nucleated Red Blood Cells % 0.2 %
[2025-02-21 06:59] LABS: Alanine Aminotransferase 26 U/L (7-40); Anion Gap 11 (5-15); BUN/Creatinine Ratio 13.5 (10.0-20.0); Carbon Dioxide 21 mmol/L (20-31); Chloride 103 mmol/L (98-107); Potassium 3.6 mmol/L (3.5-5.1); Total Protein 6.3 g/dL (5.7-8.2)
[2025-02-21 07:00] LABS: Albumin 3.3 g/dL (3.2-4.8); Bilirubin, Total 0.9 mg/dL (0.2-1.0)
[2025-02-21 07:06] LABS: Alkaline Phosphatase 124 U/L (46-116); Blood Urea Nitrogen 42 mg/dL (9-23); Calcium 8.3 mg/dL (8.7-10.4); Glucose 190 mg/dL (74-106); Sodium 135 mmol/L (136-145)
[2025-02-21 08:00] VITALS: PULSE 83; RESP 16; O2SAT 99
[2025-02-21] MEDS: SEVELAMER 800 MG TAB PO SCH (08:22)
[2025-02-21 09:00] VITALS: BP 114/72; PULSE 83; RESP 16; TEMP 97.4; O2SAT 95
[2025-02-21] MEDS: PROPRANOLOL HCL 20 MG TAB PO SCH (09:58)
[2025-02-21] MEDS: DIGOXIN 0.125 MG TAB PO SCH (09:59)
[2025-02-21] MEDS ORDERED: METOPROLOL SUCCINATE XL 50 MG TAB PO SCH (10:00)
--- NOTE | 2025-02-21 11:34 | DVHINCON2 ---
Date of service: Feb 21, 2025 Reason for Consultation End-stage renal disease History of Present Illness 64-year-old male with past medical history of end-stage renal disease on hemodialysis, hypertension, coronary artery disease, diabetes patient presents to the hospital complaining of headache. He was admitted for this reason nephrology is consulted for dialysis. Patient reports headache as resolved since admission patient is status post CT head which was unremarkable patient's blood pressure during hospitalization has been within normal limits Past Surgical History avf Allergies: Coded Allergies: NO KNOWN ALLERGIES (Unverified , 10/20/21) Home Meds Active Scripts Bumetanide (Bumetanide) 2 Mg Tab, 1 TAB PO BID, #60 TAB 5 Refills Prov:KYMBERLY LIZARRAGA MD 08/31/22 Apixaban Base (ELIQUIS) 5 Mg Tab, 5 MG PO BID, #60 TAB 5 Refills Prov:KYMBERLY LIZARRAGA MD 08/31/22 Insulin Regular (Human) (Novolin R) 100 Unit/Ml Inj, 0 UNITS SC TIDWM, #10 INJ TAKE INSULIN BASED ON YOUR SUGARS PER SLIDING SCALE MENTIONED WITH EACH MEAL Prov:PIOTR REGALADO MD 10/23/21 Blood Glucose Monitoring Suppl (D-Care Glucometer Kit/Glu W/Device) 1 Kit Kit, KIT [facility], #1 Prov:PIOTR REGALADO MD 10/22/21 Lancets (Freestyle Lancets) Lancets Mis, BOX XX [facility], #120 Prov:PIOTR REGALADO MD 10/22/21 Atorvastatin Calcium (Lipitor) 40 Mg Tab, 1 TAB PO QPM for 30 Days, #30 TAB 1 Refill Prov:BRANDO CLAUDIO MD 09/10/19 Reported Medications Amiodarone Hcl (Amiodarone Hcl) 200 Mg Tab, 200 TAB PO DAILY, #90 TAB 1 Refill 02/20/25 Propranolol HCl (Propranolol Hydrochloride) 20 Mg Tab, 20 MG PO DAILY for ARRHYTHMIA, TAB 12/03/22 Digoxin (Digoxin) 125 Mcg Tab, 125 MCG PO DAILY for ARRHYTHMIA, TAB 12/03/22 Metoprolol Succinate (Metoprolol Succinate Er) 50 Mg Tab, 50 MG PO DAILY for HTN for 30 Days, MG 12/03/22 Sevelamer Carbonate (Sevelamer Carbonate) 800 Mg Tab, 2 TAB PO TID for DIALYSIS 09/13/22 Fluticasone Propionate (Nasal) (Fluticasone Propionate) 50 Mcg/Act Spr, 1 SPRAY SUSAN DAILY 08/25/22 Current Medications Current Medications Medications (Trade) Dose Ordered Sig/Misael Route PRN Reason Start Time Stop Time Status Last Admin Diagnostic Test (Pha) (Accu-Chek Comfort Curve T) 1 strip ACHS 02/20/25 17:00 02/21/25 06:54 Insulin Human Regular (InsuLIN R) ACHS SC 02/20/25 17:00 02/21/25 06:54 Dextrose 50 ml UD PRN IV Blood Sugar LESS THAN 60 02/20/25 13:00 Apixaban (Eliquis) 5 mg BID PO 02/20/25 22:00 02/21/25 09:58 Digoxin (Lanoxin Tablet) 0.125 mg DAILY PO 02/21/25 10:00 02/21/25 09:59 Metoprolol Succinate (Toprol Xl) 50 mg DAILY PO 02/21/25 10:00 Hold Propranolol HCl (Inderal Tablet) 20 mg DAILY PO 02/21/25 10:00 02/21/25 09:58 Atorvastatin Calcium (Lipitor) 40 mg HS PO 02/20/25 22:00 02/20/25 22:13 Sevelamer HCl (Renagel) 2 mg TIDWM PO 02/20/25 18:00 02/20/25 18:36 DC Bumetanide (Bumex Injection) 1 mg BIDD IV 02/20/25 18:00 02/20/25 18:28 Ondansetron HCl (Zofran) 4 mg Q4HP PRN IV NAUSEA / VOMITING 02/20/25 13:00 Docusate Sodium (Colace Capsule) 100 mg BIDPRN PRN PO FOR CONSTIPATION 02/20/25 13:00 Morphine Sulfate 2 mg Q4HPRN PRN IV SEVERE PAIN (7-10 PAIN SCALE) 02/20/25 13:00 Nitroglycerin (Ntrostat Sublingual) 0.4 mg Q5MINP PRN SL FOR CHEST PAIN 02/20/25 13:00 Sevelamer HCl (Renagel) 800 mg TIDWM PO 02/21/25 08:00 02/21/25 08:22 Family History: Cerebrovascular accident (CVA) G8 MOTHER FH: lung cancer G8 FATHER Pacemaker G8 MOTHER Review of Systems Headache H&P Exam Vital Signs/I&O Vital Sign Date Time Temp Pulse Resp B/P (MAP) Pulse Ox O2 Delivery O2 Flow Rate FiO2 02/21/25 09:59 83 02/21/25 09:58 114/72 02/21/25 09:00 97.4 16 95 97.4 02/21/25 08:00 Room Air* 0 21 Intake and Output 02/20/25 02/21/25 19:00 07:00 Intake Total 1490 ml Output Total 1700 ml Balance -210 ml Intake Oral 1490 ml Output Urine Total 1700 ml Physical Exam Middle-aged male Nonacute distress abdomen is soft No pitting edema left arm AV fistula positive thrill and bruit Right tunneled dialysis catheter No pitting edema No gross neurological deficits Lungs clear to auscultation Labs/Diagnostic Data Labs/Diagnostic Data Laboratory Tests Test 02/21/25 06:46 02/21/25 05:25 02/20/25 20:02 02/20/25 18:58 Range/Units POC Glucose 220 H 70-106 mg/dl White Blood Count 4.0 L 4.4-10.8 10^3/uL Red Blood Count 4.81 4.5-5.90 10^6/uL Hemoglobin 13.5 13.5-17.5 g/dL Hematocrit 40.7 L 41.0-53.0 % Mean Corpuscular Volume 84.5 80.0-100.0 fL Mean Corpuscular Hemoglobin 28.0 28.0-32.0 pg Mean Corpuscular Hemoglobin Concent 33.1 32.0-36.0 g/dL Red Cell Distribution Width 14.2 11.8-14.3 % Platelet Count 98 L 140-450 10^3/uL Mean Platelet Volume 9.5 6.9-10.8 fL Neutrophils (%) (Auto) 56.2 37.0-80.0 % Lymphocytes (%) (Auto) 24.9 10.0-50.0 % Monocytes (%) (Auto) 16.3 H 0.0-12.0 % Eosinophils (%) (Auto) 1.4 0.0-7.0 % Basophils (%) (Auto) 1.2 0.0-2.0 % Neutrophils # (Auto) 2.3 1.6-8.6 10 ^3/uL Lymphocytes # (Auto) 1.0 0.4-5.4 10 ^3/uL Monocytes # (Auto) 0.7 0-1.3 10 ^3/uL Eosinophils # (Auto) 0.1 0-0.8 10 ^3/uL Basophils # (Auto) 0.1 0-0.2 10 ^3/uL Nucleated Red Blood Cells 0.2 % Sodium Level 135 L 136-145 mmol/L Potassium Level 3.6 3.5-5.1 mmol/L Chloride Level 103 98-107 mmol/L Carbon Dioxide Level 21 20-31 mmol/L Anion Gap 11 5-15 Blood Urea Nitrogen 42 H 9-23 mg/dL Creatinine 3.10 H 0.700-1.30 mg/dL Glomerular Filtration Rate Calc 22 >90 mL/min BUN/Creatinine Ratio 13.5 10.0-20.0 Serum Glucose 190 H 74-106 mg/dL Calcium Level 8.3 L 8.7-10.4 mg/dL Total Bilirubin 0.9 0.2-1.0 mg/dL Aspartate Amino Transferase (AST) 27 13-40 U/L Alanine Aminotransferase (ALT) 26 7-40 U/L Alkaline Phosphatase 124 H 46-116 U/L Total Protein 6.3 5.7-8.2 g/dL Albumin 3.3 3.2-4.8 g/dL Troponin I High Sensitivity 527 *H 472 *H </=54 ng/L Test 02/20/25 18:22 02/20/25 09:03 Range/Units POC Glucose 221 H 70-106 mg/dl White Blood Count 4.8 4.4-10.8 10^3/uL Red Blood Count 5.24 4.5-5.90 10^6/uL Hemoglobin 14.7 13.5-17.5 g/dL Hematocrit 44.4 41.0-53.0 % Mean Corpuscular Volume 84.7 80.0-100.0 fL Mean Corpuscular Hemoglobin 28.0 28.0-32.0 pg Mean Corpuscular Hemoglobin Concent 33.0 32.0-36.0 g/dL Red Cell Distribution Width 14.5 H 11.8-14.3 % Platelet Count 106 L 140-450 10^3/uL Mean Platelet Volume 9.1 6.9-10.8 fL Neutrophils (%) (Auto) 81.5 H 37.0-80.0 % Lymphocytes (%) (Auto) 8.5 L 10.0-50.0 % Monocytes (%) (Auto) 8.7 0.0-12.0 % Eosinophils (%) (Auto) 0.2 0.0-7.0 % Basophils (%) (Auto) 1.1 0.0-2.0 % Neutrophils # (Auto) 3.9 1.6-8.6 10 ^3/uL Lymphocytes # (Auto) 0.4 0.4-5.4 10 ^3/uL Monocytes # (Auto) 0.4 0-1.3 10 ^3/uL Eosinophils # (Auto) 0 0-0.8 10 ^3/uL Basophils # (Auto) 0.1 0-0.2 10 ^3/uL Nucleated Red Blood Cells 0.3 % Sodium Level 135 L 136-145 mmol/L Potassium Level 4.4 3.5-5.1 mmol/L Chloride Level 102 98-107 mmol/L Carbon Dioxide Level 23 20-31 mmol/L Anion Gap 10 5-15 Blood Urea Nitrogen 38 H 9-23 mg/dL Creatinine 3.26 H 0.700-1.30 mg/dL Glomerular Filtration Rate Calc 21 >90 mL/min BUN/Creatinine Ratio 11.7 10.0-20.0 Serum Glucose 208 H 74-106 mg/dL Calcium Level 8.6 L 8.7-10.4 mg/dL Phosphorus Level 2.7 2.4-5.1 mg/dL Magnesium Level 2.1 1.6-2.6 mg/dL Troponin I High Sensitivity 677 *H </=54 ng/L Assessment End-stage renal disease on hemodialysis Admitted to the hospital for headache and rule out CVA, CT of the head is negative Hypertension controlled Coronary artery disease Patient is still has residual urinary output response to diuretics continue home oral Bumex Patient's blood pressure and electrolytes are within acceptable limits patient continue his outpatient dialysis schedule which is Saturday. If patient has no current workup then recommend dialysis outpatient tomorrow. We will continue dialysis inpatient should he remain admitted for additional workup Continue renal diet Continue patient's home medications including his beta austen and anticoagulation Plan discussed with: Patient MABEL ARGUELLES MD Feb 21, 2025 11:34
--- NOTE | 2025-02-21 12:31 | DVHPN2 ---
Changes from previous H/P or p: No Changes Eyes: No Pain, No Vision change, No Conjunctivae inflammation, No Eyelid inflammation, No Other, No Redness ENT: No Ear pain, No Ear discharge, No Nose pain, No Nose discharge, No Nose congestion, No Mouth pain, No Mouth swelling, No Throat pain, No Throat swelling, No Other Cardiovascular: No Chest Pain, No Palpitations, No Orthopnea, No Paroxysmal Noc. Dyspnea, No Edema, No Lt Headedness, No Other Respiratory: No Cough, No Dry, No Shortness of breath, No SOB with excertion, No Wheezing, No Hemoptysis, No Pleuritic Pain, No Sputum, No Other Gastrointestinal: No Nausea, No Vomiting, No Abdominal Pain, No Diarrhea, No Constipation, No Melena, No Hematochezia, No Other Genitourinary: No Dysuria, No Frequency, No Incontinence, No Hematuria, No Retention, No Other Musculoskeletal: No other, No neck pain, No shoulder pain, No arm pain, No back pain, No hand pain, No leg pain, No foot pain Skin: No Rash, No Lesions, No Jaundice, No Bruising, No Other Objective Vitals Vital Signs Date Time Temp Pulse Resp B/P (MAP) Pulse Ox O2 Delivery O2 Flow Rate FiO2 02/21/25 09:59 83 02/21/25 09:58 114/72 02/21/25 09:00 97.4 16 95 97.4 02/21/25 08:00 Room Air* 0 21 Intake/Output Intake and Output 02/21/25 07:00 Intake Total 1490 ml Output Total 1700 ml Balance -210 ml Intake Oral 1490 ml Output Urine Total 1700 ml Medications Current Medications Medications Dose Ordered Sig/Misael Route Start Time Stop Time Status Last Admin Dose Admin Diagnostic Test (Pha) 1 strip ACHS 02/20/25 17:00 02/21/25 06:54 1 STRIP Insulin Human Regular ACHS SC 02/20/25 17:00 02/21/25 06:54 4 UNITS Dextrose 50 ml UD PRN IV 02/20/25 13:00 Apixaban 5 mg BID PO 02/20/25 22:00 02/21/25 09:58 5 MG Digoxin 0.125 mg DAILY PO 02/21/25 10:00 02/21/25 09:59 0.125 MG Metoprolol Succinate 50 mg DAILY PO 02/21/25 10:00 Hold Propranolol HCl 20 mg DAILY PO 02/21/25 10:00 02/21/25 09:58 20 MG Atorvastatin Calcium 40 mg HS PO 02/20/25 22:00 02/20/25 22:13 40 MG Bumetanide 1 mg BIDD IV 02/20/25 18:00 02/20/25 18:28 1 MG Ondansetron HCl 4 mg Q4HP PRN IV 02/20/25 13:00 Docusate Sodium 100 mg BIDPRN PRN PO 02/20/25 13:00 Morphine Sulfate 2 mg Q4HPRN PRN IV 02/20/25 13:00 Nitroglycerin 0.4 mg Q5MINP PRN SL 02/20/25 13:00 Sevelamer HCl 800 mg TIDWM PO 02/21/25 08:00 02/21/25 08:22 800 MG Laboratory Results Laboratory Tests 02/21/25 05:25 Chemistry Test 02/21/25 05:25 Albumin 3.3 g/dL (3.2-4.8) Calcium Level 8.3 mg/dL (8.7-10.4) L Total Protein 6.3 g/dL (5.7-8.2) LFT Test 02/21/25 05:25 Alanine Aminotransferase (ALT) 26 U/L (7-40) Alkaline Phosphatase 124 U/L (46-116) H Aspartate Amino Transferase (AST) 27 U/L (13-40) Total Bilirubin 0.9 mg/dL (0.2-1.0) Labs and/or images reviewed: Labs reviewed by me, Image(s) reviewed by me Assessment/Plan Assessment/Plan End-stage renal disease on hemodialysis consult by appreciated cleared for discharge by nephrology Admitted to the hospital for headache and rule out CVA, CT of the head is negative Hypertension controlled History of Coronary artery disease Troponin 472, possibly secondary to ESRD, patient does not have any chest pain or shortness of breath and wants to be discharged today Plan discussed with: Patient Date of Service: Feb 21, 2025 Billing Provider: ROBERT GARCIA MD Common Visit Codes: [id number] INP/OBS CARE(HIGH) ROBERT GARCIA MD Feb 21, 2025 12:31
--- NOTE | 2025-02-21 12:36 | DVHDS2 ---
Discharge Summary Date of Admission Feb 20, 2025 at 12:55 Date of Discharge: Feb 21, 2025 Admitting Diagnosis Headache Wounds: None Labs/Diagnostic Data: Laboratory Results Test 02/21/25 06:46 02/21/25 05:25 02/20/25 20:02 02/20/25 09:03 POC Glucose 220 mg/dl (70-106) White Blood Count 4.0 10^3/uL (4.4-10.8) Red Blood Count 4.81 10^6/uL (4.5-5.90) Hemoglobin 13.5 g/dL (13.5-17.5) Hematocrit 40.7 % (41.0-53.0) Mean Corpuscular Volume 84.5 fL (80.0-100.0) Mean Corpuscular Hemoglobin 28.0 pg (28.0-32.0) Mean Corpuscular Hemoglobin Concent 33.1 g/dL (32.0-36.0) Red Cell Distribution Width 14.2 % (11.8-14.3) Platelet Count 98 10^3/uL (140-450) Mean Platelet Volume 9.5 fL (6.9-10.8) Neutrophils (%) (Auto) 56.2 % (37.0-80.0) Lymphocytes (%) (Auto) 24.9 % (10.0-50.0) Monocytes (%) (Auto) 16.3 % (0.0-12.0) Eosinophils (%) (Auto) 1.4 % (0.0-7.0) Basophils (%) (Auto) 1.2 % (0.0-2.0) Neutrophils # (Auto) 2.3 10 ^3/uL (1.6-8.6) Lymphocytes # (Auto) 1.0 10 ^3/uL (0.4-5.4) Monocytes # (Auto) 0.7 10 ^3/uL (0-1.3) Eosinophils # (Auto) 0.1 10 ^3/uL (0-0.8) Basophils # (Auto) 0.1 10 ^3/uL (0-0.2) Nucleated Red Blood Cells 0.2 % Sodium Level 135 mmol/L (136-145) Potassium Level 3.6 mmol/L (3.5-5.1) Chloride Level 103 mmol/L (98-107) Carbon Dioxide Level 21 mmol/L (20-31) Anion Gap 11 (5-15) Blood Urea Nitrogen 42 mg/dL (9-23) Creatinine 3.10 mg/dL (0.700-1.30) Glomerular Filtration Rate Calc 22 mL/min (>90) BUN/Creatinine Ratio 13.5 (10.0-20.0) Serum Glucose 190 mg/dL (74-106) Calcium Level 8.3 mg/dL (8.7-10.4) Total Bilirubin 0.9 mg/dL (0.2-1.0) Aspartate Amino Transferase (AST) 27 U/L (13-40) Alanine Aminotransferase (ALT) 26 U/L (7-40) Alkaline Phosphatase 124 U/L (46-116) Total Protein 6.3 g/dL (5.7-8.2) Albumin 3.3 g/dL (3.2-4.8) Troponin I High Sensitivity 527 ng/L (</=54) Phosphorus Level 2.7 mg/dL (2.4-5.1) Magnesium Level 2.1 mg/dL (1.6-2.6) Other Laboratory Tests 02/21/25 05:25 Brief Hx & Hospital Course: CT year old male with a history of hypertension coronary artery disease ESRD on hemodialysis came in for headache. Blood pressure was normal CT head was negative CVA ruled out seen by Nephrology board with the patient can be discharged home troponin 472 possibly secondary to ESRD. patient denies any chest pain or shortness of breath. patient does not want any workup and wants to be discharged home today Consults/Reason for consult Nephrology Operations or Procedures CT head Condition at Discharge: Fair Final Diagnosis/Problems List End-stage renal disease on hemodialysis consult by appreciated cleared for discharge by nephrology Admitted to the hospital for headache and rule out CVA, CT of the head is negative Hypertension controlled History of Coronary artery disease Troponin 472, possibly secondary to ESRD, Discharge Disposition: Home Discharge Instruct/Medications Diet: Renal Activity: Light activity Follow Up/Referral: Resume regular dialysis Saturday with [facility] dialysis Resume all previous home medications Follow up with the primary Medications: None Scheduled Amiodarone Hcl (Amiodarone Hcl), 200 TAB PO DAILY, (Reported) Apixaban Base (Eliquis), 5 MG PO BID Atorvastatin Calcium (Lipitor), 1 TAB PO QPM Bumetanide (Bumetanide), 1 TAB PO BID Digoxin (Digoxin), 125 MCG PO DAILY, (Reported) Fluticasone Propionate (Nasal) (Fluticasone Propionate), 1 SPRAY SUSAN DAILY, (Reported) Insulin Regular (Human) (Novolin R), 0 UNITS SC TIDWM Metoprolol Succinate (Metoprolol Succinate Er), 50 MG PO DAILY, (Reported) Propranolol HCl (Propranolol Hydrochloride), 20 MG PO DAILY, (Reported) Sevelamer Carbonate (Sevelamer Carbonate), 2 TAB PO TID, (Reported) Durable Medical Equipment Blood Glucose Monitoring Suppl (D-Care Glucometer Kit/Glu W/Device), KIT XX ACHS, (DME) Lancets (Freestyle Lancets), BOX XX ACHS, (DME) 39 (Time taken for discharge summary 39 minutes) Discharge Statement: "Patient was advised to return to the ER or call 911 if any headaches, dizziness, shortness of breath, chest pain, abdominal pain, bleeding, fevers, or worsening of medical condition. Patient was counseled about treatment plan, medications, possible side effects, patientverbalized understanding. All questions were answered to the best of my ability. This discharge took greater then 30 minutes in planning, reviewing documentation, counseling the patient, and discussing with other team members." ASSESSMENT ASSESSMENT Hospital Course Improved Assessment End-stage renal disease on hemodialysis consult by appreciated cleared for discharge by nephrology Admitted to the hospital for headache and rule out CVA, CT of the head is negative Hypertension controlled History of Coronary artery disease Troponin 472, possibly secondary to ESRD, Date of Service: Feb 21, 2025 Billing Provider: ROBERT GARCIA MD Common Visit Codes: [id number] DISCH DAY >30min ROBERT GARCIA MD Feb 21, 2025 12:36
[2025-02-21 12:43] VITALS: BP 118/82; PULSE 77; RESP 18; TEMP 97.1; O2SAT 98
== END 2025-02-21 15:10 | disposition home or self-care (01) | DRG 54 ==
LOC: ER 06:51 → EDBD 06:51 → OVERFLOW 12:55 → TELE-WESTW 18:51
PROVIDERS: ADMIT Nurse Practitioner Family; ATTEND Nurse Practitioner Family
DX: R51.9 Headache, unspecified (principal); I13.2 Hypertensive heart and chronic kidney disease with heart failure and with stage 5 chronic kidney disease, or end stage renal disease; D69.6 Thrombocytopenia, unspecified; N18.6 End stage renal disease; I24.89 Other forms of acute ischemic heart disease; I50.9 Heart failure, unspecified; Z99.2 Dependence on renal dialysis; E11.22 Type 2 diabetes mellitus with diabetic chronic kidney disease; Z91.158 Patient's noncompliance with renal dialysis for other reason; E11.65 Type 2 diabetes mellitus with hyperglycemia; E78.5 Hyperlipidemia, unspecified; I48.91 Unspecified atrial fibrillation; I25.10 Atherosclerotic heart disease of native coronary artery without angina pectoris; R09.89 Other specified symptoms and signs involving the circulatory and respiratory systems; Z79.4 Long term (current) use of insulin; Z80.1 Family history of malignant neoplasm of trachea, bronchus and lung; Z82.3 Family history of stroke; Z87.440 Personal history of urinary (tract) infections; Z79.899 Other long term (current) drug therapy
CPT/HCPCS: 36415; 70450; 71045; 80048; 80053; 82962; 83735; 84100; 84484; 85025; 97163; 99291; 99292; G0378; J1815